=== PATIENT | female | born 1990 | race Caucasian/White ===

== ENCOUNTER 2023-01-01 08:58 | Outpatient (AMB) | payer OTHER, SELFPAY ==
--- NOTE | 2023-01-01 08:59 | MHC.PC.OV ---
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: No Accompanied by: Self / Same As Patient Allergies No Known Allergies Allergy (Verified 01/01/23 09:31) Medication List - Last Reconciled 01/01/23 by Leonel Shipman MD albuterol sulfate 90 mcg/actuation 2 puffs inhalation Q6H PRN cetirizine (Zyrtec) 10 mg PO DAILY PRN fluticasone furoate-vilanterol 100-25 mcg/dose (Breo Ellipta) 1 inh inhalation DAILY fluticasone propionate 50 mcg/actuation 1 spray intranasal DAILY Tobacco use date assessed: 01/01/23 Dental Screening Dental Screen Date: 01/01/23 Did you have a dental visit in the last 12 months?: Yes Did you have a dental problem in the last 6 months where you did not have access to dental care?: No Was dental information given to patient?: Patient has dentist HPI 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 HPI Details Patient comes in today to establish care - is a new patient to the practice Previous PCP was in [place] States that she currently has a few issues that she is concerned about Relates that she tested positive for COVID back in August 2019 and has been experiencing recurrent asthma-like symptoms since States that she has never had asthma growing up and has had no respiratory problems until then Has been advised by her previous PCP after work ups were done that her symptoms are most likely due to long-COVID She has had 2 PFTs done over the past couple of years, in 05/2021 and 05/2022 - both PFTs came back normal Recalls that she has been tried on another inhalers (Flovent BID) previously but she did not respond too well to it Was eventually switched over to Breo Ellipta and her symptoms have responded to this better and she is presently doing well on Breo Has noticed also that her activity tolerance has improved significantly on Breo Ellipta lately She's had a few work ups done over the last 2 to 3 years for her symptoms - had chest CT done in 12/2021 that came out negative with NO evidence of any interstitial lung disease Relates that she smoked just about 1/3 pack per day on average when she was about 17 to 22 y/o but has stopped smoking completely since She continues to follow up with a corporate communications specialist (Dr. Mar Deras) at [facility] for her respiratory issues Relates that she was experiencing on and off palpitations as well with her COVID diagnosis a couple of years ago Had cardiac workups done to evaluate these further - exams include a 48-hours Holter monitor done on 08/14/22 that revealed (+) sinus rhythm with few PACs and PVCs Echocardiogram done in 04/15 came out normal Adds that she noticed some nodules over her supraclavicular areas, especially on the left side, a few months ago and mentioned these to her previous PCP She recently had soft tissue US done a couple of times (10/2022 and 12/2022) over the past few months to have these evaluated Both sonogram came back with only (+) borderline lymphadenopathy and no other abnormalities Patient last had her fasting lipids checked a year ago in 11/2021 - lipids were within normal limits She currently denies any fever or sore throat Denies any headaches or dizziness Denies any chest pains, no SOB No nausea/vomiting, no abdominal pain No change in bowel habits noted Denies any acute urinary symptoms States that she has been on control (Nuvaring) since 14 y/o, mostly for her menstrual cramps, but she decided to stop it on her own recently on 12/23/22 - states that she just wanted to see what would happen if she comes off her Nuvaring States that her is getting a vasectomy next month and if she has no problems after coming off her Nuvaring, then she may decide to just stay off of it for good States that she has already requested and arranged for copies of her medical records to be sent to us from her previous PCP's office a few weeks ago [facility] Medical History (Updated 01/02/23 @ 10:14 by Leonel Shipman MD) Allergic rhinitis COVID-19 (~08/2019) Obesity (BMI 30-39.9) Reactive airway disease Surgical History (Updated 01/02/23 @ 10:01 by Leonel Shipman MD) No pertinent past surgical history Family History Other Diabetes Heart attack Mental health problem Stroke Substance abuse Social History (Updated 01/02/23 @ 10:03 by Leonel Shipman MD) Housing: Other Patient Tobacco Use Status: Former Tobacco user Years Smoked: 5 years - from age 17 to 22 (smoked about 1/3 pack per day at the time) e-Cigarette/Vaping Use: Never Used service: No Current occupational status: employed Cognitive needs: No Hearing needs: No Vision needs: No Female Reproductive History Menstrual control method: vaginal ring (on Nuvaring since 14 y/o but stopped using it on her own since 12/23/2022) Questionnaire PHQ-9 Over the last 2 weeks, how often have you been bothered by any of the following problems? 1. Little interest or pleasure in doing things: not at all 2. Feeling down, depressed, or hopeless: not at all 3. Trouble falling or staying asleep, or sleeping too much: not at all 4. Feeling tired or having little energy: not at all 5. Poor appetite or overeating: not at all 6. Feeling bad about yourself - or that you are a failure or have let yourself or your family down: not at all 7. Trouble concentrating on things, such as reading the newspaper or watching television: not at all 8. Moving or speaking so slowly that other people could have noticed. Or the opposite - being so fidgety or restless that you have been moving around a lot more than usual: not at all 9. Thoughts that you would be better off or of hurting yourself in some way: not at all Total score: 0 Depression Screening Interpretation: Negative 66170 - PHQ-9 Billing: Yes Source: Developed by Drs. Gaston Henson, Edilma Zhou, Carlos Chavez and colleagues, with an educational jacob from [employer]. Thrive Questionnaire Date Thrive assessed: 01/01/23 I am a: Patient What is your living situation today?: I have a steady place to live Within the past 12 months, did the food you bought not last and you didn't have the money to get more?: Never true Within the past 12 months, did you worry whether your food would run out before you got money to buy more?: Never true Do you have trouble paying for medicines?: No Do you have trouble getting transportation to medical appointments?: No Do you have trouble paying your heating and electricity bill?: No Do you have trouble taking care of your child, family member or friend?: No Do you have trouble with day-to-day activities such as bathing, preparing meals, shopping, managing finances, etc.?: No Are you currently unemployed and looking for a job?: No Are you interested in more education?: No Please select the resources that you would like help with: None Currently or been in a relationship where the following occur: no concerns reported AUDIT C Alcohol Use Questionnaire (AUDIT-C) 1. How often do you have a drink containing alcohol?: 2-4 times a month 2. How many drinks containing alcohol do you have on a typical day when you are drinking?: 1 or 2 3. How often do you have six or more drinks on one occasion?: Never Total Score: 2 Score Reviewed/Action Taken: Yes LOPEZ-7 AMB Questionnaire LOPEZ-7 Date LOPEZ - 7 assessed: 01/01/23 Feeling nervous, anxious, or on edge: 0 = Not at all Not being able to stop or control worryin = Not at all Worrying too much about different things: 0 = Not at all Trouble relaxin = Not at all Being so restless that it is hard to sit still: 0 = Not at all Becoming easily annoyed or irritable: 0 = Not at all Feeling afraid as if something awful might happen: 0 = Not at all Total LOPEZ-7 score (0-4 normal; 5-9 mild; 10-14 moderate; 15-21 severe): 0 Source: Developed by Drs. Gaston Henson, Edilma Zhou, Carlos Chavez and colleagues, with an educational jacob from [employer]. Review of Systems Const Denies chills, Denies fatigue, Denies fever(s), Denies headache(s) and Denies malaise Eyes Denies blurry vision, Denies change in vision, Denies irritation and Denies itchy eyes ENT Denies dysphagia, Denies dizziness, Denies otalgia, Denies headache(s), Denies nasal congestion, Denies neck pain, Denies odynophagia, Denies sinus pain and Denies sore throat Card Denies chest pain, Denies rapid heart rate, Denies irregular heart rhythm, Denies palpitations and Reports dyspnea on exertion (mild) Resp Denies chest congestion, Denies cough, Reports dyspnea on exertion (mild) and Denies wheezing GI Denies abdominal pain, Denies bloating, Denies constipation, Denies dysphagia, Denies heartburn, Denies diarrhea, Denies nausea, Denies odynophagia and Denies vomiting Denies hematuria, Denies urinary frequency, Denies dysuria, Denies urinary incontinence and Denies urinary urgency Musc Denies back pain, Denies arthralgias, Denies joint swelling, Denies muscle weakness and Denies neck pain Skin/Breast Denies breast pain, Denies breast mass, Denies change in pigmentation, Denies lesions, Denies rash and Denies unusual bruising Neuro Denies dizziness, Denies headache(s) and Denies paresthesias Psych Denies anxiety and Denies depression Endo Denies fatigue and Denies palpitations Jose/Lymph Denies easy bruising and Reports lymphadenopathy (over the supraclavicular area lately - see HPI) Aller/Immun Denies itchy eyes and Denies wheezing Physical exam (Primary Care) Vital Signs: Last Vital Signs Pulse 84 01/01/23 09:10 BP 110/78 01/01/23 09:10 Pulse Ox 98 01/01/23 09:10 Oxygen Delivery Method Room Air 01/01/23 09:10 BMI result Body Mass Index 33.5 Tobacco/Smoking Status: Tobacco use Status Tobacco use date assessed 01/01/23 01/01/23 09:01 e-Cigarette/Vaping Use Never Used 01/01/23 09:01 PHQ-9: PHQ-9 Score PHQ-9: Total score 0 01/01/23 09:41 Depression Screening Interpretation: Negative Thrive Assessment: Date of Thrive Assessment Date Thrive assessed 01/01/23 01/01/23 09:01 Currently or been in a relationship where the following occur: no concerns reported Const General: no acute distress, alert and awake Orientation/consciousness: patient oriented x3 HENMT Head: Yes normocephalic and Yes atraumatic Ears: external ears normal, TM's normal bilaterally and EAC's normal General nose exam: No nasal discharge present Face and sinus: Yes normal facial exam and Yes sinuses nontender Teeth and gingiva: dentition normal Throat: Yes posterior oropharynx normal and Yes tonsils normal (no TP congestion) Eyes Eyelids: Yes eyelids normal Conjunctivae: conjunctivae normal Pupils: Equal, round and reactive pupils present EOM: EOMs intact bilaterally Neck Neck: Yes no lymphadenopathy and Yes supple Thyroid: Thyroid normal Lymphatic: lymphadenopathy ((+) palpable but non-tender) left supraclavicular Resp Auscultation: clear to auscultation bilaterally, no rales and no wheezes Cardio Rate: regular rate Rhythm: regular rhythm Heart sounds: no murmurs GI Palpation (GI): Soft to palpation, nontender and No hepatosplenomegaly present Auscultation: normal bowel sounds General: Yes no CVA tenderness Back/Spine/Pelvis Back: no CVA tenderness Thoracic/Lumbar Spine: thoracic and lumbar spine normal to inspection Skin Lesions: no lesions Rashes: no rashes Neuro General: patient oriented x3, moves all extremities, no focal motor deficits and CN's II-XI intact bilaterally Cranial nerves: Yes Equal, round and reactive pupils present Cognition (Neuro): normal cognition Gait exam (Neuro): Normal gait present Extrem General: Yes no clubbing, cyanosis or edema Assessment and Plan Assessment & Plan (1) Annual physical exam: Code(s): Z00.00 - Encounter for general adult medical examination without abnormal findings Plan: Check labs (2) Reactive airway disease: Comment: symptoms started after she tested positive for COVID in August 2019 Code(s): J45.909 - Unspecified asthma, uncomplicated Qualifiers: Asthma severity: unspecified severity Asthma persistence: unspecified Asthma complication type: uncomplicated Qualified Code(s): J45.909 - Unspecified asthma, uncomplicated Plan: Is most likely due to long-COVID Patient has had extensive work ups done by her previous PCP and by pulmonary at [facility] over the past 2 to 3 years, including chest CT, x-rays and PFTs, and all of her tests so far have come back negative/normal Continue Breo Ellipta 100-25 mcg 1 inhalation QD and Albuterol HFA 2 inhalations Q 6 hours PRN Follow up with pulmonary medicine at [facility] as scheduled (3) Supraclavicular lymphadenopathy: Code(s): R59.0 - Localized enlarged lymph nodes Plan: Soft tissue US done in 10/2022 and more recently earlier this month (12/2022) both revealed (+) borderline enlarged lymph nodes with no other abnormalities noted Discussed that this is likely a reactive lymphadenopathy, possibly related to her long-COVID symptoms Will also send her for some additional labs for further evaluation and work up for this issue (4) Allergic rhinitis: Code(s): J30.9 - Allergic rhinitis, unspecified Plan: Continue Cetirizine 10 mg QD PRN and Fluticasone 50 mcg nasal spray QD PRN (5) Obesity (BMI 30-39.9): Code(s): E66.9 - Obesity, unspecified Plan: Reinforced diet/exercise as tolerated/lose weight Plan Follow up in 3 months Orders: Orders Comprehensive Met. Panel 01/01/23 J45.909 - Unspecified asthma, uncomplicated, R59.0 - Localized enlarged lymph nodes, Z00.00 - Encounter for general adult medical examination without abnormal findings C Reactive Protein 01/01/23 J45.909 - Unspecified asthma, uncomplicated, R59.0 - Localized enlarged lymph nodes TSH reflex Free T4 01/01/23 J45.909 - Unspecified asthma, uncomplicated, Z00.00 - Encounter for general adult medical examination without abnormal findings Vitamin D 25-OH Total 01/01/23 E55.9 - Vitamin D deficiency, unspecified Complete Blood Count Auto Diff 01/01/23 J45.909 - Unspecified asthma, uncomplicated, R59.0 - Localized enlarged lymph nodes, Z00.00 - Encounter for general adult medical examination without abnormal findings Erythrocyte Sedimentation Rate 01/01/23 R59.0 - Localized enlarged lymph nodes UA CC w/rflx Micro + Cult 01/01/23 R30.0 - Dysuria, Z00.00 - Encounter for general adult medical examination without abnormal findings Lactate Dehydrogenase 01/01/23 R59.0 - Localized enlarged lymph nodes Uric Acid 01/01/23 J45.909 - Unspecified asthma, uncomplicated, M10.9 - Gout, unspecified, R59.0 - Localized enlarged lymph nodes Cat Scratch Titer 01/01/23 R59.0 - Localized enlarged lymph nodes Hepatitis C Antibody Reflex 01/01/23 R59.0 - Localized enlarged lymph nodes Coding Level of Care Code Est Pt Prev Care [id number]) Diagnoses Annual physical exam Z00.00 Reactive airway disease J45.909 Asthma severity: unspecified severity Asthma persistence: unspecified Asthma complication type: uncomplicated Supraclavicular lymphadenopathy R59.0 Allergic rhinitis J30.9 Obesity (BMI 30-39.9) E66.9
[2023-01-01 09:10] VITALS: BP 110/78; PULSE 84; O2SAT 98; BMI 33.5
== END 2023-01-01 10:06 | disposition home or self-care (01) ==
PROVIDERS: PCP Internal Medicine; Visit Provider Internal Medicine
DX: Z00.00 Encounter for general adult medical examination without abnormal findings (principal); J45.909 Unspecified asthma, uncomplicated; R59.0 Localized enlarged lymph nodes; E66.9 Obesity, unspecified
CPT/HCPCS: 99395

== ENCOUNTER 2023-01-01 10:11 | Outpatient (REF) | payer OTHER, SELFPAY ==
[2023-01-01 10:38] LABS: MANUAL DIFF FLAG NO
[2023-01-01 11:13] LABS: Basophils Percent Auto 0.5 % (0-2); Eosinophils Absolute Auto 0.1 X10*3/uL (0.0-0.4); Eosinophils Percent Auto 1.1 % (0-4); Hematocrit 42.1 % (37.0-47.0); Hemoglobin 13.7 g/dl (12.0-16.0); Imm Gran Abs Auto 0.01 X10*3/uL (0.00-0.03); Imm Gran Pct Auto 0.2 % (0.0-0.4); Lymphocytes Absolute Auto 1.9 X10*3/uL (1.2-4.9); Lymphocytes Percent Auto 29.4 % (20-40); Mean Corpuscular HGB Conc 32.5 g/dl (31.0-35.0); Mean Corpuscular Hemoglobin 28.1 pg (27.0-33.0); Mean Corpuscular Volume 86.4 fL (80.0-98.0); Monocytes Absolute Auto 0.4 X10*3/uL (0.1-1.2); Monocytes Percent Auto 6.2 % (2-11); Neutrophils Absolute Auto 4.1 x10*3/uL (2.0-8.3); Neutrophils Percent Auto 62.6 % (45-73); Platelet Count 303 X10*3/uL (160-400); Red Blood Count 4.87 X10*6/uL (4.20-5.50); Red Cell Distribution Width 12.6 % (11.0-16.0); White Blood Count 6.6 X10*3/uL (4.8-10.8)
[2023-01-01 11:14] LABS: Appearance Urine Clear; Color Urine Yellow; Glucose Urine UA Negative (Negative); Leukocyte Esterase Urine Negative (Negative); Nitrite Urine Negative (Negative); PH 6.5 (5.0-9.0); Specific Gravity - Urine <= 1.005 (1.005-1.025); Urine Blood Negative (Negative); Urine Ketones Negative (Negative); Urine Protein Negative (Neg-Trace)
[2023-01-01 11:52] LABS: Erythrocyte Sedimentation Rate 10 MM/HR (0-20)
[2023-01-01 11:53] LABS: Alanine Aminotransferase 25 U/L (0-31); Albumin Level 4.4 g/dL (3.5-5.0); Alkaline Phosphatase 66 U/L (39-117); Anion Gap 12 (12-20); Aspartate Amino Transferase 20 U/L (5-31); Bilirubin Total 0.7 mg/dL (0.0-1.0); Blood Urea Nitrogen 9 mg/dL (9-16); C Reactive Protein 0.51 mg/dL (< or = 0.50); Calcium 9.6 mg/dL (8.4-10.2); Carbon Dioxide 26 mmol/L (22-29); Chloride 106 mmol/L (96-108); Estimated Glomerular Filt Rate > 60; Glucose Random 78 mg/dL (60-115); Lactate Dehydrogenase 214 U/L (122-220); Potassium 4.4 mmol/L (3.3-5.1); Sodium 140 mmol/L (135-145); Total Protein 7.6 g/dL (6.5-8.0)
[2023-01-01 12:09] LABS: TSH reflex Free T4 1.34 uIU/mL (0.32-4.0); Vitamin D 25-OH Total 39.6 ng/mL (>30)
[2023-01-02 03:28] LABS: ~HepC Num1 0.21 S/CO (0.00-0.79); ~Hepatitis C Antibody Nonreactive (Nonreactive)
== END 2023-01-01 10:12 | disposition home or self-care (01) ==
LOC: HO.LAB 10:11
PROVIDERS: PCP Internal Medicine; Visit Provider Internal Medicine
DX: Z00.00 Encounter for general adult medical examination without abnormal findings (principal); J45.909 Unspecified asthma, uncomplicated; R59.0 Localized enlarged lymph nodes; R30.0 Dysuria; E55.9 Vitamin D deficiency, unspecified; M10.9 Gout, unspecified; R53.83 Other fatigue; E66.9 Obesity, unspecified
CPT/HCPCS: 36415; 80053; 81003; 82306; 83615; 84443; 84550; 85025; 85652; 86140; 86611; 86803

== ENCOUNTER 2023-04-07 10:56 | Outpatient (AMB) | payer OTHER, SELFPAY ==
[2023-04-07 10:57] VITALS: BP 116/80; PULSE 93; O2SAT 98; BMI 33.5
--- NOTE | 2023-04-07 10:57 | MHC.PC.OV ---
Vital Signs 04/07/23 10:57 Height 5 ft 4.5 in Weight 198 lb 6 oz BMI 33.5 BP 116/80 Blood Pressure Location Lt brachial Position Sitting Pulse 93 Pulse Source Pulse Oximeter Pulse Oximetry (%) 98 Oxygen Delivery Method Room Air Intake Visit Reasons: 3 month f/u [employer]arel [employer]ro[employer] Digitizer Required: No Accompanied by: Self / Same As Patient Allergies No Known Allergies Allergy (Verified 04/07/23 11:36) Medication List - Last Reconciled 04/07/23 by Leonel Shipman MD albuterol sulfate 90 mcg/actuation 2 puffs inhalation Q6H PRN cetirizine (Zyrtec) 10 mg PO DAILY PRN fluticasone furoate-vilanterol 100-25 mcg/dose (Breo Ellipta) 1 inh inhalation DAILY fluticasone propionate 50 mcg/actuation 1 spray intranasal DAILY Tobacco use date assessed: 04/07/23 Dental Screening Dental Screen Date: 04/07/23 Did you have a dental visit in the last 12 months?: Yes Did you have a dental problem in the last 6 months where you did not have access to dental care?: No Was dental information given to patient?: Patient has dentist HPI 3 month f/u HPI Details Patient comes in today for her follow up visit States that she continues to experience symptoms of chronic fatigue as well as on and off palpitations and frequent sensations of brain fog Cardiac workups done in the past revealed only (+) few PACs and PVCs; her rhythm is sinus; echocardiogram done in 03/2022 came out normal Adds that she still has prominent nodes/nodules over her supraclavicular areas, especially on the left side, and these are mostly the same as before with no change in size; no tenderness is noted with these nodules She had soft tissue US done in 10/2022 and 12/2022 and both sonogram showed only (+) borderline lymphadenopathy with no other abnormalities She is scheduled for a follow up/repeat soft tissue US next month on 04/30/23 at [facility] Patient denies any headaches or dizziness Denies any chest pains, no SOB - states that her breathing seems to be well-controlled on her Breo Ellipta and she continues to follow up with pulmonary at [facility] [place] regularly No nausea/vomiting, no abdominal pain No change in bowel habits noted Would like to go over the results of her labs done a few months ago - she has been advised previously that her labs were all normal Would also like to get her flu shot today PFSH Medical History Obesity (BMI 30-39.9) Allergic rhinitis COVID-19 (~08/2019) Reactive airway disease Surgical History No pertinent past surgical history Family History Other Diabetes Heart attack Mental health problem Stroke Substance abuse Social History Housing: Other Patient Tobacco Use Status: Former Tobacco user Years Smoked: 5 years - from age 17 to 22 (smoked about 1/3 pack per day at the time) e-Cigarette/Vaping Use: Never Used service: No Current occupational status: employed Cognitive needs: No Hearing needs: No Vision needs: No Questionnaire PHQ-9 Over the last 2 weeks, how often have you been bothered by any of the following problems? 1. Little interest or pleasure in doing things: not at all 2. Feeling down, depressed, or hopeless: not at all 3. Trouble falling or staying asleep, or sleeping too much: not at all 4. Feeling tired or having little energy: not at all 5. Poor appetite or overeating: not at all 6. Feeling bad about yourself - or that you are a failure or have let yourself or your family down: not at all 7. Trouble concentrating on things, such as reading the newspaper or watching television: not at all 8. Moving or speaking so slowly that other people could have noticed. Or the opposite - being so fidgety or restless that you have been moving around a lot more than usual: not at all 9. Thoughts that you would be better off or of hurting yourself in some way: not at all Total score: 0 Depression Screening Interpretation: Negative Depression Screening Done: Yes [id number] - PHQ-9 Billing: Yes Source: Developed by Drs. Gaston Henosn, Edilma Zhou, Carlos Chavez and colleagues, with an educational jacob from [employer]. Thrive Questionnaire Date Thrive assessed: 04/07/23 I am a: Patient What is your living situation today?: I have a steady place to live Within the past 12 months, did the food you bought not last and you didn't have the money to get more?: Never true Within the past 12 months, did you worry whether your food would run out before you got money to buy more?: Never true Do you have trouble paying for medicines?: No Do you have trouble getting transportation to medical appointments?: No Do you have trouble paying your heating and electricity bill?: No Do you have trouble taking care of your child, family member or friend?: No Do you have trouble with day-to-day activities such as bathing, preparing meals, shopping, managing finances, etc.?: No Are you currently unemployed and looking for a job?: No Are you interested in more education?: No Please select the resources that you would like help with: None Currently or been in a relationship where the following occur: no concerns reported AUDIT C Alcohol Use Questionnaire (AUDIT-C) 1. How often do you have a drink containing alcohol?: 2-4 times a month 2. How many drinks containing alcohol do you have on a typical day when you are drinking?: 1 or 2 3. How often do you have six or more drinks on one occasion?: Never Total Score: 2 Score Reviewed/Action Taken: Yes LOPEZ-7 AMB Questionnaire LOPEZ-7 Date LOPEZ - 7 assessed: 04/07/23 Feeling nervous, anxious, or on edge: 0 = Not at all Not being able to stop or control worryin = Not at all Worrying too much about different things: 0 = Not at all Trouble relaxin = Not at all Being so restless that it is hard to sit still: 0 = Not at all Becoming easily annoyed or irritable: 0 = Not at all Feeling afraid as if something awful might happen: 0 = Not at all Total LOPEZ-7 score (0-4 normal; 5-9 mild; 10-14 moderate; 15-21 severe): 0 Source: Developed by Drs. Gaston Henson, Edilma Zhou, Carlos Chavez and colleagues, with an educational jacob from [employer]. Review of Systems Const Denies chills, Reports fatigue, Denies fever(s) and Denies headache(s) ENT Denies dysphagia, Denies dizziness, Denies otalgia, Denies headache(s), Denies nasal congestion, Denies neck pain, Denies odynophagia and Denies sore throat Card Denies chest pain, Denies rapid heart rate, Denies irregular heart rhythm ((+) on and off sensations of palpitations), Denies palpitations and Reports dyspnea on exertion (mild) Resp Denies chest congestion, Denies cough, Denies pain on inspiration, Reports dyspnea on exertion (mild) and Denies wheezing GI Denies abdominal pain, Denies bloating, Denies constipation, Denies dysphagia, Denies heartburn, Denies diarrhea, Denies nausea, Denies odynophagia and Denies vomiting Denies hematuria, Denies urinary frequency, Denies dysuria, Denies urinary incontinence and Denies urinary urgency Musc Denies back pain, Denies arthralgias, Denies joint swelling, Denies muscle weakness and Denies neck pain Skin/Breast Denies rash and Denies unusual bruising Neuro Denies dizziness, Denies headache(s) and Denies paresthesias Psych Denies anxiety and Denies depression Endo Reports fatigue and Denies palpitations Jose/Lymph Denies easy bruising and Reports lymphadenopathy (over the supraclavicular area, especially on the left side) Aller/Immun Denies wheezing Physical exam (Primary Care) Vital Signs: Last Vital Signs Pulse 93 04/07/23 10:57 BP 116/80 04/07/23 10:57 Pulse Ox 98 04/07/23 10:57 Oxygen Delivery Method Room Air 04/07/23 10:57 BMI result Body Mass Index 33.5 Tobacco/Smoking Status: Tobacco use Status Tobacco use date assessed 04/07/23 04/07/23 11:04 Patient Tobacco Use Status Former Tobacco user 04/07/23 11:04 e-Cigarette/Vaping Use Never Used 04/07/23 11:04 PHQ-9: PHQ-9 Score PHQ-9: Total score 0 04/07/23 11:38 Depression Screening Interpretation: Negative Thrive Assessment: Date of Thrive Assessment Date Thrive assessed 04/07/23 04/07/23 11:04 Currently or been in a relationship where the following occur: no concerns reported Const General: no acute distress and alert HENMT Ears: TM's normal bilaterally and EAC's normal Face and sinus: Yes sinuses nontender Throat: Yes posterior oropharynx normal and Yes tonsils normal (no TP congestion) Neck Other: (+) prominent supraclavicular lymph nodes, especially on the left side Neck: Yes supple Thyroid: Thyroid normal Lymphatic: lymphadenopathy ((+) palpable but non-tender) Resp Auscultation: clear to auscultation bilaterally, no rales and no wheezes Cardio Rate: regular rate Rhythm: regular rhythm Heart sounds: no murmurs GI Palpation (GI): Soft to palpation and nontender Auscultation: normal bowel sounds General: Yes no CVA tenderness Back/Spine/Pelvis Back: no CVA tenderness Thoracic/Lumbar Spine: thoracic and lumbar spine normal to inspection Skin Rashes: no rashes Extrem General: Yes no clubbing, cyanosis or edema Office Procedures Flu Questionnaire Does the patient have a severe egg allergy?: No Does the patient have severe life threatening allergies?: No Does the patient have a fever or illness today?: No Has the patient ever had Guillain-Julian Syndrome?: No Has the patient ever had any past reaction to a flu shot?: No Immunizations flu vacc [id number] 6mos up(PF) 60 mcg(15 mcgx4)/0.5 mL IM syringe Performing Provider: Leonel Shipman MD [facility] Administered by: Agus Yung on 04/07/23 11:53 Dose Route Admin Location Dispensed Lot Number Expiration Date NDC [employer] 0.5 mL IM Left Deltoid 0.5 mL [id number] 11/22/23 56430-908-27 [employer] VIS Given Date VIS Provided VIS Publication Date 04/07/23 Single Vaccine 20 Eligibility Eligibility Date Funding Source Not [facility] Eligible 04/07/23 Private Results Reviewed Results Reviewed: Laboratory Tests 01/01/23 01/01/23 01/01/23 10:37 10:37 10:37 WBC 6.6 Hgb 13.7 Hct 42.1 Plt Count 303 ESR 10 Sodium 140 Potassium 4.4 Creatinine 0.74 Estimated GFR > 60 Random Glucose 78 Uric Acid 5.0 Calcium 9.6 AST 20 ALT 25 Lactate Dehydrogenase 214 C-Reactive Protein 0.51 H 25-OH Vitamin D Total 39.6 TSH 1.34 Urine pH Ur Specific [place] Urine Protein Urine Glucose (UA) Urine Blood Bartonella henselae IgG Negative Bartonella henselae IgM Negative Hepatitis C Ab (EIA) Nonreactive 01/01/23 01/01/23 Unknown Unknown WBC Hgb Hct Plt Count ESR Sodium Potassium Creatinine Estimated GFR Random Glucose Uric Acid Calcium AST ALT Lactate Dehydrogenase C-Reactive Protein 25-OH Vitamin D Total TSH Urine pH 6.5 Ur Specific [place] <= 1.005 Urine Protein Negative Urine Glucose (UA) Negative Urine Blood Negative Bartonella henselae IgG Bartonella henselae IgM Hepatitis C Ab (EIA) Assessment and Plan Assessment & Plan (1) Long COVID: Code(s): U09.9 - Post COVID-19 condition, unspecified Plan: Patient is advised again that most of her ongoing symptoms are likely due to long-COVID (tested positive for COVID back in August 2019) Results of her labs done a few months ago reviewed and discussed with patient - reassured that ALL of her labs came back normal (2) Supraclavicular lymphadenopathy: Comment: Left side Code(s): R59.0 - Localized enlarged lymph nodes Plan: Soft tissue US done in 10/2022 and in 12/2022 both revealed (+) borderline enlarged lymph nodes with NO other abnormalities noted Advised that all of the additional labs we sent her for in relation to this, including tests for inflammatory markers, serum LDH and tests for Bartonella (Cat's scratch disease), all came back normal or negative Discussed again that this is likely reactive lymphadenopathy, possibly related to her long-COVID symptoms, and no specific intervention is indicated at this time She is scheduled for a follow up US next month on 04/30/2023 (3) Reactive airway disease: Comment: symptoms started after she tested positive for COVID in August 2019 Code(s): J45.909 - Unspecified asthma, uncomplicated Qualifiers: Asthma severity: unspecified severity Asthma persistence: unspecified Asthma complication type: uncomplicated Qualified Code(s): J45.909 - Unspecified asthma, uncomplicated Plan: Is also most likely due to long-COVID Patient has had extensive work ups done by her previous PCP and by pulmonary at [facility] over the past 2 to 3 years, including chest CT, x-rays and PFTs, and all of her tests so far have come back negative/normal Continue Breo Ellipta 100-25 mcg 1 inhalation QD and Albuterol HFA 2 inhalations Q 6 hours PRN Follow up with pulmonary medicine at [facility] [place] as scheduled (4) Allergic rhinitis: Code(s): J30.9 - Allergic rhinitis, unspecified Qualifiers: Allergic rhinitis trigger: unspecified Allergic rhinitis seasonality: unspecified Qualified Code(s): J30.9 - Allergic rhinitis, unspecified Plan: Continue Cetirizine 10 mg QD PRN and Fluticasone 50 mcg nasal spray QD PRN (5) Obesity (BMI 30-39.9): Code(s): E66.9 - Obesity, unspecified Plan: Reinforced diet/exercise as tolerated/lose weight Plan Flu vaccine given today To return in December 2023 for her next annual physical examination Orders: Orders Influenza [id number] Immunization Today Z23 - Encounter for immunization Coding Level of Care Code Est Pt Level 4 (87204) Diagnoses Long COVID U09.9 Supraclavicular lymphadenopathy R59.0 Reactive airway disease without complication, unspecified asthma severity, unspecified whether persistent J45.909 Asthma severity: unspecified severity Asthma persistence: unspecified Asthma complication type: uncomplicated Allergic rhinitis, unspecified seasonality, unspecified trigger J30.9 Allergic rhinitis trigger: unspecified Allergic rhinitis seasonality: unspecified Obesity (BMI 30-39.9) E66.9
== END 2023-04-07 11:59 | disposition home or self-care (01) ==
PROVIDERS: PCP Internal Medicine; Visit Provider Internal Medicine
DX: U09.9 Post COVID-19 condition, unspecified (principal); R59.0 Localized enlarged lymph nodes; E66.9 Obesity, unspecified; Z68.33 Body mass index [BMI] 33.0-33.9, adult; J45.909 Unspecified asthma, uncomplicated; J30.9 Allergic rhinitis, unspecified; Z23 Encounter for immunization
CPT/HCPCS: 90471; 90686; 99214

== ENCOUNTER 2023-04-30 14:31 | Outpatient (REF) | payer OTHER, SELFPAY ==
--- NOTE | ~2023-04-30 | US_ITS ---
EXAMINATION: US SOFT TISSUE HEAD/NECK CLINICAL INFORMATION: Localized enlarged lymph nodes. COMPARISON: None available. TECHNIQUE: Linear transducer forte-scale and color Doppler examination of the left neck. FINDINGS: The cutaneous, subcutaneous, muscular and fascial planes are unremarkable. Within the left cervical region, 0.9 x 0.5 x 0.6 cm, 0.8 x 0.3 x 0.5 cm and 1.4 x 0.9 x 1.2 cm reniform lymph nodes are seen. These show good corticomedullary differentiation and a vascular hilum. No focal cortical thickening is suspected. No mass, cyst or foreign body is seen. US/US soft tiss head and/or neck IMPRESSION: Left cervical lymph nodes are seen, one borderline enlarged. These show benign imaging features. Recommend management on a clinical basis. If of continued clinical concern, consider short-term follow-up ultrasound imaging in 3-6 months to ensure stability/regression.
== END 2023-04-30 14:32 | disposition home or self-care (01) ==
LOC: HO.US 14:31
PROVIDERS: PCP Internal Medicine; Visit Provider Internal Medicine
DX: R22.1 Localized swelling, mass and lump, neck (principal)
CPT/HCPCS: 76536

== ENCOUNTER 2023-09-04 11:55 | Outpatient (AMB) | payer OTHER, SELFPAY ==
[2023-09-04 12:22] VITALS: BP 118/78; PULSE 100; TEMP 36.8; O2SAT 98; BMI 33.4
--- NOTE | 2023-09-04 12:22 | AM.OFFWIN_ITS ---
Intake Vital Signs 09/04/23 12:22 Height 5 ft 4.5 in Weight 197 lb 8 oz BMI 33.4 BP 118/78 Blood Pressure Location Lt brachial Position Sitting Pulse 100 Pulse Source Pulse Oximeter Temp 98.3 F Temp Source Temporal Artery Scan Pulse Oximetry (%) 98 Oxygen Delivery Method Room Air Intake Visit Reasons: Ear & Throat Pain, Sinus Pressure (Lobby) Intake Note: pt is here for c/o ear and throat pain from coughing or post nasal drip, and sinus and head pressure Patient Tobacco Use Status: Former Tobacco user Allergies No Known Allergies Allergy (Verified 09/04/23 12:22) Do you need a note to return to daycare/school/sports/work: Yes HPI HPI Comments History of Present Illness Details 32-year-old female who comes in today co mplaining of left ear pain and sinus pressure for the last 4 days. [facility] Medical History Obesity (BMI 30-39.9) Allergic rhinitis COVID-19 (~08/2019) Reactive airway disease Surgical History No pertinent past surgical history Family History Other Diabetes Heart attack Mental health problem Stroke Substance abuse Social History Housing: Other Patient Tobacco Use Status: Former Tobacco user Years Smoked: 5 years - from age 17 to 22 (smoked about 1/3 pack per day at the time) e-Cigarette/Vaping Use: Never Used service: No Current occupational status: employed Cognitive needs: No Hearing needs: No Vision needs: No Review of Systems Const All systems reviewed & are unremarkable except as noted in HPI and below Eyes Reports no additional complaints ENT Reports otalgia and Reports sinus pressure Card Reports no additional complaints Resp Reports no additional complaints GI Reports no additional complaints Physical Exam Const General: healthy appearing and no acute distress HEENT Head: Yes normal to inspection, Yes normocephalic and Yes atraumatic Ears: hearing grossly normal bilaterally, external ears normal, TM normal on the right and TM abnormal (left) bulging and wth effusion General nose exam: Normal external nose present Face and sinus: Yes sinus tenderness Resp Effort & Inspection: normal respiratory effort Auscultation: clear to auscultation bilaterally Cardio Rate: regular rate Rhythm: regular rhythm Heart sounds: S1 normal heart sound present and S2 normal heart sound present Assessment & Plan Assessment & Plan (1) Otitis media: Code(s): H66.90 - Otitis media, unspecified, unspecified ear Plan: The patient will take antibiotics for 7 days. Follow up with her PCP as needed Plan See plan Medications: New amoxicillin 875 mg PO BID 7 days 14 tabs 0RF Coding Level of Care Code Est Pt Level 3 (93214) Diagnoses Otitis media H66.90
== END 2023-09-04 16:13 | disposition home or self-care (01) ==
PROVIDERS: PCP Internal Medicine; Visit Provider Physician Assistant Medical
DX: H66.90 Otitis media, unspecified, unspecified ear (principal)
CPT/HCPCS: 99213

== ENCOUNTER 2023-09-17 11:43 | Outpatient (AMB) | payer OTHER, SELFPAY ==
[2023-09-17 11:50] VITALS: BP 118/72; PULSE 70; O2SAT 98; BMI 32.4
--- NOTE | 2023-09-17 11:50 | A.OFFPC_ITS ---
Vital Signs 09/17/23 11:50 Height 5 ft 4.5 in Weight 192 lb 0.4 oz BMI 32.4 BP 118/72 Blood Pressure Location Lt brachial Position Sitting Pulse 70 Pulse Source Pulse Oximeter Pulse Oximetry (%) 98 Oxygen Delivery Method Room Air Intake Visit Reasons: Left Ear Discomfort, allergies Dental Assistant Instructor Required: No Allergies No Known Allergies Allergy (Verified 09/17/23 12:09) Medication List - Last Reconciled 09/17/23 by Leonel Shipman MD albuterol sulfate 90 mcg/actuation 2 puffs inhalation Q6H PRN cetirizine (Zyrtec) 10 mg PO DAILY PRN fluticasone furoate-vilanterol 100-25 mcg/dose (Breo Ellipta) 1 inh inhalation DAILY fluticasone propionate 50 mcg/actuation 1 spray intranasal DAILY Tobacco use date assessed: 09/17/23 Dental Screening Dental Screen Date: 09/17/23 HPI Left Ear Discomfort, allergies HPI Details Patient comes in today for follow up on her left ear symptoms She went to the walk-in clinic a couple of weeks ago for increasing left ear pain and sinus pressure and was started on Amoxicillin 875 mg BID x 7 days, which she finished less than a week ago States that her symptoms have improved a lot with her Rx but notes that her ear symptoms never did completely clear up She continues to have some ear pressure and discomfort and feels that her symptoms are starting to get worse again over the past couple of days She denies any fever or sore throat; denies any headaches or dizziness Denies any chest pains, no SOB No nausea/vomiting, no abdominal pain No change in bowel habits noted PFSH Medical History Obesity (BMI 30-39.9) Allergic rhinitis COVID-19 (~08/2019) Reactive airway disease Surgical History No pertinent past surgical history Family History Other Diabetes Heart attack Mental health problem Stroke Substance abuse Social History Housing: Other Patient Tobacco Use Status: Former Tobacco user Years Smoked: 5 years - from age 17 to 22 (smoked about 1/3 pack per day at the time) e-Cigarette/Vaping Use: Never Used service: No Current occupational status: employed Cognitive needs: No Hearing needs: No Vision needs: No Questionnaire PHQ-9 Over the last 2 weeks, how often have you been bothered by any of the following problems? 1. Little interest or pleasure in doing things: not at all 2. Feeling down, depressed, or hopeless: not at all 3. Trouble falling or staying asleep, or sleeping too much: not at all 4. Feeling tired or having little energy: not at all 5. Poor appetite or overeating: not at all 6. Feeling bad about yourself - or that you are a failure or have let yourself or your family down: not at all 7. Trouble concentrating on things, such as reading the newspaper or watching television: not at all 8. Moving or speaking so slowly that other people could have noticed. Or the opposite - being so fidgety or restless that you have been moving around a lot more than usual: not at all 9. Thoughts that you would be better off or of hurting yourself in some way: not at all Total score: 0 Depression Screening Interpretation: Negative Depression Screening Done: Yes 32707 - PHQ-9 Billing: Yes Source: Developed by Drs. Gaston Henson, Edilma Zhou, Carlos Chavez and colleagues, with an educational jacob from [employer]. Thrive Questionnaire Date Thrive assessed: 09/17/23 I am a: Patient What is your living situation today?: I have a steady place to live Within the past 12 months, did the food you bought not last and you didn't have the money to get more?: Never true Within the past 12 months, did you worry whether your food would run out before you got money to buy more?: Never true Do you have trouble paying for medicines?: No Do you have trouble getting transportation to medical appointments?: No Do you have trouble paying your heating and electricity bill?: No Do you have trouble taking care of your child, family member or friend?: No Do you have trouble with day-to-day activities such as bathing, preparing meals, shopping, managing finances, etc.?: No Are you currently unemployed and looking for a job?: No Are you interested in more education?: No Please select the resources that you would like help with: None Currently or been in a relationship where the following occur: no concerns reported THRIVE Score: 0 AUDIT C Alcohol Use Questionnaire (AUDIT-C) 1. How often do you have a drink containing alcohol?: 2-4 times a month 2. How many drinks containing alcohol do you have on a typical day when you are drinking?: 1 or 2 3. How often do you have six or more drinks on one occasion?: Never Total Score: 2 Score Reviewed/Action Taken: Yes LOPEZ-7 AMB Questionnaire LOPEZ-7 Date LOPEZ - 7 assessed: 09/17/23 Feeling nervous, anxious, or on edge: 0 = Not at all Not being able to stop or control worryin = Not at all Worrying too much about different things: 0 = Not at all Trouble relaxin = Not at all Being so restless that it is hard to sit still: 0 = Not at all Becoming easily annoyed or irritable: 0 = Not at all Feeling afraid as if something awful might happen: 0 = Not at all Total LOPEZ-7 score (0-4 normal; 5-9 mild; 10-14 moderate; 15-21 severe): 0 Source: Developed by Drs. Gaston Henson, Edilma Zhou, Carlos Chavez and colleagues, with an educational jacob from [employer]. LOPEZ-7 Assessment Billing LOPEZ-7 Assessment Tool: LOPEZ-7 Assessment 19921 Review of Systems Const Denies chills, Denies fatigue, Denies fever(s) and Denies headache(s) ENT Reports as per HPI, Denies dysphagia, Denies dizziness, Denies ear discharge, D enies otalgia (but reports (+) left ear discomfort/pressure - increasing lately), Denies facial pain, Denies headache(s), Denies neck pain, Denies odynophagia, Reports sinus pressure (especially on the left side) and Denies sore throat Card Denies chest pain, Denies palpitations and Denies dyspnea Resp Denies cough and Denies dyspnea GI Denies abdominal pain, Denies constipation, Denies dysphagia, Denies heartburn, Denies diarrhea, Denies nausea, Denies odynophagia and Denies vomiting Denies difficulty voiding, Denies nocturia, Denies dysuria and Denies urinary urgency Musc Denies neck pain Skin/Breast Denies rash Neuro Denies dizziness and Denies headache(s) Endo Denies fatigue and Denies palpitations Physical exam (Primary Care) Vital Signs: Last Vital Signs Pulse 70 09/17/23 11:50 BP 118/72 09/17/23 11:50 Pulse Ox 98 09/17/23 11:50 Oxygen Delivery Method Room Air 09/17/23 11:50 BMI result Body Mass Index 32.4 Tobacco/Smoking Status: Tobacco use Status Tobacco use date assessed 09/17/23 09/17/23 11:54 Patient Tobacco Use Status Former Tobacco user 09/17/23 11:54 e-Cigarette/Vaping Use Never Used 09/17/23 11:54 PHQ-9: PHQ-9 Score PHQ-9: Total score 0 09/17/23 12:09 Depression Screening Interpretation: Negative Thrive Assessment: Date of Thrive Assessment Date Thrive assessed 09/17/23 09/17/23 11:54 Currently or been in a relationship where the following occur: no concerns reported Const General: no acute distress and alert HENMT Ears: TM normal on the right, EAC's normal (bilaterally) and TM abnormal with fluid behind the TM on the left Throat: Yes posterior oropharynx normal and Yes tonsils normal (no TP congestion) Neck Neck: Yes no lymphadenopathy and Yes supple Resp Auscultation: clear to auscultation bilaterally, no rales and no wheezes Cardio Rate: regular rate Rhythm: regular rhythm Heart sounds: no murmurs GI Palpation (GI): Soft to palpation, nontender and No hepatosplenomegaly present Skin General skin exam: no rashes or lesions noted Extrem General: Yes no clubbing, cyanosis or edema Assessment and Plan Assessment & Plan (1) Otitis media of left ear: Code(s): H66.92 - Otitis media, unspecified, left ear Qualifiers: Otitis media type: unspecified Qualified Code(s): H66.92 - Otitis media, unspecified, left ear Plan: Will start patient this time on Augmentin 875 mg BID x 10 days Have advised patient that her ear symptoms may take a while to completely clear up but they should improve gradually with Rx but if they do not, then we may need to consider referral to ENT for further evaluation and management Plan To return as scheduled in 4 months for her annual physical examination Medications: New amoxicillin-pot clavulanate 875-125 mg 1 tab PO BID 10 days 20 tabs 0RF Coding Level of Care Code Est Pt Level 3 (34362) Diagnoses Left otitis media, unspecified otitis media type H66.92 Otitis media type: unspecified Additional Codes LOPEZ-7 Assessment Billing - LOPEZ-7 Assessment Tool: LOPEZ-7 Assessment 26617 ([id number])
== END 2023-09-17 12:23 | disposition home or self-care (01) ==
PROVIDERS: PCP Internal Medicine; Visit Provider Internal Medicine
DX: H66.92 Otitis media, unspecified, left ear (principal)
CPT/HCPCS: 99213

== ENCOUNTER 2024-01-28 11:05 | Outpatient (AMB) | payer OTHER, SELFPAY ==
[2024-01-28 11:10] VITALS: BP 116/80; PULSE 66; O2SAT 98; BMI 32.2
--- NOTE | 2024-01-28 11:10 | A.OFFPC_ITS ---
Vital Signs 01/28/24 11:10 Height 5 ft 4.5 in Weight 190 lb 8 oz BMI 32.2 BP 116/80 Blood Pressure Location Lt brachial Position Sitting Pulse 66 Pulse Source Pulse Oximeter Pulse Oximetry (%) 98 Oxygen Delivery Method Room Air Intake Visit Reasons: PE Call Worker Required: No Accompanied by: Self / Same As Patient Allergies No Known Allergies Allergy (Verified 01/28/24 11:29) Medication List - Last Reconciled 01/28/24 by Leonel Shipman MD albuterol sulfate 90 mcg/actuation 2 puffs inhalation Q6H PRN cetirizine (Zyrtec) 10 mg PO DAILY PRN fluticasone furoate-vilanterol 100-25 mcg/dose (Breo Ellipta) 1 inh inhalation DAILY fluticasone propionate 50 mcg/actuation 1 spray intranasal DAILY Tobacco use date assessed: 01/28/24 Dental Screening Dental Screen Date: 01/28/24 Did you have a dental visit in the last 12 months?: Yes Did you have a dental problem in the last 6 months where you did not have access to dental care?: No Was dental information given to patient?: Patient has dentist HPI PE HPI Details Patient comes in today for her annual physical examination States that she feels okay but she continues to experience recurrent flare ups of her long-COVID symptoms, especially on the days when she has to present to work in-person, which she states make her feel fatigued and worn down quickly She continues to receive allergy injections/immunotherapy from 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 but states that she is now on a maintenance Tx and just gets her injections once a month - feels that her injections are still helping with her allergies She denies any headaches or dizziness Denies any chest pains, no increased SOB - notes that her respiratory symptoms have been well-controlled on her current Rx (is on Breo Ellipta) but 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 her 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 soon No nausea/vomiting, no abdominal pain No change in bowel habits noted She denies any acute urinary symptoms States that she is up-to-date with her yearly pap smear and gynecology exam - had her exam done already this year [facility] Medical History Obesity (BMI 30-39.9) Allergic rhinitis COVID-19 (~08/2019) Reactive airway disease Surgical History No pertinent past surgical history Family History Other Diabetes Heart attack Mental health problem Stroke Substance abuse Social History Housing: Other Patient Tobacco Use Status: Former Tobacco user Years Smoked: 5 years - from age 17 to 22 (smoked about 1/3 pack per day at the time) e-Cigarette/Vaping Use: Never Used service: No Current occupational status: employed Cognitive needs: No Hearing needs: No Vision needs: No Questionnaire PHQ-9 Over the last 2 weeks, how often have you been bothered by any of the following problems? 1. Little interest or pleasure in doing things: not at all 2. Feeling down, depressed, or hopeless: not at all 3. Trouble falling or staying asleep, or sleeping too much: not at all 4. Feeling tired or having little energy: several days 5. Poor appetite or overeating: not at all 6. Feeling bad about yourself - or that you are a failure or have let yourself or your family down: not at all 7. Trouble concentrating on things, such as reading the newspaper or watching television: several days 8. Moving or speaking so slowly that other people could have noticed. Or the opposite - being so fidgety or restless that you have been moving around a lot more than usual: not at all 9. Thoughts that you would be better off or of hurting yourself in some way: not at all Total score: 2 Depression Screening Interpretation: Negative Depression Screening Done: Yes 11811 - PHQ-9 Billing: Yes Source: Developed by Drs. Gaston Henson, Edilma Zhou, Carlos Chavez and colleagues, with an educational jacob from [employer]. Thrive Questionnaire Date Thrive assessed: 01/28/24 I am a: Patient What is your living situation today?: I have a steady place to live Within the past 12 months, did the food you bought not last and you didn't have the money to get more?: Never true Within the past 12 months, did you worry whether your food would run out before you got money to buy more?: Never true Do you have trouble paying for medicines?: No Do you have trouble getting transportation to medical appointments?: No Do you have trouble paying your heating and electricity bill?: No Do you have trouble taking care of your child, family member or friend?: No Do you have trouble with day-to-day activities such as bathing, preparing meals, shopping, managing finances, etc.?: I choose not to answer this question Are you currently unemployed and looking for a job?: No Are you interested in more education?: No Please select the resources that you would like help with: None Currently or been in a relationship where the following occur: No concerns reported THRIVE Score: 0 AUDIT C Alcohol Use Questionnaire (AUDIT-C) 1. How often do you have a drink containing alcohol?: 2-4 times a month 2. How many drinks containing alcohol do you have on a typical day when you are drinking?: 1 or 2 3. How often do you have six or more drinks on one occasion?: Never Total Score: 2 Score Reviewed/Action Taken: Yes LOPEZ-7 AMB Questionnaire LOPEZ-7 Date LOPEZ - 7 assessed: 01/28/24 Feeling nervous, anxious, or on edge: 0 = Not at all Not being able to stop or control worryin = Not at all Worrying too much about different things: 0 = Not at all Trouble relaxin = Not at all Being so restless that it is hard to sit still: 0 = Not at all Becoming easily annoyed or irritable: 0 = Not at all Feeling afraid as if something awful might happen: 0 = Not at all Total LOPEZ-7 score (0-4 normal; 5-9 mild; 10-14 moderate; 15-21 severe): 0 Source: Developed by Drs. Gaston Henson, Edilma Zhou, Carlos Chavez and colleagues, with an educational jacob from [employer]. Review of Systems Const Reports as per HPI, Denies chills, Denies difficulty sleeping, Reports fatigue, Denies fever(s), Denies headache(s) and Denies malaise Eyes Denies blurry vision, Denies change in vision, Denies irritation and Denies itchy eyes ENT Denies dysphagia, Denies dizziness, Denies otalgia, Denies headache(s), Denies nasal congestion, Denies neck pain, Denies odynophagia, Denies sinus pain and Denies sore throat Card Denies chest pain, Denies rapid heart rate, Denies irregular heart rhythm, Denies palpitations and Denies dyspnea Resp Denies chest congestion, Denies cough, Denies dyspnea and Denies wheezing GI Denies abdominal pain, Denies bloating, Denies constipation, Denies dysphagia, Denies heartburn, Denies diarrhea, Denies nausea, Denies odynophagia and Denies vomiting Denies hematuria, Denies urinary frequency, Denies dysuria, Denies urinary incontinence and Denies urinary urgency Musc Denies back pain, Denies arthralgias, Denies joint swelling, Denies muscle weakness and Denies neck pain Skin/Breast Denies breast pain, Denies breast mass, Denies change in pigmentation, Denies lesions, Denies rash and Denies unusual bruising Neuro Denies dizziness, Denies headache(s) and Denies paresthesias Psych Denies anxiety and Denies depression Endo Reports fatigue and Denies palpitations Jose/Lymph Denies easy bruising Aller/Immun Denies itchy eyes and Denies wheezing Physical exam (Primary Care) Vital Signs: Last Vital Signs Pulse 66 01/28/24 11:10 BP 116/80 01/28/24 11:10 Pulse Ox 98 01/28/24 11:10 Oxygen Delivery Method Room Air 01/28/24 11:10 BMI result Body Mass Index 32.2 Tobacco/Smoking Status: Tobacco use Status Tobacco use date assessed 01/28/24 01/28/24 11:17 Patient Tobacco Use Status Former Tobacco user 01/28/24 11:17 e-Cigarette/Vaping Use Never Used 01/28/24 11:17 PHQ-9: PHQ-9 Score PHQ-9: Total score 2 01/28/24 11:17 Depression Screening Interpretation: Negative Thrive Assessment: Date of Thrive Assessment Date Thrive assessed 01/28/24 01/28/24 11:17 Currently or been in a relationship where the following occur: No concerns reported Const General: no acute distress, alert and awake Orientation/consciousness: patient oriented x3 HENMT Head: Yes normocephalic and Yes atraumatic Ears: external ears normal, TM's normal bilaterally and EAC's normal General nose exam: No nasal discharge present Face and sinus: Yes normal facial exam and Yes sinuses nontender Teeth and gingiva: dentition normal Throat: Yes posterior oropharynx normal and Yes tonsils normal (no TP congestion) Eyes Eyelids: Yes eyelids normal Conjunctivae: conjunctivae normal Pupils: Equal, round and reactive pupils present EOM: EOMs intact bilaterally Neck Neck: Yes no lymphadenopathy and Yes supple Thyroid: Thyroid normal Resp Auscultation: clear to auscultation bilaterally, no rales and no wheezes Cardio Rate: regular rate Rhythm: regular rhythm Heart sounds: no murmurs GI Palpation (GI): Soft to palpation, nontender and No hepatosplenomegaly present Auscultation: normal bowel sounds General: Yes no CVA tenderness Back/Spine/Pelvis Back: no CVA tenderness Thoracic/Lumbar Spine: thoracic and lumbar spine normal to inspection Skin Lesions: no lesions Rashes: no rashes Neuro General: patient oriented x3, moves all extremities, no focal motor deficits and CN's II-XI intact bilaterally Cranial nerves: Yes Equal, round and reactive pupils present Cognition (Neuro): normal cognition Gait exam (Neuro): Normal gait present Extrem General: Yes no clubbing, cyanosis or edema Assessment and Plan Assessment & Plan (1) Annual physical exam: Code(s): Z00.00 - Encounter for general adult medical examination without abnormal findings Plan: Check labs - advised patient that we will check back with her if any of her labs come back with abnormal or unusual results She is up-to-date with her yearly pap smear and gynecology exam - goes to [facility] at [facility] (2) Long COVID: Code(s): U09.9 - Post COVID-19 condition, unspecified Plan: She initially tested positive for COVID back in August 2019 and has been experiencing frequent/recurrent symptoms of long-COVID since States that her symptoms have been mostly stable but flare up quickly when she has to present to work in-person She is currently still working on a hybrid schedule and works at least half of the time remotely from home, which helps her a lot with her struggle with her long-COVID symptoms (3) Supraclavicular lymphadenopathy: Comment: Left side Code(s): R59.0 - Localized enlarged lymph nodes Plan: Soft tissue US done on 04/30/2023, in 10/2022 and in 12/2022 have all revealed (+) borderline enlarged lymph nodes with NO other abnormalities noted All of her additional labs, including tests for inflammatory markers, serum LDH and tests for Bartonella (Cat's scratch disease), have come back normal or negative Have discussed with patient that this is likely reactive lymphadenopathy, possibly related to her long-COVID symptoms, and no specific intervention is i ndicated at this time unless anything changes abruptly (4) Reactive airway disease: Comment: symptoms started after she tested positive for COVID in August 2019 Code(s): J45.909 - Unspecified asthma, uncomplicated Qualifiers: Asthma severity: unspecified severity Asthma persistence: unspecified Asthma complication type: uncomplicated Qualified Code(s): J45.909 - Unspecified asthma, uncomplicated Plan: This is most likely also related to her long-COVID symptoms Patient has had extensive work ups done by her previous PCP and by pulmonary at [facility] over the past 2 to 3 years, including chest CT, x-rays and PFTs, and all of her tests so far have come back negative/normal Continue Breo Ellipta 100-25 mcg 1 inhalation QD and Albuterol HFA 2 inhalations Q 6 hours PRN although she states that pulmonary is considering stepping her down from Breo Ellipta to Pulmicort soon Follow up with pulmonary medicine at [facility] as scheduled (5) Allergic rhinitis: Code(s): J30.9 - Allergic rhinitis, unspecified Qualifiers: Allergic rhinitis trigger: unspecified Allergic rhinitis seasonality: unspecified Qualified Code(s): J30.9 - Allergic rhinitis, unspecified Plan: Continue Cetirizine 10 mg QD PRN and Fluticasone 50 mcg nasal spray QD PRN She continues to receive maintenance immunotherapy/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 Panel Fast Today E78.00 - Pure hypercholesterolemia, unspecified, Z00.00 - Encounter for general adult medical examination without abnormal findings Lipid Panel Today E78.00 - Pure hypercholesterolemia, unspecified, Z00.00 - Encounter for general adult medical examination without abnormal findings UA CC w/rflx Micro + Cult Today R30.0 - Dysuria, Z00.00 - Encounter for general adult medical examination without abnormal findings Vitamin D 25-OH Total Today E55.9 - Vitamin D deficiency, unspecified, Z00.00 - Encounter for general adult medical examination without abnormal findings Complete Blood Count Auto Diff Today D64.9 - Anemia, unspecified, Z00.00 - Encounter for general adult medical examination without abnormal findings TSH reflex Free T4 Today E78.00 - Pure hypercholesterolemia, unspecified, Z00.00 - Encounter for general adult medical examination without abnormal findings Coding Level of Care Code Est Pt Prev Care 18-39y(52661) Diagnoses Annual physical exam Z00.00 Long COVID U09.9 Supraclavicular lymphadenopathy R59.0 Reactive airway disease without complication, unspecified asthma severity, unspecified whether persistent J45.909 Asthma severity: unspecified severity Asthma persistence: unspecified Asthma complication type: uncomplicated Allergic rhinitis, unspecified seasonality, unspecified trigger J30.9 Allergic rhinitis trigger: unspecified Allergic rhinitis seasonality: unspecified Obesity (BMI 30-39.9) E66.9
== END 2024-01-28 11:42 | disposition home or self-care (01) ==
PROVIDERS: PCP Internal Medicine; Visit Provider Internal Medicine
DX: Z00.00 Encounter for general adult medical examination without abnormal findings (principal); U09.9 Post COVID-19 condition, unspecified; R59.0 Localized enlarged lymph nodes; J45.909 Unspecified asthma, uncomplicated
CPT/HCPCS: 99395

== ENCOUNTER 2024-02-10 13:40 | Outpatient (REF) | payer OTHER, SELFPAY ==
[2024-02-10 17:41] LABS: Influenza A PCR NEGATIVE (Negative); Influenza B PCR NEGATIVE (Negative); Resp Syncy Virus RNA Qual PCR NEGATIVE (Negative); SARS COV2 PCR INHOUSE NEGATIVE (Negative)
== END 2024-02-10 13:41 | disposition home or self-care (01) ==
LOC: HO.LAB 13:40
PROVIDERS: PCP Internal Medicine; Visit Provider Physician Assistant
DX: J06.9 Acute upper respiratory infection, unspecified (principal)
CPT/HCPCS: 0241U

== ENCOUNTER 2024-02-10 13:40 | Outpatient (AMB) | payer OTHER, SELFPAY ==
--- NOTE | 2024-02-10 13:42 | AM.OFFWIN_ITS ---
Intake Vital Signs 02/10/24 13:44 Height 5 ft 4.5 in Weight 189 lb BMI 31.9 BP 108/66 Blood Pressure Location Lt brachial Position Sitting Pulse 77 Pulse Source Pulse Oximeter Temp 99.0 F Temp Source Oral Pulse Oximetry (%) 98 Oxygen Delivery Method Room Air Intake Visit Reasons: EP ?Ear infection/COVID + 01/31 Intake Note: pt c/o RT ear pain. Covid + 01/31 Patient Tobacco Use Status: Former Tobacco user Allergies No Known Allergies Allergy (Verified 02/10/24 13:43) Do you need a note to return to daycare/school/sports/work: No HPI HPI Comments History of Present Illness Details Patient is a 33-year-old female with a past medical history of long COVID (brain fog, asthma, fatigue, heart palpitations) complaining of right ear pain and rebound like symptoms after taking Paxlovid. Patient states she tested positive for COVID on January 31, started taking Paxlovid and February 02 and then finished it February 06 which was 2 days ago. She feels like her symptoms got worse yesterday and is unsure if she should be going back to work. She states she has a therapist at [facility] and they are very flexible and do not want her to come back to work while she is sick. She just isn't sure how to differentiate all of it. She states that she does have some residual right ear pain, she slept 16 hours yesterday which is not her normal. She denies any high fevers, cough, congestion, nausea vomiting diarrhea. Patient also has a 2nd complaint, she thinks she might have a yeast infection. She said that she has some milky white discharge and some of it is chunky. She denies any recent antibiotic use but did have a antibiotic prescribed for an ear infection earlier this summer. She states she feels like it is the beginning of a yeast infection. [facility] Medical History Obesity (BMI 30-39.9) Allergic rhinitis COVID-19 (~08/2019) Reactive airway disease Surgical History No pertinent past surgical history Family History Other Diabetes Heart attack Mental health problem Stroke Substance abuse Social History Housing: Other Patient Tobacco Use Status: Former Tobacco user Years Smoked: 5 years - from age 17 to 22 (smoked about 1/3 pack per day at the time) e-Cigarette/Vaping Use: Never Used service: No Current occupational status: employed Cognitive needs: No Hearing needs: No Vision needs: No Review of Systems Const All systems reviewed & are unremarkable except as noted in HPI and below Physical Exam Vital Signs: Last Vital Signs Temp 99.0 F 02/10/24 13:44 Pulse 77 02/10/24 13:44 BP 108/66 02/10/24 13:44 Pulse Ox 98 02/10/24 13:44 Oxygen Delivery Method Room Air 02/10/24 13:44 BMI result Body Mass Index 31.9 Const General: cooperative, comfortable, no acute distress and tired appearing Orientation/consciousness: patient oriented x3 Limitations: no limitations HEENT Head: Yes normal to inspection Ears: hearing grossly normal bilaterally, external ears normal and TM's normal bilaterally General nose exam: Normal external nose present, Normal nares present and No nasal discharge present Face and sinus: Yes normal facial exam Mouth: Normal oral and palatal mucosa present and moist mucous membranes Eyes General: appearance normal, both eyes and all related structures Neck Neck: Yes normal visual inspection Resp Effort & Inspection: normal respiratory effort, able to speak in complete sentences, no respiratory distress, not tachypneic, no tripod positioning and no use of accessory muscles Skin General skin exam: no rashes or lesions noted Neuro General: patient oriented x3 Extrem General: Yes normal to inspection and Yes no clubbing, cyanosis or edema Assessment & Plan Assessment & Plan (1) URI (upper respiratory infection): Code(s): J06.9 - Acute upper respiratory infection, unspecified Qualifiers: URI type: unspecified URI Qualified Code(s): J06.9 - Acute upper respiratory infection, unspecified Plan: Vital signs are stable and patient is fatigued looking but well-appearing, physical exam was unremarkable. Recommended she add a daily allergy pill to help with any residual fluid that might be in her ear, both ears looked uninfected. Recommended she follow the CDC guidelines and stay out of work until she is fever free and symptom free from her COVID infection for 24 hours then she should wear a mask for the 1st 5 days she goes out to the general public. We did retested for COVID but educated the patient that it is really more important she follow the CDC guidelines and go back to work based on how she is feeling. (2) Yeast infection: Code(s): B37.9 - Candidiasis, unspecified Plan: We will treat based on symptoms, sent 1 pill to patient's pharmacy. Plan see above Orders: Orders SARS-CoV2/FLU/RSV Today J06.9 - Acute upper respiratory infection, unspecified Medications: New fluconazole 150 mg PO ONCE 1 day 1 tab 0RF Coding Level of Care Code Est Pt Level 4 (29214) Diagnoses Upper respiratory tract infection, unspecified type J06.9 URI type: unspecified URI Yeast infection B37.9
[2024-02-10 13:44] VITALS: BP 108/66; PULSE 77; TEMP 37.2; O2SAT 98; BMI 31.9
== END 2024-02-10 14:16 | disposition home or self-care (01) ==
PROVIDERS: PCP Internal Medicine; Visit Provider Physician Assistant
DX: J06.9 Acute upper respiratory infection, unspecified (principal); B37.9 Candidiasis, unspecified

== ENCOUNTER 2024-05-02 09:41 | Outpatient (REF) | payer OTHER, SELFPAY ==
[2024-05-02 10:00] LABS: MANUAL DIFF FLAG NO
[2024-05-02 10:09] LABS: Basophils Percent Auto 0.3 % (0-2); Eosinophils Absolute Auto 0.1 X10*3/uL (0.0-0.4); Eosinophils Percent Auto 0.8 % (0-4); Hematocrit 40.2 % (37.0-47.0); Hemoglobin 13.2 g/dl (12.0-16.0); Imm Gran Abs Auto 0.01 X10*3/uL (0.00-0.03); Imm Gran Pct Auto 0.2 % (0.0-0.4); Lymphocytes Absolute Auto 1.8 X10*3/uL (1.2-4.9); Lymphocytes Percent Auto 28.5 % (20-40); Mean Corpuscular HGB Conc 32.8 g/dl (31.0-35.0); Mean Corpuscular Hemoglobin 28.4 pg (27.0-33.0); Mean Corpuscular Volume 86.5 fL (80.0-98.0); Mean Platelet Volume 10.9 fL (9.4-12.3); Monocytes Absolute Auto 0.5 X10*3/uL (0.1-1.2); Monocytes Percent Auto 7.8 % (2-11); Neutrophils Absolute Auto 3.9 x10*3/uL (2.0-8.3); Neutrophils Percent Auto 62.4 % (45-73); Platelet Count 250 X10*3/uL (160-400); Red Blood Count 4.65 X10*6/uL (4.20-5.50); Red Cell Distribution Width 13.7 % (11.0-16.0); White Blood Count 6.3 X10*3/uL (4.8-10.8)
[2024-05-02 10:18] LABS: Appearance Urine Clear; Color Urine Dark Yellow; Glucose Urine UA Negative (Negative); Leukocyte Esterase Urine Negative (Negative); Nitrite Urine Negative (Negative); Specific Gravity - Urine >= 1.030 (1.005-1.025); Urine Blood Negative (Negative); Urine Ketones Trace mg/dL (Negative); Urine Protein Trace mg/dL (Neg-Trace)
[2024-05-02 11:10] LABS: Alanine Aminotransferase 15 U/L (0-31); Albumin Level 4.3 g/dL (3.5-5.0); Alkaline Phosphatase 60 U/L (39-117); Anion Gap 10 (12-20); Aspartate Amino Transferase 18 U/L (5-31); Blood Urea Nitrogen 9 mg/dL (9-16); Carbon Dioxide 23 mmol/L (22-29); Chloride 108 mmol/L (96-108); Cholesterol 188 mg/dL (<200); Estimated Glomerular Filt Rate > 60; Glucose Fasting 86 mg/dL (60-99); HDL Cholesterol 65 mg/dL (>40); LDL Cholesterol Calculated 113 mg/dL (<100); Potassium 4.2 mmol/L (3.3-5.1); Sodium 137 mmol/L (135-145); TSH reflex Free T4 1.12 uIU/mL (0.32-4.0); Total Protein 7.3 g/dL (6.5-8.0); Triglycerides 54 mg/dL (<150); Vitamin D 25-OH Total 17.3 ng/mL (>30)
== END 2024-05-02 09:42 | disposition home or self-care (01) ==
LOC: HO.LAB 09:41
PROVIDERS: PCP Internal Medicine; Visit Provider Internal Medicine
DX: Z00.00 Encounter for general adult medical examination without abnormal findings (principal); E78.00 Pure hypercholesterolemia, unspecified; R30.0 Dysuria; E55.9 Vitamin D deficiency, unspecified; D64.9 Anemia, unspecified
CPT/HCPCS: 36415; 80053; 80061; 81003; 82306; 84443; 85025

== ENCOUNTER 2024-08-23 14:40 | Outpatient (REF) | payer OTHER, SELFPAY ==
[2024-08-24 11:41] LABS: Influenza A PCR NEGATIVE (Negative); Influenza B PCR NEGATIVE (Negative); Resp Syncy Virus RNA Qual PCR NEGATIVE (Negative); SARS COV2 PCR INHOUSE NEGATIVE (Negative)
== END 2024-08-23 14:41 | disposition home or self-care (01) ==
LOC: HO.LNP 14:40
PROVIDERS: PCP Internal Medicine; Visit Provider Physician Assistant
DX: J06.9 Acute upper respiratory infection, unspecified (principal)
CPT/HCPCS: 0241U; 87880

== ENCOUNTER 2024-08-23 14:40 | Outpatient (AMB) | payer OTHER, SELFPAY ==
--- NOTE | 2024-08-23 15:47 | MHC.OFFWIV ---
Intake Vital Signs 08/23/24 15:49 Weight 193 lb BP 120/86 Blood Pressure Location Lt brachial Position Sitting Pulse 89 Pulse Source Pulse Oximeter Temp 98.1 F Temp Source Oral Pulse Oximetry (%) 98 Intake Visit Reasons: EP Sore throat, cough, mucus Intake Note: Patient here for sore throat,cough and headache that has been present since last week. Patient Tobacco Use Status: Former Tobacco user Allergies No Known Allergies Allergy (Verified 08/23/24 15:51) Do you need a note to return to daycare/school/sports/work: No HPI HPI Comments History of Present Illness Details This is a 33-year-old female with a past medical history of asthma and Long Covid presenting for evaluation of sore throat, cough with mucus and had he has had patient denies having any fevers, chills, ear pain, a swallowing, chest pain or overt shortness of breath. Patient denies having any recent sick contacts. [facility] Medical History Obesity (BMI 30-39.9) Allergic rhinitis COVID-19 (~08/2019) Reactive airway disease Surgical History No pertinent past surgical history Family History Other Diabetes Heart attack Mental health problem Stroke Substance abuse Social History Housing: Other Patient Tobacco Use Status: Former Tobacco user Years Smoked: 5 years - from age 17 to 22 (smoked about 1/3 pack per day at the time) e-Cigarette/Vaping Use: Never Used service: No Current occupational status: employed Cognitive needs: No Hearing needs: No Vision needs: No Review of Systems Const All systems reviewed & are unremarkable except as noted in HPI and below Reports no additional complaints, Denies chills, Denies fatigue, Denies fever(s) and Reports headache(s) Eyes Reports no additional complaints ENT Reports no additional complaints, Denies otalgia, Denies facial pain, Reports headache(s), Denies sinus pain and Reports sore throat Card Denies chest pain and Denies dyspnea Resp Reports cough, Denies dyspnea and Reports wheezing GI Reports no additional complaints Reports no additional complaints Musc Reports no additional complaints Skin/Breast Reports system reviewed and no additional complaints, except as documented Neuro Reports no additional complaints and Reports headache(s) Psych Reports no additional complaints Endo Reports no additional complaints and Denies fatigue Jose/Lymph Reports no additional complaints Aller/Immun Reports no additional complaints and Reports wheezing Physical Exam Vital Signs: Last Vital Signs Temp 98.1 F 08/23/24 15:49 Pulse 89 08/23/24 15:49 BP 120/86 08/23/24 15:49 Pulse Ox 98 08/23/24 15:49 Patient is afebrile. She is not hypoxic. Const General: cooperative, healthy appearing, comfortable, no acute distress, well developed, alert, awake and Physically active; No acute distress Nutritional Appearance: well nourished Orientation/consciousness: patient oriented x3 Limitations: no limitations HEENT Head: Yes normal to inspection and Yes normocephalic Ears: hearing grossly normal bilaterally, external ears normal, TM's normal bilaterally and EAC's normal General nose exam: Normal external nose present Face and sinus: Yes normal facial exam Mouth: Normal oral and palatal mucosa present and moist mucous membranes Teeth and gingiva: dentition normal Throat: Yes posterior oropharynx normal (There is no edema, erythema or exudates of the posterior oropharynx) Eyes General: appearance normal, both eyes and all related structures Neck Lymphatic: no lymphadenopathy noted Resp Effort & Inspection: normal respiratory effort, able to speak in complete sentences, abnormal respiratory pattern, no audible wheezes, no cough and no nasal flaring Auscultation: clear to auscultation bilaterally and bronchial breath sounds diffuse Cardio Rate: regular rate Rhythm: regular rhythm Skin General skin exam: no rashes or lesions noted Neuro General: patient oriented x3 Psych Appearance: grossly normal Mental Status: mental status grossly normal Insight: Good insight present (Psych) Judgement: Good judgement present (Psych) Results AMB Rapid Strep AMB Rapid Strep Negative Last Edit by LUIS A Jones on 08/23/24 16:17 Results Reviewed Results Reviewed: Laboratory Last Values Strep Scn [facility] Negative 08/23/24 16:16 Assessment & Plan Assessment & Plan (1) Acute upper respiratory infection: Comment: SARS testing will be initiated and results are pending at this time. Patient is afebrile and in no acute distress. Patient will follow up with pulmonology as an outpatient. Code(s): J06.9 - Acute upper respiratory infection, unspecified Plan: Mucinex OTC with increase clear fluids daily, follow up for any chest pain, overt shortness for breath or new fevers. Orders: Orders AMB Rapid Strep Screen Today Z13.9 - Encounter for screening, unspecified SARS-CoV2/FLU/RSV Today J06.9 - Acute upper respiratory infection, unspecified Coding Level of Care Code Est Pt Level 3 (36699) Diagnoses Acute upper respiratory infection J06.9 Time Spent (min) 20
[2024-08-23 15:49] VITALS: BP 120/86; PULSE 89; TEMP 36.7; O2SAT 98
== END 2024-08-23 16:55 | disposition home or self-care (01) ==
PROVIDERS: PCP Internal Medicine; Visit Provider Physician Assistant
DX: Z13.9 Encounter for screening, unspecified (principal); J06.9 Acute upper respiratory infection, unspecified

== ENCOUNTER 2024-10-07 08:37 | Outpatient (REF) | payer OTHER, SELFPAY ==
--- NOTE | 2024-10-07 08:54 | PFT_ITS ---
Spirometry [] Lung Volumes [] Diffusion Capacity [] Methacholine Challenge [] Flow Volume Loops [] MVV [] MIP/MEP(Max inspiratory pressure/Max expiratory pressure) [] 6 Minute Walk Test [] ABG [] Interpretation [] MTDD
[2024-10-07 09:44] VITALS: PULSE 83; O2SAT 96
== END 2024-10-07 08:38 | disposition home or self-care (01) ==
LOC: HO.RESP 08:37
PROVIDERS: PCP Internal Medicine; Visit Provider Internal Medicine Pulmonary Disease
DX: J45.40 Moderate persistent asthma, uncomplicated (principal)
CPT/HCPCS: 94010; 94640; 94727; 94729

== ENCOUNTER → 2024-10-07 08:54 | Outpatient (BNV) | payer OTHER, SELFPAY | PROVIDERS: PCP Internal Medicine; Visit Provider Internal Medicine Pulmonary Disease | DX: J45.909 Unspecified asthma, uncomplicated (principal) | CPT/HCPCS: 94060; 94727; 94729 ==

== ENCOUNTER 2025-01-30 09:26 | Outpatient (REF) | payer OTHER, SELFPAY ==
[2025-01-30 10:51] LABS: MANUAL DIFF FLAG NO
[2025-01-30 11:09] LABS: Hematocrit 39.5 % (37.0-47.0); Hemoglobin 12.9 g/dl (12.0-16.0); Imm Gran Abs Auto 0.01 X10*3/uL (0.00-0.03); Imm Gran Pct Auto 0.2 % (0.0-0.4); Lymphocytes Absolute Auto 1.5 X10*3/uL (1.2-4.9); Mean Corpuscular HGB Conc 32.7 g/dl (31.0-35.0); Mean Corpuscular Hemoglobin 28.5 pg (27.0-33.0); Mean Corpuscular Volume 87.4 fL (80.0-98.0); NRBC Abs Auto 0.000 X10*3/uL (0.0-0.012); NRBC Pct Auto 0.0 /100WBC (0.0-0.2); Platelet Count 261 X10*3/uL (160-400); Red Blood Count 4.52 X10*6/uL (4.20-5.50); White Blood Count 5.0 X10*3/uL (4.8-10.8)
[2025-01-30 11:26] LABS: Appearance Urine Clear; Glucose Urine UA Negative (Negative); PH 6.5 (5.0-9.0); Specific Gravity - Urine 1.020 (1.005-1.025); UMIC TRIGGER UACC YES
[2025-01-30 12:03] LABS: Alanine Aminotransferase 14 U/L (0-31); Albumin Level 4.4 g/dL (3.5-5.0); Alkaline Phosphatase 69 U/L (39-117); Anion Gap 13 (12-20); Aspartate Amino Transferase 27 U/L (5-31); Blood Urea Nitrogen 9 mg/dL (9-16); Calcium 8.9 mg/dL (8.4-10.2); Carbon Dioxide 24 mmol/L (22-29); Chloride 110 mmol/L (96-108); Cholesterol 165 mg/dL (<200); Estimated Glomerular Filt Rate > 60; HDL Cholesterol 61 mg/dL (>40); Potassium 4.9 mmol/L (3.3-5.1); Sodium 142 mmol/L (135-145); Total Protein 7.1 g/dL (6.5-8.0); Triglycerides 50 mg/dL (<150)
[2025-01-30 12:14] LABS: Folate 7.0 ng/mL (> or = 4.0); Vitamin B12 302 pg/mL (200-900)
[2025-02-02 02:54] LABS: TS Negative Control Passed; TS Panel A 0; TS Panel B 0; TS Positive Control Passed; TSpotTB Negative (Negative)
== END 2025-01-30 09:27 | disposition home or self-care (01) ==
LOC: HO.LAB 09:26
PROVIDERS: PCP Internal Medicine; Visit Provider Internal Medicine
DX: Z00.00 Encounter for general adult medical examination without abnormal findings (principal); E78.00 Pure hypercholesterolemia, unspecified; R30.0 Dysuria; R22.1 Localized swelling, mass and lump, neck; D64.9 Anemia, unspecified; E55.9 Vitamin D deficiency, unspecified; E53.8 Deficiency of other specified B group vitamins; U09.9 Post COVID-19 condition, unspecified; R59.0 Localized enlarged lymph nodes; R10.30 Lower abdominal pain, unspecified; J45.909 Unspecified asthma, uncomplicated; E66.9 Obesity, unspecified; Z68.30 Body mass index [BMI] 30.0-30.9, adult
CPT/HCPCS: 36415; 80053; 80061; 81001; 82306; 82607; 82746; 83615; 84443; 85025; 86481; 86611; 96127

== ENCOUNTER 2025-01-30 09:26 | Outpatient (AMB) | payer OTHER, SELFPAY ==
[2025-01-30 09:35] VITALS: BP 122/80; PULSE 67; O2SAT 99
--- NOTE | 2025-01-30 09:35 | MHC.PC.OV ---
Vital Signs 01/30/25 09:35 Height 5 ft 4.5 in Weight 177 lb 8 oz BMI 30.0 BP 122/80 Blood Pressure Location Lt brachial Position Sitting Pulse 67 Pulse Source Pulse Oximeter Pulse Oximetry (%) 99 Oxygen Delivery Method Room Air Intake Visit Reasons: Annual Exam Relief Captain Required: No Accompanied by: Self / Same As Patient Allergies No Known Allergies Allergy (Verified 01/30/25 09:59) Medication List - Last Reconciled 01/30/25 by Leonel Shipman MD albuterol sulfate 90 mcg/actuation 2 puffs inhalation Q6H PRN budesonide 90 mcg/actuation (Pulmicort Flexhaler) 1 inh inhalation BID cetirizine (Zyrtec) 10 mg PO DAILY PRN fluticasone furoate-vilanterol 100-25 mcg/dose (Breo Ellipta) 1 inh inhalation DAILY fluticasone propionate 50 mcg/actuation 1 spray intranasal DAILY Tobacco use date assessed: 01/30/25 Dental Screening Dental Screen Date: 01/30/25 Did you have a dental visit in the last 12 months?: Yes Did you have a dental problem in the last 6 months where you did not have access to dental care?: No Was dental information given to patient?: Patient has dentist HPI Annual Exam HPI Details Patient comes in today for her annual physical examination States that she feels okay She denies any headaches or dizziness Denies any chest pains, no SOB No nausea/vomiting; reports (+) on and off cramping pains, mostly over the lower abdomen No change in bowel habits noted SHe denies any acute urinary symptoms She had normal chest x-rays done at [facility] in May 2024 and normal PFTs done at [facility] in September 2024 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 to schedule her yearly gynecology exam and pap smear [facility] Medical History Obesity (BMI 30-39.9) Allergic rhinitis COVID-19 (~08/2019) Reactive airway disease Surgical History No pertinent past surgical history Family History Other Diabetes Heart attack Mental health problem Stroke Substance abuse Social History Housing: Other Patient Tobacco Use Status: Former Tobacco user Years Smoked: 5 years - from age 17 to 22 (smoked about 1/3 pack per day at the time) e-Cigarette/Vaping Use: Never Used service: No Current occupational status: employed Cognitive needs: No Hearing needs: No Vision needs: No Questionnaire PHQ-9 Over the last 2 weeks, how often have you been bothered by any of the following problems? 1. Little interest or pleasure in doing things: not at all 2. Feeling down, depressed, or hopeless: not at all 3. Trouble falling or staying asleep, or sleeping too much: not at all 4. Feeling tired or having little energy: more than half the days 5. Poor appetite or overeating: not at all 6. Feeling bad about yourself - or that you are a failure or have let yourself or your family down: not at all 7. Trouble concentrating on things, such as reading the newspaper or watching television: several days 8. Moving or speaking so slowly that other people could have noticed. Or the opposite - being so fidgety or restless that you have been moving around a lot more than usual: not at all 9. Thoughts that you would be better off or of hurting yourself in some way: not at all Total score: 3 Depression Screening Interpretation: Positive Depression Screening Follow-up: Follow-up Visit Requested Depression Screening Done: Yes 86267 - PHQ-9 Billing: Yes Source: Developed by Drs. Gaston Henson, Edilma Zhou, Carlos Chavez and colleagues, with an educational jacob from [employer]. Thrive Questionnaire Date Thrive assessed: 01/30/25 I am a: Patient What is your living situation today?: I have a steady place to live Within the past 12 months, did the food you bought not last and you didn't have the money to get more?: Sometimes True Within the past 12 months, did you worry whether your food would run out before you got money to buy more?: Never true Do you have trouble paying for medicines?: No Do you have trouble getting transportation to medical appointments?: No Do you have trouble paying your heating and electricity bill?: No Do you have trouble taking care of your child, family member or friend?: No Do you have trouble with day-to-day activities such as bathing, preparing meals, shopping, managing finances, etc.?: No Are you currently unemployed and looking for a job?: No Are you interested in more education?: No Please select the resources that you would like help with: None Currently or been in a relationship where the following occur: No concerns reported THRIVE Score: 1 AUDIT C Alcohol Use Questionnaire (AUDIT-C) 1. How often do you have a drink containing alcohol?: 2-4 times a month 2. How many drinks containing alcohol do you have on a typical day when you are drinking?: 1 or 2 3. How often do you have six or more drinks on one occasion?: Never Total Score: 2 Score Reviewed/Action Taken: Yes LOPEZ-7 AMB Questionnaire LOPEZ-7 Date LOPEZ - 7 assessed: 01/30/25 Feeling nervous, anxious, or on edge: 1 = Several days Not being able to stop or control worryin = Not at all Worrying too much about different things: 0 = Not at all Trouble relaxin = Not at all Being so restless that it is hard to sit still: 0 = Not at all Becoming easily annoyed or irritable: 0 = Not at all Feeling afraid as if something awful might happen: 0 = Not at all Total LOPEZ-7 score (0-4 normal; 5-9 mild; 10-14 moderate; 15-21 severe): 1 Source: Developed by Drs. Gaston Henson, Edilma Zhou, Carlos Chavez and colleagues, with an educational jacob from [employer]. Review of Systems Const Denies chills, Denies fatigue, Denies fever(s), Denies headache(s) and Denies malaise Eyes Denies blurry vision, Denies change in vision, Denies irritation and Denies itchy eyes ENT Denies dysphagia, Denies dizziness, Denies otalgia, Denies headache(s), Denies nasal congestion, Denies neck pain, Denies odynophagia, Denies sinus pain and Denies sore throat Card Denies chest pain, Denies rapid heart rate, Denies irregular heart rhythm, Denies palpitations and Denies dyspnea Resp Denies chest congestion, Denies cough, Denies dyspnea and Denies wheezing GI Reports abdominal pain (cramping pain over the lower abdomen, on and off), Denies bloating, Denies constipation, Denies dysphagia, Denies heartburn, Denies diarrhea, Denies nausea, Denies odynophagia and Denies vomiting Denies hematuria, Denies urinary frequency, Denies dysuria, Denies urinary incontinence and Denies urinary urgency Musc Denies back pain, Denies arthralgias, Denies joint swelling, Denies muscle weakness and Denies neck pain Skin/Breast Denies breast pain, Denies breast mass, Denies change in pigmentation, Denies lesions, Denies rash and Denies unusual bruising Neuro Denies dizziness, Denies headache(s) and Denies paresthesias Psych Denies anxiety and Denies depression Endo Denies fatigue and Denies palpitations Jose/Lymph Denies easy bruising Aller/Immun Denies itchy eyes and Denies wheezing Physical exam (Primary Care) Vital Signs: Last Vital Signs Pulse 67 01/30/25 09:35 BP 122/80 01/30/25 09:35 Pulse Ox 99 01/30/25 09:35 Oxygen Delivery Method Room Air 01/30/25 09:35 BMI result Body Mass Index 30.0 Tobacco/Smoking Status: Tobacco use Status Tobacco use date assessed 01/30/25 01/30/25 09:39 Patient Tobacco Use Status Former Tobacco user 01/30/25 09:39 e-Cigarette/Vaping Use Never Used 01/30/25 09:39 PHQ-9: PHQ-9 Score PHQ-9: Total score 3 01/30/25 10:12 Depression Screening Interpretation: Positive Depression Screening Follow-up: Follow-up Visit Requested Thrive Assessment: Date of Thrive Assessment Date Thrive assessed 01/30/25 01/30/25 09:39 Currently or been in a relationship where the following occur: No concerns reported Const General: no acute distress, alert and awake Orientation/consciousness: patient oriented x3 HENMT Head: Yes normocephalic and Yes atraumatic Ears: external ears normal, TM's normal bilaterally and EAC's normal General nose exam: No nasal discharge present Face and sinus: Yes normal facial exam and Yes sinuses nontender Teeth and gingiva: dentition normal Throat: Yes posterior oropharynx normal and Yes tonsils normal (no TP congestion) Eyes Eyelids: Yes eyelids normal Conjunctivae: conjunctivae normal Pupils: Equal, round and reactive pupils present EOM: EOMs intact bilaterally Neck Other: (+) small, non-tender palpable nodule over the right supraclavicular area Neck: Yes supple Thyroid: Thyroid normal Resp Auscultation: clear to auscultation bilaterally, no rales and no wheezes Cardio Rate: regular rate Rhythm: regular rhythm Heart sounds: no murmurs GI Palpation (GI): Soft to palpation, Tenderness to palpation present (GI) (mild, over the lower abdomen), no guarding, not rigid, No hepatosplenomegaly present and No Rebound tenderness present Auscultation: normal bowel sounds General: Yes no CVA tenderness Back/Spine/Pelvis Back: no CVA tenderness Thoracic/Lumbar Spine: thoracic and lumbar spine normal to inspection Skin Lesions: no lesions Rashes: no rashes Neuro General: patient oriented x3, moves all extremities, no focal motor deficits and CN's II-XI intact bilaterally Cranial nerves: Yes Equal, round and reactive pupils present Cognition (Neuro): normal cognition Gait exam (Neuro): Normal gait present Extrem General: Yes no clubbing, cyanosis or edema Coding Level of Care Code Est Pt Prev Care 18-39y(58455) Diagnoses Annual physical exam Z00.00 Long COVID U09.9 Supraclavicular lymphadenopathy R59.0 Lower abdominal pain R10.30 Reactive airway disease without complication, unspecified asthma severity, unspecified whether persistent J45.909 Asthma severity: unspecified severity Asthma persistence: unspecified Asthma complication type: uncomplicated Allergic rhinitis, unspecified seasonality, unspecified trigger J30.9 Allergic rhinitis trigger: unspecified Allergic rhinitis seasonality: unspecified Obesity (BMI 30-39.9) E66.9 Additional Codes PHQ-9 - 67565 - PHQ-9 Billing: Yes ([id number]) Assessment & Plan Assessment & Plan (1) Annual physical exam: Code(s): Z00.00 - Encounter for general adult medical examination without abnormal findings Category: Medical Plan: Check labs KIRILL to complete her annual exam today 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 to schedule her yearly gynecology exam and pap smear KIRILL She has no other annual screening exams due at this time (2) Long COVID: Code(s): U09.9 - Post COVID-19 condition, unspecified Category: Medical Plan: She initially tested positive for COVID back in August 2019 and has been experiencing frequent/recurrent symptoms of long-COVID since States that her symptoms have been mostly stable but flare up quickly when she has to present to work in-person She is currently still working on a hybrid schedule and works at least half of the time remotely from home, which she feels helps her a lot with her struggles with her long-COVID symptoms (3) Supraclavicular lymphadenopathy: Comment: Left side Code(s): R59.0 - Localized enlarged lymph nodes Category: Medical Plan: Soft tissue US done on 04/30/2023, in 10/2022 and in 12/2022 have all revealed (+) borderline enlarged lymph nodes with NO other abnormalities noted All of her additional labs, including tests for inflammatory markers, serum LDH and tests for Bartonella (Cat's scratch disease), have come back normal or negative Have discussed with patient that this is likely reactive lymphadenopathy, possibly related to her long-COVID symptoms, and no specific intervention is indicated at this time unless anything changes abruptly Will send her for some repeat labs, including LDH and T-spot, for further evaluation (4) Lower abdominal pain: Code(s): R10.30 - Lower abdominal pain, unspecified Category: Medical Plan: Will send patient for abdominal and pelvic US for further evaluation (5) Reactive airway disease: Comment: symptoms started after she tested positive for COVID in August 2019 Code(s): J45.909 - Unspecified asthma, uncomplicated Category: Medical Qualifiers: Asthma severity: unspecified severity Asthma persistence: unspecified Asthma complication type: uncomplicated Qualified Code(s): J45.909 - Unspecified asthma, uncomplicated Plan: This is most likely also related to her long-COVID symptoms Patient has had extensive work ups done by her previous PCP and by pulmonary at [facility] over the past 2 to 3 years, including chest CT, x-rays and PFTs, and all of her tests so far have come back negative/normal Continue Breo Ellipta 100-25 mcg 1 inhalation QD and Albuterol HFA 2 inhalations Q 6 hours PRN although she states that pulmonary is considering stepping her down from Breo Ellipta to Pulmicort soon Follow up with pulmonary medicine at [facility] as scheduled (6) Allergic rhinitis: Code(s): J30.9 - Allergic rhinitis, unspecified Category: Medical Qualifiers: Allergic rhinitis trigger: unspecified Allergic rhinitis seasonality: unspecified Qualified Code(s): J30.9 - Allergic rhinitis, unspecified Plan: Continue Cetirizine 10 mg QD PRN and Fluticasone 50 mcg nasal spray QD PRN She continues to receive maintenance immunotherapy/allergy injections from her senior marketing specialist monthly (7) Obesity (BMI 30-39.9): Code(s): E66.9 - Obesity, unspecified Category: Medical Plan: Reinforced diet/exercise as tolerated/lose weight Plan To return in 1 year for her next annual physical examination Orders: Orders Lipid Panel 01/30/25 E78.00 - Pure hypercholesterolemia, unspecified, Z00.00 - Encounter for general adult medical examination without abnormal findings UA CC w/rflx Micro + Cult 01/30/25 R30.0 - Dysuria, Z00.00 - Encounter for general adult medical examination without abnormal findings Cat Scratch Titer 01/30/25 R22.1 - Localized swelling, mass and lump, neck Complete Blood Count Auto Diff 01/30/25 D64.9 - Anemia, unspecified, Z00.00 - Encounter for general adult medical examination without abnormal findings Comprehensive Barnard. Panel Fast 01/30/25 E78.00 - Pure hypercholesterolemia, unspecified, Z00.00 - Encounter for general adult medical examination without abnormal findings TSH reflex Free T4 01/30/25 E78.00 - Pure hypercholesterolemia, unspecified, Z00.00 - Encounter for general adult medical examination without abnormal findings Vitamin D 25-OH Total 01/30/25 E55.9 - Vitamin D deficiency, unspecified, Z00.00 - Encounter for general adult medical examination without abnormal findings T Spot TB 01/30/25 R22.1 - Localized swelling, mass and lump, neck Lactate Dehydrogenase 01/30/25 R22.1 - Localized swelling, mass and lump, neck Vitamin B12 and Folate 01/30/25 E53.8 - Deficiency of other specified B group vitamins, R22.1 - Localized swelling, mass and lump, neck US abdomen complete 01/30/25 R10.9 - Unspecified abdominal pain, R10.30 - Lower abdominal pain, unspecified US pelvic complete 01/30/25 R10.30 - Lower abdominal pain, unspecified
--- OUTSIDE RECORDS SUMMARY | 2025-01-30 10:38 | XMS_ITS | Encounter Summary ---
Author Organization [facility] Address [address] [place] [address] [phone] Phone Care Team Providers Care Facilities Maintenance Supervisor Name Role Phone Rory Mcconnell MD Unavailable [phone] Iggy Kent MD Unavailable [phone] Leonel Shipman MD Primary Care Provider [phone] Encounter Details Date Type Department Care Team (Late st Contact Info) Description 10/27/2024 Ancillary Orders [facility], X-Ray - [address] [address] Leonel Shipman MD [address] [place] [address] Alfonzo Ashely [place] [address] Localized swelling, mass and lump, neck (Primary Dx) Social History Tobacco Use Types Packs/Day Years Used Date Smoking Tobacco: Former Cigarettes 0.3 8.8 2 008 - 02/24/2016 Passive Smoke Exposure: Never Smokeless Tobacco: Never Alcohol Use Standard Drinks/Week Comments Yes 1 (1 standard drink = 0.6 oz pur e alcohol) Education Answer Date Recorded Are you interested in more education? Not on herberth e 09/19/2022 Are you concerned about learning? Not on file 09/19/2022 No 09/19/2022 No 09/19/2022 Digital Access Answer Date Recorded No 10/15/2022 No 10/15/2022 Reliable internet access at home? Not on file 10/15/2022 Device with a working camera? 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 Not on file Not on file Not on file documented as of this encounter Plan of Treatment Upcoming Encounters Date Type Department Care Team (Late st Contact Info) Description 02/07/2025 8:30 AM EDT Office Visit [facility] [address], [address] [place] [address] Sofie Hansen PA-C [address] [place] [address] 03/22/2025 6:00 PM EDT Appointment [facility] [address] [place] [address] Mar Deras MD [address] [place] [phone] 03/30/2025 9:00 AM EST Nurse Only [facility] [address] [place] [address] Delvin Gross MD [address] [place] [phone] 06/15/2025 8:20 AM EST Office Visit [facility] [address] [place] [address] Mar Deras MD [address] [place] [phone] 07/23/2026 3:00 PM EST Office Visit [facility] [address] [place] [address] Cecilia Conn [address] [place] [address], [address] [place] [address] [email or web address] Scheduled Orders Name Type Priority Associated Diagnoses Orde r Schedule XR Neck Soft Tissue Imaging Routine Localized swelling, mass and lump, neck 1 Occurrences starting 10/27/2024 until 01/27/2025 documented as of this encounter Visit Diagnoses Diagnosis Localized swelling, mass and lump, neck- Primary Swelling, mass, or lump in head and neck documented in this encounter Additional Health Concerns Assessment Noted Time PHQ-9 Depression Total Score: 9 05/20/20 22 1:33 PM EST PHQ-2 Depression Total Score: 0 05/20/20 22 1:33 PM EST documented as of this encounter Care Teams Facilities Maintenance Supervisor Relationship Specialty Start Date End Date Leonel Shipman MD [address] [place] [address] PCP - General Internal Medicine 12/23/22 Rory Mcconnell MD [address] [place] [id number] [email or web address] Historical LMR Provider 03/12/17 Iggy Kent MD [address] [place] [address] [address] [place] [address] Historical LMR Provider 03/12/17 documented as of this encounter Additional Source Comments The information contained in this document represents components of the legal health record. It is not the complete legal health record.[facility]
--- OUTSIDE RECORDS SUMMARY | 2025-01-30 10:38 | XMS_ITS | Encounter Summary ---
Author Organization [facility] Address [address] [place] [address] Phone Care Team Providers Care Deburr Operator Name Role Phone Rory Mcconnell MD Unavailable [phone] Iggy Kent MD Unavailable [phone] Leonel Shipman MD Primary Care Provider [phone] Reason for Visit * Reason Onset Date Comments r/s nurse visit 12/13/2024 Encounter Details Date Type Department Care Team (Late st Contact Info) Description 12/13/2024 Telephone [facility] Pulmonary, Allergy and Critical Care Medicine [address] [place], [place] [id number] [email or web address] r/s nurse visit Social History Tobacco Use Types Packs/Day Years [...] on file documented as of this encounter Progress Notes * Alia Hackett - 12/13/2024 11:24 AM EDT Pt called to r/s nurse visit. Please contact and advise. Central Support Counter Professional (Please do not reply to this user; this inbox is not monitored.) Thank you. documented in this encounter Plan of Treatment Upcoming Encounters Date Type Department Care Team (Late st Contact Info) Description 02/07/2025 8:30 AM EDT Office Visit [facility] [address] [place] [address] [facility] [place] [address] Sofie Hansen PA-C [address] [place] [address] [email or web address] 03/22/2025 6:00 PM EDT Appointment [facility] [address] [place] [address] Mar Deras MD [address] [place] [phone] 03/30/2025 9:00 AM EST Nurse Only [facility] [address] [place] [address] Delvin Gross MD [address] [place] [phone] 06/15/2025 8:20 AM EST Office Visit [facility] [address] [place] [address] Mar Deras MD [address] [place] [phone] 07/23/2026 3:00 PM EST Office Visit [facility] [address] [place] [address] Cecilia Conn [address] [facility], [address] [place] [address] [email or web address] documented as of this encounter Visit Diagnoses Not on filedocumented in this encounter Additional Health Concerns Assessment Noted Time PHQ-9 Depression Total Score: 9 05/20/20 22 1:33 PM EST PHQ-2 Depression Total Score: 0 05/20/20 22 1:33 PM EST documented as of this encounter Care Teams Deburr Operator Relationship Specialty Start Date End Date Leonel Shipman MD [address] [place] [address] PCP - General Internal Medicine 12/23/22 Rory Mcconnell MD [address] [place] [address] [email or web address] Historical LMR Provider 03/12/17 Iggy Kent MD [address] [facility], [address] [place] [address] Historical LMR Provider 03/12/17 documented as of this encounter Additional Source Comments The information contained in this document represents components of the legal health record. It is not the complete legal health record.[facility]
--- OUTSIDE RECORDS SUMMARY | 2025-01-30 10:38 | XMS_ITS | Clinical Summary ---
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 Name Role Phone Rory Mcconnell MD Unavailable [phone] Iggy Kent MD Unavailable [phone] Leonel Shipman MD Primary Care Provider [phone] Allergies Active Allergy Reactions Criticality Noted Date Comments Aller Ext-Malian Cockroach 022 Cat Dander 12/26/2021 Dog Dander 12/26/2021 Grass Pollen 12/26/2021 House Dust Mite 12/26/2021 Mold 12/26/2021 Mouse Epithelium Allergenic Extract 12/26/2021 Other 12/26/2021 Rabbit 12/26/2021 Ragweed 12/26/2021 Tree And Shrub Pollen 12/26/2021 Rives Pollen-Armenian Plantain 022 Medications cetirizine (ZYRTEC) 10 MG tablet Take 10 mg by mouth as needed. Active fluticasone propionate (FLONASE) 50 mcg/actuation nasal spray 2 sprays by Nasal route as needed. Active albuterol 90 mcg/actuation inhaler TAKE 2 PUFFS BY MOUTH EVERY 6 HOURS NEEDED 18 g 3 3 Active tretinoin (RETIN-A) 0.025 % cream as needed. 4 Active metroNIDAZOLE (METROGEL) 0.75 % (37.5mg/5 gram) vaginal gel Place vaginally every evening. 70 g 5 Active Additional Information Patient not taking.Reported on 11/02/2024 PULMICORT FLEXHALER 90 mcg/actuation inhalerIndicatio ns:Moderate persistent asthma without complication TAKE 1 PUFF BY MOUTH TWICE A DAY 3 each 4 5 Active Additional Information Patient not taking.Reported on 11/02/2024 fluticasone furoate-vilanter oL (BREO ELLIPTA) 100-25 mcg/dose inhaler Inhale 1 puff into the lungs daily. 60 each 5 5 Active Additional Information Patient taking differently:1 puff Inhalation Daily,Has a few left of 200 just ran out of 100, Reported on 11/02/2024 Active Problems Problem Noted Date Diagnosed Date Dysmenorrhea 12/30/2023 Assessment & Plan (01/02/2024 12:34 AM EDT): Feeling better off the Nuvaring Managing with Ibuprofen Reviewed to contact office if symptoms are not manageable Long COVID 04/24/2022 Assessment & Plan (11/04/2024 3:26 PM EDT): COVID-19 with long COVID symptoms COVID-19 with subsequent respiratory complications, including lymphadenopathy and neck pain. Consideration of Pfizer vaccine for potential improvement of long COVID symptoms based on anecdotal evidence. - Consider Pfizer COVID-19 vaccine for potential improvement of long COVID symptoms. Assessment & Plan (06/17/2024 9:47 PM EST): Pt's symptoms did worsen after her bout of COVID in December 2023 as well as viral illness in April 2024. She appears otherwise stable and is doing well with her accommodations. Reviewed the continued unknown pathophysiology of long COVID and underlying symptom management. As pt will likely continue to require medical accommodations, we will continue annual follow-up. Assessment & Plan (06/05/2023 8:57 AM EST): Discussed that pt's symptoms may slightly worsen after her recent bout of COVID. She appears otherwise stable and is doing well with her accommodations. Discussed that long COVID is an evolving disease process and that we don't understand the underlying pathophysiology completely as of yet. This means that we are treating lasting symptoms and conditions which may be exacerbated by long-COVID. As more information becomes available, we will contact patients to return to ID clinic. As she will likely continue to require medical accommodations she may follow-up on an annual basis Assessment & Plan (11/21/2022 8:11 AM EDT): Pt seems to have hit a plateau in her symptom improvement. Discussed that this is common. She feels she is coping well. FMLA paperwork filled out to continue her work accomodation for the next year. Encouraged to book previously ordered sleep study. Consider acupuncture. Discussed that long COVID is an evolving disease process and that we don't understand the underlying pathophysiology completely as of yet. This means that we are treating lasting symptoms and conditions which may be exacerbated by long-COVID. As more information becomes available, we will contact patients to return to ID clinic. Current recommendation is to follow-up with ID as needed. If she continues to require work accomodation, I will see her on an annual basis. Assessment & Plan (05/20/2022 3:59 PM EST): Timing of fatigue as well as onset of asthma symptoms following initial COVID diagnosis are consistent with long COVID. Discussed that understanding of long COVID is an evolving process and with our current information we will manage/treat underlying symptoms. Given non-restful sleep, pt would likely benefit from a sleep study. Based on her PHQ-9 and LOPEZ-7 testing, I do not think she needs a further neuropsychiatric work-up at this time. Referred to SMART program at [facility] for resiliency training. 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 She declines referral for physical and occupational therapy at this time due to her schedule. She would like to revisit this in the summer. Discussed potential alternative treatments such as acupuncture. Will follow-up in 6 months. Return sooner as needed. Assessment & Plan (04/24/2022 1:51 PM EST): Patient unable to see the [facility] long COVID specialist due to her insurance reasons. I understand that Lili Su is an ID HARVESTING CONTRACTOR who has been trained on this. I will send a referral for her to see this person. Shortness of breath 12/26/2021 Assessment & Plan (06/10/2024 1:13 PM EST): [id number] Respiratory Symptoms Persistent respiratory symptoms following COVID-19 infection in December, including increased asthma symptoms and a productive cough. Concern for potential inflammatory processes or scarring in the lungs secondary to COVID-19. Discussed the role of a chest x-ray in evaluating these conditions. - Order chest x-ray to evaluate for potential inflammatory processes or scarring Orders: XR Chest; Future Assessment & Plan (12/04/2023 10:17 AM EDT): She actually exercises on a regular basis and does not have any cardiorespiratory limitation Assessment & Plan (12/26/2021 10:16 AM EDT): Will check CT chest to evaluate the parenchyma for scarring and inflammation post-covid. Perhaps she has BOOP or similar inflammatory lung disease. Palpitations 12/26/2021 Assessment & Plan (12/04/2023 10:17 AM EDT): No longer present we do not need to give her any medications for this is had a negative cardiac workup in the past Assessment & Plan (11/21/2022 8:10 AM EDT): Symptom intensity has improved. She had a reassuring visit with cardiology Assessment & Plan (05/20/2022 3:55 PM EST): Holter monitor ordered Assessment & Plan (12/26/2021 10:17 AM EDT): Will check echo to rule out covid-related cardiomyopathy Moderate persistent asthma without complication 12/26/2021 Assessment & Plan (11/04/2024 3:26 PM EDT): Moderate persistent asthma with exacerbations [id number] infection. Despite normal pulmonary function test results, symptoms of uncontrolled asthma persist, including occasional cough, phlegm, and exertional dyspnea. Recent weight loss and dietary changes may contribute to improved control. Concerns about Breo side effects, such as skin bruising, were discussed. Pulmicort is recommended as needed for exacerbations to prevent airway inflammation and potential scarring. She was informed about the risk of airway inflammation leading to scarring if not controlled and the importance of using Pulmicort to prevent this outcome. - Prescribe Pulmicort for use during exacerbations, for three weeks at a time. - Continue Breo at 100 mcg dose. - Use rescue inhaler as needed. - Order peak flow meter for home monitoring. - Schedule pulmonary function test with exhaled nitric oxide measurement in one year. - Arrange appointment with nurse in 6-8 weeks for asthma action plan development. Orders: Peak flow meter Assessment & Plan (06/10/2024 1:13 PM EST): Kikis asthma control has worsened from a 2 to a 5 on a 10-point scale since jess COVID-19 in December. She has been using Breo without achieving stabilization. Recent exacerbation includes a productive cough following a cold and sinus infection in April, now improved but with clear to white sputum. Discussed using Pulmicort in combination with Breo for three weeks. Prednisone was considered if symptoms do not improve, with potential side effects including insomnia, hyperactivity, hyperglycemia, and weight gain. Emphasized a low-carb diet while on prednisone. Rola prefers to start with Pulmicort and will notify via portal if prednisone is needed. - Order chest x-ray - Prescribe Pulmicort twice daily for three weeks - Continue Breo - Consider prednisone 20 mg for five days if symptoms do not improve with Pulmicort - Send portal message if prednisone is used Orders: predniSONE (DELTASONE) 20 MG tablet; Take 1 tablet (20 mg total) by mouth daily for 5 days. Assessment & Plan (12/04/2023 10:17 AM EDT): Well-controlled with inhalers Assessment & Plan (07/20/2023 5:30 PM EST): We will try to de-escalate her to Pulmicort. Will wait until she is back from her trip before doing that. If her symptoms progress we will go back to the Breo. Assessment & Plan (07/24/2022 3:35 PM EST): Would continue with the Breo Ellipta. Could de-escalate to Pulmicort or Asmanex at her next visit. Assessment & Plan (04/24/2022 1:52 PM EST): Continue with the Breo. Assessment & Plan (12/26/2021 10:17 AM EDT): Does have asthma based on PFTs and some symptoms. Though I'm not sure it is the whole picture. Will switch to Breo once a day. Use albuterol more before exertion. Vocal cord dysfunction 12/26/2021 Assessment & Plan (07/20/2023 5:30 PM EST): Plan for an NPL at our next visit. Will plan that in October. Assessment & Plan (07/24/2022 3:36 PM EST): She does have a sort of wheeze in the upper airway that she can force but the repeat pulmonary function test does not show any flattening of the inspiratory loop. Will defer nasopharyngeal laryngoscopy at this time. There is any change in her symptoms we we will revisit. Assessment & Plan (04/24/2022 1:52 PM EST): I do think there may be an element of vocal cord dysfunction looking at the pulmonary function test and on exam today. Recommend repeat pulmonary function tests in May which we 1 year from the previous. If she does have continued flattening of the inspiratory limb we will plan for a nasopharyngeal laryngoscopy. Assessment & Plan (12/26/2021 10:15 AM EDT): Question of vocal cord dysfunction based on PFTs. Also with upper airway wheeze. May need NPL or bronch to evaluate at some point. Resolved Problems Problem Noted Date Diagnosed Date Resolved Date Dyspareunia in female 12/24/20222023 Encounters Date Type Department Care Team Description 12/13/2024 Telephone [facility] [address] [place] [id number] Mar Deras MD 12/13/2024 Telephone [facility] [address] [place] [address] Alia Hackett r/s nurse visit 11/02/2024 4:39 PM EDT - 11/02/2024 11:59 PM EDT Hospital Encounter [facility] [address] [place] [address] Leonel Shipman MD Discharge Disposition: Home or Self Care 11/02/2024 3:40 PM EDT Office Visit [facility] [address] [place] [address] Mar Deras MD Moderate persistent asthma without complication (Primary Dx); Long COVID 10/31/2024 Transcribe Orders Virtual Department [address] [place] [address] Leonel Shipman MD Localized swelling, mass and lump, neck (Primary Dx) from Last 3 Months Immunizations Immunization Administration Dates Next Due COVID-19 (Pre-03/16) Moderna Vaccine, mRNA, PF 0 07/20/2024,07/05/2020 Hepatitis B 10/23/1994 Influenza Quadrivalent Preservative Free IM 12/0 11/2021,03/22/2020 Influenza Trivalent MDCK Preservative Free IM Polio, Unspecified Formulation 10/23/1994 Td (adult) 5 Lf Tetanus Toxoid, PF, Adsorbed 12/2017 Family History * Patient is adopted Medical History Relation Comments No Known Problems Father CV disease Maternal Grandmother Diabetes mellitus Maternal Grandmother Hypertension Maternal Grandmother Stroke Maternal Grandmother No Known Problems Mother Sleep disorder Neg Hx Relation Status Comments Father Alive Maternal Grandmother Mother Alive Social History Tobacco Use Types Packs/Day Years Used Date Smoking Tobacco: Former Cigarettes 0.3 8.8 2 008 - 02/24/2016 Passive Smoke Exposure: Never Smokeless Tobacco: Never Tobacco Cessation:Counseling Given: Not Answered Alcohol Use Standard Drinks/Week Comments Yes 1 [...] file Not on file Not on file Last Filed Vital Signs Vital Sign Reading Time Taken Comments Blood Pressure 113/75 11/02/2024 3:48 PM EDT AUTOMATED MACHINE READING Pulse 80 11/02/2024 3:48 PM EDT Temperature 36.2 C (97.2 F) 11/02/2024 3:48 PM EDT Respiratory Rate 18 06/09/2020 7:42 PM EST Oxygen Saturation 98% 11/02/2024 3:4 8 PM EDT Inhaled Oxygen Concentration - - Weight 83.6 kg (184 lb 3.2 oz) 11/02/2024 3:48 PM EDT Height 163.8 cm (5' 4.49 ) 11/02/2024 3 :48 PM EDT Body Mass Index 31.14 11/02/2024 3:48 PM EDT Plan of Treatment Upcoming Encounters Date Type Department Care Team (Late st Contact Info) Description 02/07/2025 8:30 AM EDT Office Visit [facility] [address] [facility] 3rd Floor, [address] [place] [address] Sofie Hansen PA-C [address] [place] [address] 03/22/2025 6:00 PM EDT Appointment [facility] [address] [place] [address] Mar Deras MD [address] [facility] [address] [place] [address] 03/30/2025 9:00 AM EST Nurse Only [facility] [address] [place] [address] Delvin Gross MD [address] [address] 06/15/2025 8:20 AM EST Office Visit [facility] [address] [place] [address] Mar Deras MD [address] [place] [address] 07/23/2026 3:00 PM EST Office Visit [facility] [address] Cecilia Conn [address] [place] [address], [address] [place] [address] [email or web address] Health Maintenance Due Date Last Done Comments HEPATITIS C SCREENING 2008 HIV ONE-TIME SCREENING (18-6 5 YEARS) 2008 PNEUMOCOCCAL VACCINES (0-49 years) (1 of 2 - PCV) 2009 DEPRESSION SCREENING 05/20/2023 05/20/2022, 05/20/2022 INFLUENZA VACCINE (#1) 2024 , 04/30/2022, 03/22/2020 COVID-19 VACCINE (3 - 2024-2 6 season) 2025 07/20/2024, 07/05/2020 PAP SMEAR 07/23/2025 07/23/2020, 11/20/2016, 11/13/2016 Adult Td,Tdap Booster 07/31/2027 07/30/2017 SMOKING STATUS SCREENING (Every 5 Years) 11/02/2029 11/02/2024 HEPATITIS A VACCINES Aged Out No long er eligible based on patient's age to complete this topic HIB VACCINES Aged Out No longer eligi ble based on patient's age to complete this topic MENINGOCOCCAL VACCINES (ACWY) Aged Out No longer eligible based on patient's age to complete this topic MENINGOCOCCAL VACCINES (B) Aged Out N o longer eligible based on patient's age to complete this topic Medical Devices Not on file Procedures Procedure Name Priority Date/Time Associated Diagnosis Comments US SOFT TISSUES OF HEAD AND NECK (NON-THYROID) Routine 11/02/2024 4:59 PM EDT Localized swelling, mass and lump, neck PAP TEST Routine 07/23/2020 12:00 AM EST from Last 3 Months or Most Recently Relevant to Health Maintenance Results * US Soft Tissues of Head and Neck (Non-Thyroid) (11/02/2024 4:59 PM EDT) Anatomical Region Laterality Modality Neck, Head Ultrasound 11/02/2024 5:09 PM EDT Impressions 11/02/2024 5:12 PM EDT 1. Mildly enlarged lymph node in the low lateral posterior neck is again noted. This demonstrates a mildly thickened cortex and is similar to prior studies. 2. Correlate with physical exam and history. If this is clinically suspicious based on physical exam, biopsy could be considered for definitive characterization. Surgical consultation could also be considered for further management. 3. No suspicious sonographic abnormality in the left supraclavicular region. Correlate with physical exam. Narrative 11/02/2024 5:12 PM EDT US SOFT TISSUES OF HEAD AND NECK (NON-THYROID) Referring clinician's provided indication for this examination in Epic: Mass/lump on face/head; Other Indication (Please use free text); Localized swelling, mass and lump, neck COMPARISON: 12/23/2022 FINDINGS: Focused sonographic evaluation in the area of palpable abnormality as demonstrated by the patient in the low lateral posterior neck. Subcutaneous hypoechoic oval-shaped nodule measures 16 x 6 x 6 mm with echogenic hilum, likely a lymph node with thickened cortex. On the prior study, this measured 13 x 5 x 6 mm. On 10/23/2022, this measured 15 x 5 x 9 mm. The left supraclavicular region was also imaged without sonographic abnormality. Procedure Note Speedy Keenan MD - 11/02/2024 US SOFT TISSUES OF HEAD AND NECK (NON-THYROID) Referring clinician's provided indication for this examination in Epic:Mass/lump on face/head; Other Indication (Please use free text); Localizedswelling, mass and lump, neck COMPARISON: 12/23/2022 FINDINGS: Focused sonographic evaluation in the area of palpableabnormality as demonstrated by the patient in the low lateral posteriorneck. Subcutaneous hypoechoic oval-shaped nodule measures 16 x 6 x 6 mm withechogenic hilum, likely a lymph node with thickened cortex. On the priorstudy, this measured 13 x 5 x 6 mm. On 10/23/2022, this measured 15 x 5 x 9mm. The left supraclavicular region was also imaged without sonographicabnormality. IMPRESSION: 1. Mildly enlarged lymph node in the low lateral posterior neck is againnoted. This demonstrates a mildly thickened cortex and is similar to priorstudies. 2. Correlate with physical exam and history. If this is clinicallysuspicious based on physical exam, biopsy could be considered fordefinitive characterization. Surgical consultation could also beconsidered for further management. 3. No suspicious sonographic abnormality in the left supraclavicularregion. Correlate with physical exam. 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 PAP SMEAR (SUREPATH) CE: SPECIMEN ADEQUACY: Satisfactory for evaluation; transformation zone present. INTERPRETATION: NEGATIVE FOR INTRAEPITHELIAL LESION OR MALIGNANCY. Electronically Signed Out By: HOWARD Blue(ASCP) The Pap test is a screening test primarily for squamous cancers and precursors and has associated false-negative and false-positive results. New technologies such as liquid-based preparations may decrease but will not eliminate all false-negative results. Regular sampling and follow-up of unexplained clinical signs and symptoms are recommended to minimize false negative results. PROCEDURES/ADDENDA HPV Testing (Requested) Ordered Date: 07/24/2020 A. PAP SMEAR (SUREPATH) CE: Human Papilloma Virus Test Negative for high-risk human papillomavirus types 16, 18, 45 and the Other high risk probe set (Includes 31, 33, 35, 39, 51, 52, 56, 58, 59, 66, 68) by [employer] Onclarity HR-HPV analysis. Clinical correlation is advised. This HPV test was performed at [facility], [address] [place] [address]. This test has been FDA approved for SurePath cervical cytology specimens. The accuracy and precision of this test for all other specimen sources has been verified in the Cytopathology Laboratory of the [facility] and has not been cleared or approved by the U.S. Food and Drug Administration. Clinical correlation is advised. CLINICAL HISTORY Date of Last Menstrual Period: 06-27-2020 Other Clinical Conditions: Screening Pap SPECIMEN SOURCE A: PAP SMEAR (SUREPATH) CE Patient Name: ROLA BURK : 1990 (Age: 29) Sex: F [facility]: [facility] Location: [facility] Date of Collection: 07/23/2020 Date of Reported: 07/27/2020 08:45 Results to: Daiana Robles MSN, BS Daiana Robles HARVESTING CONTRACTOR CYTOLOGY ORDERABLES Final Resu lt SEE NARRATIVE from Last 3 Months or Most Recently Relevant to Health Maintenance Insurance [facility] Care Teams Milk Processing Worker Relationship Specialty Start Date End Date Leonel Shipman MD [address] [place] [address] [place] [address] PCP - General Internal Medicine 12/23/22 Rory Mcconnell MD [address] [place] [phone] [email or web address] Historical LMR Provider 03/12/17 Iggy Kent MD [address] [place] [address] [email or web address] Historical LMR Provider 03/12/17 Additional Source Comments The information contained in this document represents components of the legal health record. It is not the complete legal health record.[facility]
--- OUTSIDE RECORDS SUMMARY | 2025-01-30 10:38 | XMS_ITS | Encounter Summary ---
Author Organization [facility] Address [address] [place] [address] Phone Care Team Providers Care Signal Maintenance Technician Name Role Phone Minerva Shankar TECHNOLOGY ANALYST Unavailable [phone] Rose Maciel TECHNOLOGY ANALYST Unavailable [phone] Rory Mcconnell MD Unavailable Bernie Sharp MD Unavailable Iggy Kent MD Unavailable Simon Oliveira MD Unavailable [phone] Rory Mcconnell MD Primary Care Provider Rory Mcconnell MD Unavailable Rory Mcconnell MD Unavailable Rory Mcconnell MD Unavailable Leonel Shipman MD Primary Care Provider [phone] Encounter Details Date Type Department Care Team (Latest Contact Info) Description 07/27/2017 Transcribe Orders [facility] Laboratory [address] [id number] Rory Mcconnell MD [address] [place] [address] [phone] Immunity status testing (Primary Dx) Social History Tobacco Use Types Packs/Day Years Used Date Smoking Tobacco: Never Assessed Comments Unknown Sex and Gender Information Value Date Recorded Sex Assigned at Not on file Legal Sex Female 9:02 PM EDT Gender Identity Not on file Sexual Orientation Not on file documented as of this encounter Plan of Treatment Upcoming Encounters Date Type Department Care Team (Late st Contact Info) Description 02/07/2025 8:30 AM EDT Office Visit [facility] [address] [facility] 3rd Floor, [address] [place] [address] Sofie Hansen PA-C 50 [place] [address] 03/22/2025 6:00 PM EDT Appointment [facility] PFT Lab 30 [place] [address] Mar Deras MD [address] [place] [address] 03/30/2025 9:00 AM EST Nurse Only [facility] [address] [place] [address] Delvin Gross MD [address] [place] [address] 06/15/2025 8:20 AM EST Office Visit [facility] [address] [place] [address] Mar Deras MD [address] [place] [address] 07/23/2026 3:00 PM EST Office Visit [facility] Medicine [address] [place] [address] [place] [address] Cecilia Conn [address] [facility] [place] [address] [email or web address] documented as of this encounter Results * Hepatitis B surface antigen (07/27/2017 2:01 PM EST) HBV SURFACE ANTIGEN Negative Negative [facility] Blood 07/27/2017 2:01 PM EST 07/27/2017 2:07 PM EST us Rory Mcconnell MD LAB BLOOD ORDERABLES Final R esult Performing Organization Address City/[facility]/ZIP Co de Phone Number [address] [address] * Hepatitis B surface antibody (07/27/2017 2:01 PM EST) HBV SURFACE ANTIBODY Positive [facility] Comment: Unvaccinated: Negative Vaccinated: Positive Blood 07/27/2017 2:01 PM EST 07/27/2017 2:07 PM EST us Rory Mcconnell MD LAB BLOOD ORDERABLES Final R esult Performing Organization Address City/[facility] Co de Phone Number [address] [address] documented in this encounter Visit Diagnoses Diagnosis Immunity status testing- Primary Antibody response examination documented in this encounter Additional Health Concerns Infection Onset Date Last Indicated Resolved Time CoV-Risk 09/19/2019 09/19/2019 09/20/2019 12:2 2 PM EDT COVID-19 09/19/2019 09/19/2019 10/22/2019 1:26 AM EDT documented as of this encounter Care Teams Signal Maintenance Technician Relationship Specialty Start Date End Date Rory Mcconnell MD [address] [place] [address] [email or web address] PCP - General 05/28/17 12/22/22 Leonel Shipman MD [address] [place] [address] PCP - General Internal Medicine 12/23/22 Minerva Shankar NP 30 [place] [address] Historical LMR Provider 03/12/17 2 Rose Maciel, ADIN [address] [place] [address] 2_[place] [address] [email or web address] Historical LMR Provider 03/12/17 06/01/21 Rory Mcconnell MD [address] [place] [address] [email or web address] Historical LMR Provider 03/12/17 Bernie Sharp MD [address] [place] [address] [email or web address] Historical LMR Provider 03/12/17 06/01/21 Iggy Kent MD [address] [place] [address] [email or web address] Historical LMR Provider 03/12/17 Simon Oliveira MD 61 [place] [address] Historical LMR Provider 03/12/17 2 Rory Mcconnell MD [address] [place] [address] [email or web address] Insurance Assigned Provider 09/26/17 06/26/18 Rory Mcconnell MD [address] [address] [email or web address] Insurance Assigned Provider 10/24/18 04/30/19 Rory Mcconnell MD [address] [address] [email or web address] Insurance Assigned Provider 02/04/20 10/28/20 documented as of this encounter Additional Source Comments The information contained in this document represents components of the legal health record. It is not the complete legal health record.[facility]
--- OUTSIDE RECORDS SUMMARY | 2025-01-30 10:38 | XMS_ITS | Encounter Summary ---
Author Organization [facility] Address [address] [place] [address] [place] [address] Phone Care Team Providers Care Quality Assurance Technician Name Role Phone Rory Mcconnell MD Unavailable Iggy Kent MD Unavailable [phone] Rory Mcconnell MD Primary Care Provider Leonel Shipman MD Primary Care Provider [phone] Encounter Details Date Type Department Care Team (Late st Contact Info) Description 12/26/2021 Procedure Pass [facility] Echo Lab 30 [place], [place] [phone] Social History Tobacco Use Types Packs/Day Years Used Date Smoking Tobacco: Former Cigarettes Q uit: 02/24/2016 Smokeless Tobacco: Never Alcohol Use Standard Drinks/Week Comments Yes 1 (1 standard drink = 0.6 oz pur e alcohol) Comments No Sex and Gender Information Value [...] Encounters Date Type Department Care Team (Late Contact Info) Description 02/07/2025 8:30 AM EDT Office Visit [facility] [address] [facility] 3rd Floor, [address] [place] [address] Sofie Hansen, PAMagiC [address] [place] [address] 03/22/2025 6:00 PM EDT Appointment [facility] PFT Lab 30 [place] [address] Mar Deras MD [address] [place] [address] 03/30/2025 9:00 AM EST Nurse Only [facility] [address] [place] [address] Delvin Gross MD [address] [place] [address] 06/15/2025 8:20 AM EST Office Visit [facility] All[facility] Medicine [address] [place] [address] Mar Deras MD [address] [place] [address] 07/23/2026 3:00 PM EST Office Visit [facility] [address] [place] [address] Cecilia Conn [address] [place] [address], [address] [place] [address] [email or web address] documented as of this encounter Visit Diagnoses Not on filedocumented in this encounter Care Teams Quality Assurance Technician Relationship Specialty Start Date End Date Rory Mcconnell MD [address] [place] [address] [email or web address] PCP - General 05/28/17 12/22/22 Leonel Shipman MD [address] [place] [address] 101 [place] [address] PCP - General Internal Medicine 12/23/22 Rory Mcconnell MD [address] [place] [address] 12 [place] [address] [email or web address] Historical LMR Provider 03/12/17 Iggy Kent MD [address] [place] [address] 102 [place] [address] [email or web address] Historical LMR Provider 03/12/17 documented as of this encounter Additional Source Comments The information contained in this document represents components of the legal health record. It is not the complete legal health record.[facility]
--- OUTSIDE RECORDS SUMMARY | 2025-01-30 10:38 | XMS_ITS | Encounter Summary ---
Author Organization [facility] Address [address] [place] [address] [address] [place] [address] Phone Care Team Providers Care Bar Machine Operator Name Role Phone Rory Mcconnell MD Unavailable Iggy Kent MD Unavailable Rory Mcconnell MD Primary Care Provider Leonel Shipman MD Primary Care Provider [phone] Encounter Details Date Type Department Care Team (Late st Contact Info) Description 12/26/2021 Procedure Pass [facility], [facility] Scan - [address] [address] Social History Tobacco Use Types Packs/Day Years [...] 02/07/2025 8:30 AM EDT Office Visit [facility] [address] [place] [address] 3rd Floor, [address] [place] [address] Sofie Hansen, MADELIN [address] [place] [address] 03/22/2025 6:00 PM EDT Appointment [facility] PFT Lab 30 [place] [address] Mar Deras MD [address] [place] [address] 03/30/2025 9:00 AM EST Nurse Only [facility] Pulmonary, Allergy and Critical Care Medicine [address] [place] [address] Delvin Gross MD [address] [place] [address] 06/15/2025 8:20 AM EST Office Visit [facility] Pulmonary, Allergy and Critical Care Medicine [address] [place] [address] aMr Deras MD [address] [place] [address] 07/23/2026 3:00 PM EST Office Visit [facility] [address] [address] Cecilia Conn [address] [place] [address], [address] [place] [address] [email or web address] documented as of this encounter Visit Diagnoses Not on filedocumented in this encounter Care Teams Bar Machine Operator Relationship Specialty Start Date End Date Rory Mcconnell MD [address] [place] [address] [email or web address] PCP - General 05/28/17 12/22/22 Leonel Shipman MD [address] [place] [address] 101 [place] [address] PCP - General Internal Medicine 12/23/22 Rory Mcconnell MD [address] [place] [address] 12 [place] [address] [email or web address] Historical LMR Provider 03/12/17 Iggy Kent MD [address] [place] [address], [address] [place] [address] [email or web address] Historical LMR Provider 03/12/17 documented as of this encounter Additional Source Comments The information contained in this document represents components of the legal health record. It is not the complete legal health record.[facility]
--- OUTSIDE RECORDS SUMMARY | 2025-01-30 10:38 | XMS_ITS | Encounter Summary ---
Author Organization [facility] Address [address] [place] [address] [address] [place] [address] Phone Care Team Providers Care Acetylene Torch Operator Name Role Phone Rory Mcconnell MD Unavailable Iggy Kent MD Unavailable [phone] Rory Mcconnell MD Primary Care Provider Leonel Shipman MD Primary Care Provider [phone] Encounter Details Date Type Department Care Team (Late st Contact Info) Description 05/20/2022 Procedure Pass Non-Invasive Cardiology [address] [place] [address] Social History Tobacco Use Types Packs/Day Years [...] Description 02/07/2025 8:30 AM EDT Office Visit [facility] [address], [address] [place], [place] [phone] Sofie Hansen PA-C [address] [place] [address] 03/22/2025 6:00 PM EDT Appointment [facility] PFT Lab 30 [place] [address] Mar Deras MD [address] [place] [address] 03/30/2025 9:00 AM EST Nurse Only [facility] All[facility] Critical [facility] Medicine [address] [place] [address] Delvin Gross MD [address] [place] [address] 06/15/2025 8:20 AM EST Office Visit [facility] Medicine [address] [place] [address] Mar Deras MD [address] [place] [address] 07/23/2026 3:00 PM EST Office Visit [facility] [address] [address] Cecilia Conn [address] [place] [address], [address] [place] [address] [email or web address] documented as of this encounter Visit Diagnoses Not on filedocumented in this encounter Additional Health Concerns Assessment Noted Time PHQ-9 Depression Total Score: 9 05/20/20 22 1:33 PM EST PHQ-2 Depression Total Score: 0 05/20/20 22 1:33 PM EST documented as of this encounter Care Teams Acetylene Torch Operator Relationship Specialty Start Date End Date Rory Mcconnell MD [address] [place] [address] PCP - General 05/28/17 12/22/22 Leonel Shipman MD [address] [place] [address] PCP - General Internal Medicine 12/23/22 Rory Mcconnell MD [address] [place] [address] Historical LMR Provider 03/12/17 Iggy Kent MD [address] [place] [address] 102 [place] [address] [email or web address] Historical LMR Provider 03/12/17 documented as of this encounter Additional Source Comments The information contained in this document represents components of the legal health record. It is not the complete legal health record.[facility]
--- OUTSIDE RECORDS SUMMARY | 2025-01-30 10:38 | XMS_ITS | Encounter Summary ---
Author Organization [facility] Address [address] [place] [address] [place] [address] Phone Care Team Providers Care House Sitter Name Role Phone Rory Mcconnell MD Unavailable Iggy Kent MD Unavailable Rory Mcconnell MD Primary Care Provider Leonel Shipman MD Primary Care Provider [phone] Encounter Details Date Type Department Care Team (Latest Contact Info) Description 12/12/2022 Transcribe Orders Virtual Department 30 [place] [address] Katelin Muñoz MD [address] [place] [address], [facility] 8 [place] [address] [email or web address] Arthralgia of left acromioclavicular joint (Primary Dx) Social History Tobacco Use Types [...] Description 02/07/2025 8:30 AM EDT Office Visit [facility] [address] [place] [address] 3rd Floor, [address] [place] [address] Sofie Hansen PA-C 50 [place] [address] 03/22/2025 6:00 PM EDT Appointment [facility] PFT Lab 30 [place] [address] Mar Deras MD [address] [place] [address] 03/30/2025 9:00 AM EST Nurse Only [facility] All[facility] Critical [facility] Medicine [address] [place] [address] Delvin Gross MD [address] [place] [address] 06/15/2025 8:20 AM EST Office Visit [facility] Medicine [address] [place] [address] Mar Deras MD [address] [place] [address] 07/23/2026 3:00 PM EST Office Visit [facility] [address] [place] [address] [place] [address] Cecilia Conn [address] [place] [address], [address] [place] [address] [email or web address] documented as of this encounter Results * US UPPER EXTREMITY NON-VASCULAR LIMITED (LEFT) (12/23/2022 11:59 AM EDT) Anatomical Region Laterality Modality Shoulder Left, Arm Left, Elb ow Left, Forearm Left, Wrist Left, Hand Left Ultrasound 12/26/2022 8:08 AM EDT Impressions 12/26/2022 11:45 AM EDT FINDINGS/IMPRESSION: Superficial ultrasound of the left supra clavicular region in the area of reported palpable abnormality demonstrates a 13 x 6 x 5 mm node which appears similar to 10/23/2022, likely benign/reactive. This could be followed clinically. Narrative 12/26/2022 11:45 AM EDT TECHNIQUE: US UPPER EXTREMITY NON-VASCULAR LIMITED (LEFT) Focused sonographic evaluation of the left supraclavicular region COMPARISON: Targeted neck ultrasound 10/23/2022. Procedure Note Jack Hill MD - 12/26/2022 TECHNIQUE: US UPPER EXTREMITY NON-VASCULAR LIMITED (LEFT) Focused sonographic evaluation of the left supraclavicular region COMPARISON: Targeted neck ultrasound 10/23/2022. IMPRESSION: FINDINGS/IMPRESSION: Superficial ultrasound of the left supra clavicular region in the area ofreported palpable abnormality demonstrates a 13 x 6 x 5 mm node whichappears similar to 10/23/2022, likely benign/reactive. This could befollowed clinically. Katelin Muñoz MD IMG US EXTREMITY Final Result documented in this encounter Visit Diagnoses Diagnosis Arthralgia of left acromioclavicular joint- Primary Arthralgia of left acromioclavicular joint documented in this encounter Additional Health Concerns Assessment Noted Time PHQ-9 Depression Total Score: 9 05/20/20 22 1:33 PM EST PHQ-2 Depression Total Score: 0 05/20/20 22 1:33 PM EST documented as of this encounter Care Teams House Sitter Relationship Specialty Start Date End Date Rory Mcconnell MD [address] [address] PCP - General 05/28/17 12/22/22 Leonel Shipman MD [address] [place] [address] PCP - General Internal Medicine 12/23/22 Rory Mcconnell MD [address] [place] [address] [email or web address] Historical LMR Provider 03/12/17 Iggy Kent MD [address] [place] [address], [facility] [address] [place] [address] [email or web address] Historical LMR Provider 03/12/17 documented as of this encounter Additional Source Comments The information contained in this document represents components of the legal health record. It is not the complete legal health record.[facility]
--- OUTSIDE RECORDS SUMMARY | 2025-01-30 10:38 | XMS_ITS | Encounter Summary ---
Author Organization [facility] Address [address] [place] [address] Phone Care Team Providers Care Rattan Worker Name Role Phone Clover Shankarnifer Christo YARD SUPERVISOR Unavailable [phone] Rose Maciel YARD SUPERVISOR Unavailable Rory Mcconnell MD Unavailable [phone] Bernie Sharp MD Unavailable Iggy Kent MD Unavailable [phone] Simon Oliveira MD Unavailable [phone] Rory Mcconnell MD Primary Care Provider [phone] Leonel Shipman MD Primary Care Provider [phone] Reason for Referral * Consultation (Elective) - Closed Specialty Diagnoses / Procedures Referred By Don t Referred To Contact Pulmonary Disease Rory Mcconnell MD Phone: tel: fax: [email or web address] Phone: tel: Referral ID Status Reason Start Date Expiration Date Visits Re quested Visits Authorized [id number] Closed 02/18/2021 02/18/2022 1 1 Encounter Details Date Type Department Care Team ([facility] Contact Info) Description 02/18/2021 Transcribe Orders [facility], Allergy [facility] Critical Care Medicine 10 [place] [address] Rory Mcconnell MD [address] [place] [address] [email or web address] Social History Tobacco Use Types Packs/Day Years [...] Description 02/07/2025 8:30 AM EDT Office Visit [facility] [address] [place] [address] [address], [address] [place] [address] Sofie Hansen PAMarisol [address] [place] [address] 03/22/2025 6:00 PM EDT Appointment [facility] PFT Lab 30 [place] [address] Mar Deras MD [address] [place] [address] 03/30/2025 9:00 AM EST Nurse Only [facility], Allergy [facility] Critical [facility] Medicine 10 [place] [address] Delvin Gross MD [address] [address] 06/15/2025 8:20 AM EST Office Visit [facility] Pulmonary, Allergy and Critical Care Medicine [address] [place] [address] [place] [address] Mar Deras MD [address] [place] [address] 2nd [place] [address] 07/23/2026 3:00 PM EST Office Visit [facility] [address] [place] [address] Cecilia Conn [address] [place] [address], [address] [place] [address] [email or web address] Scheduled Referrals Name Type Priority Associated Diagnoses Order Schedule Ambulatory referral to [facility] Pulmonology Outpatient Referral Routine Ordered: 02/18/2021 documented as of this encounter Visit Diagnoses Not on filedocumented in this encounter Care Teams Rattan Worker Relationship Specialty Start Date End Date Rory Mcconnell MD [address] [place] [address] [email or web address] PCP - General 05/28/17 12/22/22 Leonel Shipman MD [address] [place] [address] PCP - General Internal Medicine 12/23/22 Minerva Shankar NP [address] [place] [address] Historical LMR Provider 03/12/17 2 Rose Maciel NP [address] [place] [address] 2_[place] [address] [email or web address] Historical LMR Provider 03/12/17 06/01/21 Rory Mcconnell MD [address] [place] [address] [email or web address] Historical LMR Provider 03/12/17 Bernie Sharp MD [address] [place] [address] [email or web address] Historical LMR Provider 03/12/17 06/01/21 Iggy Kent MD [address] [place] [address] Historical LMR Provider 03/12/17 Simon Oliveira MD [address] [place] [address] Historical LMR Provider 03/12/17 2 documented as of this encounter Additional Source Comments The information contained in this document represents components of the legal health record. It is not the complete legal health record.[facility]
--- OUTSIDE RECORDS SUMMARY | 2025-01-30 10:38 | XMS_ITS | Encounter Summary ---
Author Organization [facility] Address [address] [place] [address] Phone Care Team Providers Care Lane Marker Installer Name Role Phone Rory Mcconnell MD Unavailable Iggy Kent MD Unavailable Rory Mcconnell MD Primary Care Provider Leonel Shipman MD Primary Care Provider [phone] Encounter Details Date Type Department Care Team (Latest Contact Info) Description 10/13/2022 Transcribe Orders Virtual Department 30 [place], [place] [phone] Rory Mcconnell MD [address] [place] [address] [phone] [email or web address] Supraclavicular mass (Primary Dx) Social History Tobacco Use Types [...] Description 02/07/2025 8:30 AM EDT Office Visit [facility] [address] [place] [address] 3rd Floor, [address] [place] [address] Sofie Hansen PA-C 50 [place] [address] 03/22/2025 6:00 PM EDT Appointment [facility] 30 [place] [address] Mar Deras MD [address] [place] [address] 03/30/2025 9:00 AM EST Nurse Only [facility] Pulmonary, Allergy and Critical Care Medicine [address] [place] [address] Delvin Gross MD [address] [place] [address] 06/15/2025 8:20 AM EST Office Visit [facility] Pulmonary, Allergy and Critical Care Medicine [address] [place] [address] Mar Deras MD [address] [place] [address] 07/23/2026 3:00 PM EST Office Visit [facility] [place] [address] Cecilia Conn [address] [place] [address], [address] [place] [address] [email or web address] documented as of this encounter Results * US UPPER EXTREMITY NON-VASCULAR LIMITED (LEFT) (10/23/2022 11:54 AM EDT) Anatomical Region Laterality Modality Shoulder Left, Arm Left, Elb ow Left, Forearm Left, Wrist Left, Hand Left Ultrasound 10/23/2022 6:12 PM EDT Impressions 10/23/2022 6:15 PM EDT 1.5 x 0.5 x 0.9 cm borderline enlarged lymph node corresponding to the palpable area, most likely inflammatory. If this does not improve clinically, consider further follow-up with ultrasound or neck CT. Narrative 10/23/2022 6:15 PM EDT TECHNIQUE: US UPPER EXTREMITY NON-VASCULAR LIMITED (LEFT) Focused sonographic evaluation of the left neck base COMPARISON: None FINDINGS: Targeted ultrasound examination along the area of pain/palpable area indicated by the patient over the base of the left neck demonstrates a well-defined oval reniform-shaped subcutaneous mass measuring 1.5 x 0.5 x 0.9 cm, with mild internal vascularity, most likely representing a borderline enlarged lymph node, most likely inflammatory in etiology. Procedure Note Jax Thomas MD - 10/23/2022 TECHNIQUE: US UPPER EXTREMITY NON-VASCULAR LIMITED (LEFT) Focused sonographic evaluation of the left neck base COMPARISON: None FINDINGS: Targeted ultrasound examination along the area of pain/palpable areaindicated by the patient over the base of the left neck demonstrates awell-defined oval reniform-shaped subcutaneous mass measuring 1.5 x 0.5 x0.9 cm, with mild internal vascularity, most likely representing aborderline enlarged lymph node, most likely inflammatory in etiology. IMPRESSION: 1.5 x 0.5 x 0.9 cm borderline enlarged lymph node corresponding to thepalpable area, most likely inflammatory. If this does not improveclinically, consider further follow-up with ultrasound or neck CT. us Rory Mcconnell MD IMG US EXTREMITY Final Resul t documented in this encounter Visit Diagnoses Diagnosis Supraclavicular mass- Primary Supraclavicular mass documented in this encounter Additional Health Concerns Assessment Noted Time PHQ-9 Depression Total Score: 9 05/20/20 22 1:33 PM EST PHQ-2 Depression Total Score: 0 05/20/20 22 1:33 PM EST documented as of this encounter Care Teams Lane Marker Installer Relationship Specialty Start Date End Date Rory Mcconnell MD [address] [address] PCP - General 05/28/17 12/22/22 Leonel Shipman MD [address] [place] [address] PCP - General Internal Medicine 12/23/22 Rory Mcconnell MD [address] [address] Historical LMR Provider 03/12/17 Iggy Kent MD [address] [place] [address], [address] [place] [address] [email or web address] Historical LMR Provider 03/12/17 documented as of this encounter Additional Source Comments The information contained in this document represents components of the legal health record. It is not the complete legal health record.[facility]
== END 2025-01-30 10:27 | disposition home or self-care (01) ==
LOC: HO.HMCH 09:27
PROVIDERS: PCP Internal Medicine; Visit Provider Internal Medicine
DX: Z00.00 Encounter for general adult medical examination without abnormal findings (principal); U09.9 Post COVID-19 condition, unspecified; E66.9 Obesity, unspecified; Z68.30 Body mass index [BMI] 30.0-30.9, adult; R59.0 Localized enlarged lymph nodes; R10.30 Lower abdominal pain, unspecified; J45.909 Unspecified asthma, uncomplicated; J30.9 Allergic rhinitis, unspecified

== ENCOUNTER 2025-04-14 08:01 | Outpatient (REF) | payer OTHER, SELFPAY ==
--- NOTE | ~2025-04-14 | US_ITS ---
CLINICAL HISTORY: R10.9 - Unspecified abdominal pain US abdomen complete Comparison: None provided Findings: The liver is normal in size and echotexture without focal lesions or intrahepatic biliary dilatation. The gallbladder is nondistended. Gallbladder wall normal at 2 mm. There is no pericholecystic fluid or gallstones. CBD nondilated at 2 mm. The right kidney measures 11 cm and the left kidney measures 11 cm. No cortical renal lesions or signs of obstructive uropathy bilaterally. Unremarkable sonographic evaluation of the pancreas and spleen without focal lesions. The spleen measures nearly 10 cm. The aorta is normal in caliber. IVC is patent. There no fluid in the abdomen. IMPRESSION: 1. Normal complete abdominal ultrasound. This document has been electronically signed by: Landon Camarillo MD on 04/14/2025 09:36:41
--- OUTSIDE RECORDS SUMMARY | 2025-04-14 08:04 | XMS_ITS | Encounter Summary ---
Author Organization [facility] Address [address] [place] [address] Phone Care Team Providers Care Medicine Teacher Name Role Phone Clover Shankarnifer Christo GRAPPLE YARDER OPERATOR Unavailable [phone] Rose Maciel GRAPPLE YARDER OPERATOR Unavailable Rory Mcconnell MD Unavailable [phone] Bernie Sharp MD Unavailable Iggy Kent MD Unavailable [phone] Simon Oliveira MD Unavailable [phone] Rory Mcconnell MD Primary Care Provider Leonel Shipman MD Primary Care Provider [phone] Reason for Referral * Consultation (Elective) - Closed Specialty Diagnoses / Procedures Referred By Contadelaida t Referred To Contact Pulmonary Disease Rory Mcconnell MD Phone: tel: fax: [email or web address] Phone: tel: Referral ID Status Reason Start Date Expiration Date Visits Re quested Visits Authorized [id number] Closed 02/18/2021 02/18/2022 1 1 Encounter Details Date Type Department Care Team ([facility] Contact Info) Description 02/18/2021 Transcribe Orders [facility] Pulmonary, Allergy and Critical Care Medicine 10 [place] [address] Rory Mcconnell MD [address] [address] [email or web address] Social History Tobacco Use Types Packs/Day Years [...] Department Care Team (Late Contact Info) Description 06/15/2025 8:20 AM EST Office Visit [facility] Pulmonary, Allergy and Critical Care Medicine 10 [place] [address] Mar Deras MD [address] [place] [address] 07/23/2026 3:00 PM EST Office Visit [facility] [address] [address] Cecilia Conn [address] [place] [address], [address] [place] [address] [email or web address] Scheduled Referrals Name Type Priority Associated Diagnoses Order Schedule Ambulatory referral to [facility] Pulmonology Outpatient Referral Routine Ordered: 02/18/2021 documented as of this encounter Visit Diagnoses Not on filedocumented in this encounter Care Teams Medicine Teacher Relationship Specialty Start Date End Date Rory Mcconnell MD [address] [address] PCP - General 05/28/17 12/22/22 Leonel Shipman MD [address] [place] [address] PCP - General Internal Medicine 12/23/22 Minerva Shankar NP 30 [place] [address] Historical LMR Provider 03/12/17 Rose Mariee NP [address] [place] [address] 2_[place] [address] Historical LMR Provider 03/12/17 06/01/21 Rory Mcconnell MD [address] [place] [address] [email or web address] Historical LMR Provider 03/12/17 Bernie Sharp MD [address] [place] [address] Historical LMR Provider 03/12/17 06/01/21 Iggy Kent MD [address] [place] [address] Historical LMR Provider 03/12/17 Simon Oliveira MD 61 [place] [address] Historical LMR Provider 03/12/17 2 documented as of this encounter Additional Source Comments The information contained in this document represents components of the legal health record. It is not the complete legal health record.[facility]
--- OUTSIDE RECORDS SUMMARY | 2025-04-14 08:04 | XMS_ITS | Encounter Summary ---
Author Organization [facility] Address [address] [place] [address] Phone Care Team Providers Care Intelligence Intern Name Role Phone Rory Mcconnell MD Unavailable Iggy Kent MD Unavailable [phone] Leonel Shipman MD Primary Care Provider [phone] Encounter Details Date Type Department Care Team (Late st Contact Info) Description 04/06/2025 Orders Only [facility] [address]rd Floor, [address] [place] [address] Provider, MD Tj [address] [place] [address] Social History Tobacco Use Types Packs/Day Years [...] Upcoming Encounters Date Type Department Care Team ([facility] Contact Info) Description 06/15/2025 8:20 AM EST Office Visit [facility] Pulmonary, Allergy and Critical Care Medicine 10 [facility] [place] [address] Mar Deras MD [address] [address] 07/23/2026 3:00 PM EST [facility] [address] [place] [address] Cecilia Conn [address] [place] [address], [address] [place] [address] [email or web address] documented as of this encounter Procedures Procedure Name Priority Date/Time Associated Diagnosis Comments OUTSIDE LAB Routine 04/06/2025 3:23 PM EST documented in this encounter Results * Outside Lab (Non-MGB) (04/06/2025 3:23 PM EST) us Historical Provider LAB BLOOD BKR ORDERABLES Final Result documented in this encounter Visit Diagnoses Not on filedocumented in this encounter Additional Health Concerns Assessment Noted Time PHQ-9 Depression Total Score: 9 05/20/20 22 1:33 PM EST PHQ-2 Depression Total Score: 0 05/20/20 22 1:33 PM EST documented as of this encounter Care Teams Intelligence Intern Relationship Specialty Start Date End Date Leonel Shipman MD [address] [place] [address] PCP - General Internal Medicine 12/23/22 Rory Mcconnell MD [address] [place] [address] 12 [place] [address] [email or web address] Historical LMR Provider 03/12/17 Iggy Kent MD [address] [place] [address] [email or web address] Historical LMR Provider 03/12/17 documented as of this encounter Additional Source Comments The information contained in this document represents components of the legal health record. It is not the complete legal health record.[facility]
--- OUTSIDE RECORDS SUMMARY | 2025-04-14 08:04 | XMS_ITS | Encounter Summary ---
Author Organization [facility] Address [address] [place] [address] Phone Care Team Providers Care Artificial Breast Fabricator Name Role Phone Minerva Shankar CAMP MANAGER Unavailable Rose Maciel CAMP MANAGER Unavailable Rory Mcconnell MD Unavailable Bernie Sharp MD Unavailable Iggy Kent MD Unavailable Simon Oliveira MD Unavailable [phone] Rory Mcconnell MD Primary Care Provider Rory Mcconnell MD Unavailable [phone] Rory Mcconnell MD Unavailable Rory Mcconnell MD Unavailable Leonel Shipman MD Primary Care Provider [phone] Encounter Details Date Type Department Care Team (Latest Contact Info) Description 07/27/2017 Transcribe Orders [facility] [address] [id number] Rory Mcconnell MD [address] [place] [address] [phone] Immunity status testing (Primary Dx) Social History [...] Care Team (Late st Contact Info) Description 06/15/2025 8:20 AM EST Office Visit [facility] Pulmonary, Allergy and Critical Care Medicine 10 [facility] [place] [address] Mar Deras MD 10 [facility] 2nd [place] [address] 07/23/2026 3:00 PM EST Office Visit [address] [address] Cecilia Conn 22 [facility], [address] [place] [address] [email or web address] documented as of this encounter Results * Hepatitis B surface antigen (07/27/2017 2:01 PM EST) HBV SURFACE ANTIGEN Negative Negative [facility] Blood 07/27/2017 2:01 PM EST 07/27/2017 2:07 PM EST Rory Mcconnell MD LAB BLOOD BKR ORDERABLES Fin al Result [facility] 30 [place] [address] * Hepatitis B surface antibody (07/27/2017 2:01 PM EST) HBV SURFACE ANTIBODY Positive [facility] Comment: Unvaccinated: Negative Vaccinated: Positive Blood 07/27/2017 2:01 PM EST 07/27/2017 2:07 PM EST Rory Mcconnell MD LAB BLOOD BKR ORDERABLES Fin al Result [facility] 30 [place] [address] documented in this encounter Visit Diagnoses Diagnosis Immunity status testing- Primary Antibody response examination documented in this encounter Additional Health Concerns Infection Onset Date Last Indicated Resolved Time CoV-Risk 09/19/2019 09/19/2019 09/20/2019 12:2 2 PM EDT COVID-19 09/19/2019 09/19/2019 10/22/2019 1:26 AM EDT documented as of this encounter Care Teams Artificial Breast Fabricator Relationship Specialty Start Date End Date Rory Mcconnell MD [address] [address] [email or web address] PCP - General 05/28/17 12/22/22 Leonel Shipman MD [address] [place] [address] PCP - General Internal Medicine 12/23/22 Minerva Shankar NP [address] [place] [address] Historical LMR Provider 03/12/17 Rose Mariee NP [address] [place] [address] 2_[place] [address] [email or web address] Historical LMR Provider 03/12/17 06/01/21 Rory Mcconnell MD [address] [place] [address] [email or web address] Historical LMR Provider 03/12/17 Bernie Sharp MD [address] [place] [address], [address] [address] [email or web address] Historical LMR Provider 03/12/17 06/01/21 Iggy Kent MD [address] [place] [address] [email or web address] Historical LMR Provider 03/12/17 Simon Oliveira MD [address] [place] [address] Historical LMR Provider 03/12/17 2 Rory Mcconnell MD [address] [address] [email or web address] Assigned Provider 09/26/17 06/26/18 Rory Mcconnell MD [address] [address] [email or web address] Insurance Assigned Provider 10/24/18 04/30/19 Rory Mcconnell MD [address] [address] [email or web address] Insurance Assigned Provider 02/04/20 10/28/20 documented as of this encounter Additional Source Comments The information contained in this document represents components of the legal health record. It is not the complete legal health record.[facility]
--- OUTSIDE RECORDS SUMMARY | 2025-04-14 08:04 | XMS_ITS | Encounter Summary ---
Author Organization [facility] Address [address] [place] [address] [place] [address] Phone Care Team Providers Care Audio/Visual Operator Name Role Phone Rory Mcconnell MD Unavailable Iggy Kent MD Unavailable Rory Mcconnell MD Primary Care Provider Leonel Shipman MD Primary Care Provider [phone] Encounter Details Date Type Department Care Team (Late Contact Info) Description 12/26/2021 Procedure Pass [facility], Ct Scan - [address] [address] Social History Tobacco Use Types Packs/Day Years [...] Pulmonary, Allergy and Critical Care Medicine 10 [facility] [place], [place] [id number] Mar Deras MD [address] [address] 07/23/2026 3:00 PM EST [facility] [address] [place] [address] ScottdelmaMagiTiffanie Cecilia 22 [facility], [address] [place] [address] [email or web address] documented as of this encounter Visit Diagnoses Not on filedocumented in this encounter Care Teams Audio/Visual Operator Relationship Specialty Start Date End Date Rory Mcconnell MD [address] [address] [email or web address] PCP - General 05/28/17 12/22/22 Leonel Shipman MD [address] [place] [address] PCP - General Internal Medicine 12/23/22 Rory Mcconnell MD [address] [place] [address] [email or web address] Historical LMR Provider 03/12/17 Iggy Kent MD 22 [facility], [address] [place] [address] Historical LMR Provider 03/12/17 documented as of this encounter Additional Source Comments The information contained in this document represents components of the legal health record. It is not the complete legal health record.[facility]
--- OUTSIDE RECORDS SUMMARY | 2025-04-14 08:04 | XMS_ITS | Encounter Summary ---
Author Organization [facility] Address [address] [place] [address] [place] [address] Phone Care Team Providers Care Customer Relations Representative Name Role Phone Rory Mcconnell MD Unavailable Iggy Kent MD Unavailable Rory Mcconnell MD Primary Care Provider Leonel Shipman MD Primary Care Provider [phone] Encounter Details Date Type Department Care Team (Late Contact Info) Description 05/20/2022 Procedure Pass Non-Invasive Cardiology [address] [place] [address] Social History Tobacco Use Types Packs/Day Years [...] Pulmonary, Allergy and Critical Care Medicine 10 [place], [place] [phone] Mar Deras MD [address] [phone] 07/23/2026 3:00 PM EST Office Visit [facility] [address] [place] [address] ScottdelmaCecilia Louis 22 [facility], [address] [place] [address] [email or web address] documented as of this encounter Visit Diagnoses Not on filedocumented in this encounter Additional Health Concerns Assessment Noted Time PHQ-9 Depression Total Score: 9 05/20/20 22 1:33 PM EST PHQ-2 Depression Total Score: 0 05/20/20 22 1:33 PM EST documented as of this encounter Care Teams Customer Relations Representative Relationship Specialty Start Date End Date Rory Mcconnell MD [address] [place] [address] PCP - General 05/28/17 12/22/22 Leonel Shipman MD [address] [place] [address] PCP - General Internal Medicine 12/23/22 Rory Mcconnell MD [address] [place] [address] Historical LMR Provider 03/12/17 Iggy Kent MD [address] [place] [address], [address] [place] [address] [email or web address] Historical LMR Provider 03/12/17 documented as of this encounter Additional Source Comments The information contained in this document represents components of the legal health record. It is not the complete legal health record.[facility]
--- OUTSIDE RECORDS SUMMARY | 2025-04-14 08:04 | XMS_ITS | Encounter Summary ---
Author Organization [facility] Address [address] [place] [address] Phone Care Team Providers Care Logistics Director Name Role Phone Rory Mcconnell MD Unavailable Iggy Kent MD Unavailable Rory Mcconnell MD Primary Care Provider Leonel Shipman MD Primary Care Provider [phone] Encounter Details Date Type Department Care Team (Latest Contact Info) Description 10/13/2022 Transcribe Orders Virtual Department 30 [place] [address] Rory Mcconnell MD [address] [place] [address] [phone] [email or web address] Supraclavicular mass (Primary Dx) Social History Tobacco [...] Pulmonary, Allergy and Critical Care Medicine 10 [facility] [place] [address] Mar Deras MD [address] [address] [email or web address] 07/23/2026 3:00 PM EST Office Visit [facility] [address] [place] [address] Cecilia Conn [address] [place] [address], [address] [place] [address] [email or web address] documented as of this encounter Results [...] documented as of this encounter Care Teams Logistics Director Relationship Specialty Start Date End Date Rory Mcconnell MD [address] [place] [address] PCP - General 05/28/17 12/22/22 Leonel Shipman MD [address] [place] [address] PCP - General Internal Medicine 12/23/22 Rory Mcconnell MD [address] [place] [address] [email or web address] Historical LMR Provider 03/12/17 Iggy Kent MD [address] [place] [address] 102 [place] [address] [email or web address] Historical LMR Provider 03/12/17 documented as of this encounter Additional Source Comments The information contained in this document represents components of the legal health record. It is not the complete legal health record.[facility]
--- OUTSIDE RECORDS SUMMARY | 2025-04-14 08:04 | XMS_ITS | Encounter Summary ---
Author Organization [facility] Address [address] [place] [address] [place] [address] Phone Care Team Providers Care Certified Prosthetist Vice President Name Role Phone Rory Mcconnell MD Unavailable Iggy Kent MD Unavailable Leonel Shipman MD Primary Care Provider [phone] Encounter Details Date Type Department Care Team (Late st Contact Info) Description 10/27/2024 Ancillary Orders [facility], X-Ray - [address] [address] Leonel Shipman MD [address] [place] [address] [place] [address] Localized swelling, mass and lump, neck (Primary [...] Upcoming Encounters Date Type Department Care Team ([facility] st Contact Info) Description 06/15/2025 8:20 AM EST Office Visit [facility] Pulmonary, Allergy and Critical Care Medicine [address] [facility] [place] [address] Mar Deras MD 10 [facility] 2nd [place] [address] [email or web address] 07/23/2026 3:00 PM EST Office Visit [facility] [place] [address] Cecilia Conn 22 [facility], [address] [place] [address] [email or web address] documented as of this encounter Visit Diagnoses Diagnosis Localized swelling, mass and lump, neck- Primary Swelling, mass, or lump in head and neck documented in this encounter Additional Health Concerns Assessment Noted Time PHQ-9 Depression Total Score: 9 05/20/20 22 1:33 PM EST PHQ-2 Depression Total Score: 0 05/20/20 22 1:33 PM EST documented as of this encounter Care Teams Certified Prosthetist Vice President Relationship Specialty Start Date End Date Leonel Shipman MD [address] [place] [address] PCP - General Internal Medicine 12/23/22 Rory Mcconnell MD [address] [place] [address] [email or web address] Historical LMR Provider 03/12/17 Iggy Kent MD [address] [place] [address], [address] [place] [address] [email or web address] Historical LMR Provider 03/12/17 documented as of this encounter Additional Source Comments The information contained in this document represents components of the legal health record. It is not the complete legal health record.[facility]
--- OUTSIDE RECORDS SUMMARY | 2025-04-14 08:04 | XMS_ITS | Clinical Summary ---
Author Organization [facility] Address Critical access hospital [employer] [address] [address] Phone Care Team Providers Care Etcher Enameling Name Role Phone Rory Mcconnell MD Unavailable [phone] Iggy Kent MD Unavailable [phone] Leonel Shipman MD Primary Care Provider [phone] Allergies Active Allergy Reactions Criticality Noted Date Comments Aller Ext-Stateless Cockroach 022 Cat Dander 12/26/2021 Dog Dander 12/26/2021 Grass Pollen 12/26/2021 House Dust Mite 12/26/2021 Mold 12/26/2021 Mouse Epithelium Allergenic Extract 12/26/2021 Other 12/26/2021 Rabbit 12/26/2021 Ragweed 12/26/2021 Tree And Shrub Pollen 12/26/2021 [place] Pollen-Citizen Of [place] Plantain 022 Medications cetirizine (ZYRTEC) 10 MG tablet Take 10 mg by mouth as needed. Active fluticasone propionate (FLONASE) 50 mcg/actuation nasal spray 2 sprays by Nasal route as needed. Active tretinoin (RETIN-A) 0.025 % cream as needed. 12/28/19 24 Active metroNIDAZOLE (METROGEL) 0.75 % (37.5mg/5 gram) vaginal gel Place vaginally every evening. 70 g 07/13/19 25 Active Additional Information Patient not taking.Reported on 11/02/2024 PULMICORT FLEXHALER 90 mcg/actuation inhalerIndicatio ns:Moderate persistent asthma without complication TAKE 1 PUFF BY MOUTH TWICE A DAY 3 each 4 07/22/19 25 Active Additional Information Patient taking differently: As needed, Reported on 03/28/2025 fluticasone furoate-vilanter oL (BREO ELLIPTA) 100-25 mcg/dose inhaler Inhale 1 puff into the lungs daily. 60 each 5 10/29/19 25 Active albuterol 90 mcg/actuation inhaler Inhale 2 puffs into the lungs every 6 (six) hours as needed for wheezing or shortness of breath/dyspnea. 18 g 03/24/20 25 Active fexofenadine (NADIA) 180 MG tablet Take 180 mg by mouth daily. Active albuterol 90 mcg/actuation inhaler TAKE 2 PUFFS BY MOUTH EVERY 6 HOURS NEEDED 18 g 3 11/18/19 23 025 Discontin ued(Reord er) Active Problems Problem Noted Date Diagnosed Date [...] this time. Referred to SMART program at [facility] for resiliency training. Discussed this is likely [...] PM EST): Patient unable to see the [facility] long COVID specialist due to her insurance reasons. 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 I will send a referral for her to see this person. Shortness of breath 12/26/2021 Assessment & Plan (06/10/2024 1:13 PM EST): [id number] Respiratory Symptoms Persistent respiratory symptoms following COVID-19 [...] lung disease. Palpitations 12/26/2021 Assessment & Plan (03/28/2025 4:27 PM EST): Not currently endorsing. Previous echocardiogram was unremarkable. Previous monitoring has shown a few PACs and PVCs. She is asymptomatic today. She takes no cardiovascular medications. Triggers discussed. Consider repeat monitoring should symptoms resurface. Labs reviewed. She will follow-up with cardiology as needed. Assessment & Plan (12/04/2023 10:17 AM EDT): [...] PM EDT): Moderate persistent asthma with exacerbations [id number] infection. Despite normal pulmonary function test results, [...] Encounters Date Type Department Care Team Description 04/06/2025 Orders Only [facility] [address] Floor, [address] [place] [address] Provider, MD Tj 03/30/2025 9:00 AM EST Nurse Only [facility], Allergy [facility] Critical [facility] [address] [place] [address] Delvin Gross MD Zaman, Tonbira S, MD Moderate persistent asthma without complication (Primary Dx) 03/28/2025 4:00 PM EST Office Visit [facility] [address], [address] [place] [address] Sofie Hansen, PAMarisol Palpitations (Primary Dx) 03/22/2025 4:11 PM EDT - 03/22/2025 11:59 PM EDT Hospital Encounter [facility] PFT Lab [address] [place] [address] Mar Deras MD Discharge Disposition: Home or Self Care 03/15/2025 Transcribe Orders [facility] PFT Lab [address] [place] [address] Mar Deras MD 02/27/2025 Telephone [facility], Allergy [facility] Critical Care Medicine 10 [place] [address] Sadie Gillespie Covid + Flu vaccines from Last 3 Months Immunizations Immunization Administration Dates Next Due COVID-19 (Pre-03/16) Moderna Vaccine, mRNA, PF 02/22/2025,07/20/2024,07/05/2020 Hepatitis B 10/23/1994 Influenza High-Dose Trivalen t Preservative Free IM 02/22/2025 Influenza Quadrivalent Prese rvative Free IM 04/07/2023,04/30/2022,03/10/2021,2019 Influenza Trivalent MDCK Pre servative Free IM 02/22/2025,07/18/2024 Polio, Unspecified Formulation 10/23/1994 Td (adult) 5 Lf Tetanus Toxo id, PF, Adsorbed 07/30/2017 Family History * Patient is adopted Medical [...] Sign Reading Time Taken Comments Blood Pressure 112/68 03/28/2025 4:00 PM EST Pulse 68 03/28/2025 4:00 PM EST Temperature 36.2 C (97.2 F) 11/02/2024 3:48 PM EDT Respiratory Rate 18 06/09/2020 7:42 PM EST Oxygen Saturation 97% 03/28/2025 4:00 PM EST Inhaled Oxygen Concentration - - Weight 83.5 kg (184 lb) 03/28/2025 4:00 PM EST Height 163.8 cm (5' 4.49 ) 03/28/2025 4:00 PM ES T Body Mass Index 31.11 03/28/2025 4:00 PM EST Plan of Treatment Upcoming Encounters Date Type Department Care Team (Late st Contact Info) Description 06/15/2025 8:20 AM EST Office Visit [facility], Allergy [facility] 10 [facility] [place] [address] [place] [address] Mar Deras MD 10 [facility] 2nd [place] [address] 07/23/2026 3:00 PM EST [facility] Visit [facility] [address] [place] [address] Cecilia Conn 22 [facility], [address] [place] [address] [email or web address] Health Maintenance Due Date Last Done Comments IPV VACCINES (2 of 3 - 4-dose series) 11/20/1994 10/23/1994 HIV ONE-TIME SCREENING (18-65 YEARS) 2008 PNEUMOCOCCAL VACCINES (0-49 years) (1 of 2 - PCV) 2009 DEPRESSION SCREENING 05/20/2023 05/20/2022, 05/20/20 22 COVID-19 VACCINE (2024- season) 2025 02/22/2025, 02/22/2025, 07/20/2024, Additional history exists PAP SMEAR 07/23/2025 07/23/2020, 10/24, 11/13/2016 Adult Td,Tdap Booster 07/31/2027 07/30/2017 SMOKING STATUS SCREENING (Every 5 Years) 03/28/2030 03/28/2025 HEPATITIS C SCREENING Completed 07/27/2017 INFLUENZA VACCINE Completed 02/22/2025, , 07/18/2024, Additional history exists HEPATITIS A VACCINES Aged Out No long [...] OUTSIDE LAB Routine 04/06/2025 3:23 PM EST PULMONARY FUNCTION TEST Routine 03/22/2025 4:49 PM EDT Moderate persistent asthma without complication PAP TEST Routine 07/23/2020 12:00 AM EST HEPATITIS B SURFACE ANTIGEN Routine 07/27/2017 2:01 PM EST Immunity status testing from Last 3 Months or Most Recently Relevant to Health Maintenance Results * Outside Lab (Non-MGB) (04/06/2025 3:23 PM EST) us Historical Provider LAB BLOOD BKR ORDERABLES Final Result * Pulmonary Function Test Reason for Exam: Dyspnea/Shortness of Breath; Type of PFT Test: Spirometry with bronchodilator, DLCO, Lung Volumes; Additional Testing: Exhaled Nitric Oxide Test ([facility], [facility], [facility], [facility] and [facility] only); Performing Location: [facility]... (03/22/2025 4:49 PM EDT) FEV1 3.60 liters FVC 4.66 liters FEV1/FVC 77 % TLC 5.64 liters DLCO 20.88 ml/mmHg sec Anatomical Region Laterality Modality Other Impressions 03/22/2025 4:49 PM EDT PULMONARY FUNCTION STUDIES Full pulmonary function studies were performed on this 34 y.o. year-old female for evaluation of asthma. Review of the medical record reveals that the patient is a past smoker. Prior pulmonary function studies from 05/30/2022 are available for comparison. SPIROMETRY: The FEV1 is normal at 3.60 L or 119% predicted. The FVC is normal at 4.66 L or 130% predicted. The FEV1/FVC ratio is normal at 77%. After the administration of a bronchodilator agent, there is no technically significant change. FLOW-VOLUME LOOPS: Evaluation of the flow-volume loops reveals normal morphology of both the inspiratory and expiratory limbs with no significant difference when comparing the tracings performed pre- and post-bronchodilator. LUNG VOLUME MEASUREMENTS BY PLETHYSMOGRAPHY: The total lung capacity is normal at 5.64 L or 106% predicted. The RV/TLC ratio is normal at 17%. DIFFUSION CAPACITY: The diffusion capacity is normal at 20.9 mL/mmHg sec or 94% predicted. EXHALED NITRIC OXIDE MEASUREMENT: FeNO is 9 ppb. COMPARISON TO PRIOR STUDIES: When comparing to prior studies, there has been no significant change. Resting oxygen saturation is 99% on room air. IMPRESSION: Normal pulmonary function studies and normal exhaled nitric oxide measurement. Technical Note: As of 04/05/2024, the [facility] Pulmonary Function Testing (PFT) Laboratory transitioned from using race-specific to using race-neutral equations for determining lung function predicted values for all persons. Due to this change some individuals previously classified as either normal or abnormal may now change from one to the other category without a true change in lung function. Such changes, as well as changes in severity classification, should be considered broadly and in their clinical context. Absolute values of lung function are unaffected. For further questions please contact the interpreting physician or PFT liaison inspection laboratory assistant. For further discussion of this issue please see Kimmie et al [facility] 2022;2078):978. Please Note: Not all PFT labs within, or outside of, our system will be transitioning to new reference equations at the same time. For this reason, please pay close attention to absolute values when comparing results done at different testing locations within or outside of our system. us Mar Deras MD PFT ORDERABLES Final Result * Pap Smear (07/23/2020 12:00 AM EST) 07/23/2020 07/24/2020 9:1 7 AM EST Narrative SEE NARRATIVE - 07/27/2020 8:45 AM EST [address] [address] Risk Control Representative: Radha Heredia MD CLOTH WIRE WEAVER Cytology Report FINAL DIAGNOSIS A. PAP SMEAR (SUREPATH) CE: SPECIMEN ADEQUACY: Satisfactory for evaluation; transformation zone present. INTERPRETATION: NEGATIVE FOR INTRAEPITHELIAL LESION OR MALIGNANCY. Electronically Signed Out By: Ector Mackenzie CT(ASCP) The Pap test is a screening test [...] 52, 56, 58, 59, 66, 68) by [employer] HR-HPV analysis. Clinical correlation is advised. This HPV test was performed at [facility], [address] [place] [address]. This test has been FDA approved for SurePath cervical cytology specimens. The accuracy and precision of this test for all other specimen sources has been verified in the Cytopathology Laboratory of the [facility] and has not been cleared or approved by the U.S. Food and Drug Administration. Clinical correlation is advised. CLINICAL HISTORY Date of Last Menstrual Period: 06-27-2020 Other Clinical Conditions: Screening Pap SPECIMEN SOURCE A: PAP SMEAR (SUREPATH) CE Patient Name: ROLA BURK : 1990 (Age: 29) Sex: F Institution: [facility] Location: [facility] Date of Collection: 07/23/2020 Date of Reported: 07/27/2020 08:45 Results to: Daiana Robles MSN, BS Daiana Robles ASP DEVELOPER CYTOLOGY ORDERABLES Final Resu lt SEE NARRATIVE * Hepatitis B surface antigen (07/27/2017 2:01 PM EST) HBV SURFACE ANTIGEN Negative Negative [facility] Blood 07/27/2017 2:01 PM EST 07/27/2017 2:07 PM EST Rory Mcconnell MD LAB BLOOD BKR ORDERABLES Fin al Result [address] [address] from Last 3 Months or Most Recently Relevant to Health Maintenance Insurance [facility] Care Teams Etcher Enameling Relationship Specialty Start Date End Date Leonel Shipman MD [address] [place] [address] [address] [place] [address] PCP - General Internal Medicine 12/23/22 Rory Mcconnell MD [address] [place] [address] 12 [place] [address] [email or web address] Historical LMR Provider 03/12/17 Iggy Kent MD [address] [place] [address] 102 [place] [address] [email or web address] Historical LMR Provider 03/12/17 Additional Source Comments The information contained in this document represents components of the legal health record. It is not the complete legal health record.[facility]
--- OUTSIDE RECORDS SUMMARY | 2025-04-14 08:04 | XMS_ITS | Encounter Summary ---
Author Organization [facility] Address [address] [place] [address] [place] [address] Phone Care Team Providers Care Mechanical Drafter Name Role Phone Rory Mcconnell MD Unavailable Iggy Kent MD Unavailable [phone] Rory Mcconnell MD Primary Care Provider Leonel Shipman MD Primary Care Provider [phone] Encounter Details Date Type Department Care Team (Late Contact Info) Description 12/26/2021 Procedure Pass [facility] Echo Lab 30 [place] [address] Social History Tobacco Use Types Packs/Day Years [...] Pulmonary, Allergy and Critical Care Medicine 10 [place], [place] [id number] Mar Deras MD [address] [id number] [email or web address] 07/23/2026 3:00 PM EST Office Visit [facility] [address] [place] [address] ScottdelmaCecilia Louis 22 [facility], [address] [place] [address] [email or web address] documented as of this encounter Visit Diagnoses Not on filedocumented in this encounter Care Teams Mechanical Drafter Relationship Specialty Start Date End Date Rory Mcconnell MD [address] [place] [address] [email or web address] PCP - General 05/28/17 12/22/22 Leonel Shipman MD [address] [place] [address] PCP - General Internal Medicine 12/23/22 Rory Mcconnell MD [address] [address] [email or web address] Historical LMR Provider 03/12/17 Iggy Kent MD 22 [facility], [address] [place] [address] Historical LMR Provider 03/12/17 documented as of this encounter Additional Source Comments The information contained in this document represents components of the legal health record. It is not the complete legal health record.[facility]
--- OUTSIDE RECORDS SUMMARY | 2025-04-14 08:05 | XMS_ITS | Encounter Summary ---
Author Organization [facility] Address [address] [place] [address] [place] [address] Phone Care Team Providers Care Divisional Storekeeper Name Role Phone Rory Mcconnell MD Unavailable Iggy Kent MD Unavailable [phone] Rory Mcconnell MD Primary Care Provider Leonel Shipman MD Primary Care Provider [phone] Encounter Details Date Type Department Care Team (Latest Contact Info) Description 12/12/2022 Transcribe Orders Virtual Department 30 [place] [address] Katelin Muñoz MD [address] [place] [address], [facility] 8 [place] [address] [email or web address] Arthralgia of left acromioclavicular joint (Primary Dx) [...] Pulmonary, Allergy and Critical Care Medicine 10 [facility] [place] [address] Mar Deras MD 10 [facility] 2nd [place] [address] 07/23/2026 3:00 PM EST Office Visit [facility] [place] [address] Cecilia Conn 22 [facility], [address] [place] [address] [email or web address] documented as of this encounter [...] 10/23/2022, likely benign/reactive. This could befollowed clinically. us Katelin Muñoz MD IMG US EXTREMITY Final Result documented in this encounter Visit Diagnoses Diagnosis Arthralgia of left acromioclavicular joint- Primary Arthralgia of left acromioclavicular joint documented in this encounter Additional Health Concerns Assessment Noted Time PHQ-9 Depression Total Score: 9 05/20/20 22 1:33 PM EST PHQ-2 Depression Total Score: 0 05/20/20 22 1:33 PM EST documented as of this encounter Care Teams Divisional Storekeeper Relationship Specialty Start Date End Date Rory Mcconnell MD [address] [address] [email or web address] PCP - General 05/28/17 12/22/22 Leonel Shipman MD [address] [place] [address] PCP - General Internal Medicine 12/23/22 Rory Mcconnell MD [address] [address] [email or web address] Historical LMR Provider 03/12/17 Iggy Kent MD [address] [place] [address], [place] [id number] [email or web address] Historical LMR Provider 03/12/17 documented as of this encounter Additional Source Comments The information contained in this document represents components of the legal health record. It is not the complete legal health record.[facility]
== END 2025-04-14 08:02 | disposition home or self-care (01) ==
LOC: HO.US 08:01
PROVIDERS: PCP Internal Medicine; Visit Provider Internal Medicine
DX: R10.30 Lower abdominal pain, unspecified (principal)
CPT/HCPCS: 76700

== ENCOUNTER → 2025-04-14 08:03 | Outpatient (BNV) | payer OTHER, SELFPAY | PROVIDERS: PCP Internal Medicine; Visit Provider Radiology Diagnostic Radiology | DX: K76.0 Fatty (change of) liver, not elsewhere classified (principal) | CPT/HCPCS: 76700 ==

== ENCOUNTER 2025-04-24 13:01 | Outpatient (REF) | payer OTHER, SELFPAY ==
--- NOTE | ~2025-04-24 | US_ITS ---
EXAMINATION: US PELVIS CLINICAL INFORMATION: Lower abdominal pain, unspecified. LMP = 2 weeks ago. COMPARISON: None available. TECHNIQUE: Ultrasound of the pelvis is performed using both transabdominal and transvaginal transducers along with Doppler. Transvaginal imaging is performed due to inadequate visualization transabdominally. FINDINGS: Uterus: The uterus is anteverted, anteflexed, and measures 8.2 x 2.9 x 4.8 cm. Arcuate configuration. The cervix has a normal appearance. The double wall endometrial thickness is 9 mm. The uterus is smooth in contour and has normal myometrial echogenicity. No visible fibroid. Adnexa: Both ovaries are visualized. There is normal color flow to the adnexa. There is no ovarian torsion. There is no pelvic ascites or fluid collection. There are no adnexal masses. Right ovary measures 3.0 x 2.0 x 1.9 cm. Volume = 6.0 mL. Normal sonographic appearance. Left ovary measures 3.3 x 1.7 x 2.1 cm. Volume = 6.0 mL. Normal sonographic appearance. US/US pelvic and transvaginal IMPRESSION: Normal pelvic ultrasound. Electronically signed by: Paulo Burgos MD 04/24/2025 01:47 PM [facility]
--- OUTSIDE RECORDS SUMMARY | 2025-04-24 16:40 | XMS_ITS | Encounter Summary ---
Author Organization [facility] Address [address] [place] [address] [place] [address] Phone Care Team Providers Care Maternity Nurse Name Role Phone Rory Mcconnell MD Unavailable Iggy Kent MD Unavailable [phone] Rory Mcconnell MD Primary Care Provider Leonel Shipman MD Primary Care Provider [phone] Encounter Details Date Type Department Care Team (Latest Contact Info) Description 12/12/2022 Transcribe Orders Virtual Department 30 [place] [address] Katelin Muñoz MD [address] [place] [address], [facility] 8 [place] [address] [email or web address] Arthralgia of left acromioclavicular joint (Primary Dx) [...] Pulmonary, Allergy and Critical Care Medicine 10 [facility] [place] [place] [address] Mar Deras MD 10 [facility] 2nd [place] [address] 07/23/2026 3:00 PM EST Office Visit [facility] [place] [address] Cecilia Conn 22 [facility], [address] [place] [address] [email or web address] documented as of this encounter [...] documented as of this encounter Care Teams Maternity Nurse Relationship Specialty Start Date End Date Rory Mcconnell MD [address] [address] [email or web address] PCP - General 05/28/17 12/22/22 Leonel Shipman MD [address] [place] [address] PCP - General Internal Medicine 12/23/22 Rory Mcconnell MD [address] [address] [email or web address] Historical LMR Provider 03/12/17 Iggy Kent MD [address] [place] [address], [place] [id number] [email or web address] Historical LMR Provider 03/12/17 documented as of this encounter Additional Source Comments The information contained in this document represents components of the legal health record. It is not the complete legal health record.[facility]
--- OUTSIDE RECORDS SUMMARY | 2025-04-24 16:40 | XMS_ITS | Encounter Summary ---
Author Organization [facility] Address [address] [place] [address] Phone Care Team Providers Care Automotive Project Engineer Name Role Phone Rory Mcconnell MD Unavailable Iggy Kent MD Unavailable Rory Mcconnell MD Primary Care Provider Leonel Shipman MD Primary Care Provider [phone] Encounter Details Date Type Department Care Team (Latest Contact Info) Description 10/13/2022 Transcribe Orders Virtual Department 30 [place] [address] Rory Mcconnell MD [address] [place] [id number] [email or web address] Supraclavicular mass (Primary Dx) Social History [...] Pulmonary, Allergy and Critical Care Medicine 10 [facility] [place] [address] Mar Deras MD [address] [address] [email or web address] 07/23/2026 3:00 PM EST Office Visit [facility] [address] [place] [address] Cecilia Conn [address] [place] [address], [address] [place] [address] [email or web address] documented as of this encounter [...] documented as of this encounter Care Teams Automotive Project Engineer Relationship Specialty Start Date End Date Rory Mcconnell MD [address] [place] [address] [email or web address] PCP - General 05/28/17 12/22/22 Leonel Shipman MD [address] [place] [address] PCP - General Internal Medicine 12/23/22 Rory Mcconnell MD [address] [place] [address] [email or web address] Historical LMR Provider 03/12/17 Iggy Kent MD [address] [place] [address] 102 [place] [address] [email or web address] Historical LMR Provider 03/12/17 documented as of this encounter Additional Source Comments The information contained in this document represents components of the legal health record. It is not the complete legal health record.[facility]
--- OUTSIDE RECORDS SUMMARY | 2025-04-24 16:40 | XMS_ITS | Encounter Summary ---
Author Organization [facility] Address [address] [place] [address] Phone Care Team Providers Care Gastroenterology Physician Name Role Phone Clover Shankarnifer Christo PRODUCT MANAGEMENT MANAGER Unavailable [phone] Rose Maciel PRODUCT MANAGEMENT MANAGER Unavailable Rory Mcconnell MD Unavailable [phone] Bernie Sharp MD Unavailable Iggy Kent MD Unavailable [phone] Simon Oliveira MD Unavailable [phone] Rory Mcconnell MD Primary Care Provider Leonel Shipman MD Primary Care Provider [phone] Reason for Referral * Consultation (Elective) - Closed Specialty Diagnoses / Procedures Referred By Contadelaida t Referred To Contact Pulmonary Disease Rory Mcconnell MD Phone: tel: fax: mailto:[email or web address] Phone: tel: Referral ID Status Reason Start Date Expiration Date Visits Re quested Visits Authorized [id number] Closed 02/18/2021 02/18/2022 1 1 Encounter Details Date Type Department Care Team ([facility] Contact Info) Description 02/18/2021 Transcribe Orders [facility] Pulmonary, Allergy and Critical Care Medicine 10 [place] [address] Rory Mcconnell MD [address] [address] [email or web address] Social History Tobacco Use Types Packs/Day [...] Pulmonary, Allergy and Critical Care Medicine 10 [place] [address] Mar Deras MD [address] [place] [address] 07/23/2026 3:00 PM EST Office Visit [facility] [address] [address] Cecilia Conn [address] [place] [address], [address] [place] [address] [email or web address] Scheduled Referrals Name Type Priority Associated Diagnoses Order Schedule Ambulatory referral to [facility] Pulmonology Outpatient Referral Routine Ordered: 02/18/2021 documented as of this encounter Visit Diagnoses Not on filedocumented in this encounter Care Teams Gastroenterology Physician Relationship Specialty Start Date End Date Rory Mcconnell MD [address] [address] PCP - General 05/28/17 12/22/22 Leonel Shipman MD [address] [place] [address] PCP - General Internal Medicine 12/23/22 Minerva Shankar NP 30 [place] [address] Historical LMR Provider 03/12/17 Rose Mariee NP [address] [place] [address] 2_[place] [address] [email or web address] Historical LMR Provider 03/12/17 06/01/21 Rory Mcconnell MD [address] [place] [address] [email or web address] Historical LMR Provider 03/12/17 Bernie Sharp MD [address] [place] [address] Historical LMR Provider 03/12/17 06/01/21 Iggy Kent MD [address] [place] [address] Historical LMR Provider 03/12/17 Simon Oliveira MD [address] [place] [address] Historical LMR Provider 03/12/17 2 documented as of this encounter Additional Source Comments The information contained in this document represents components of the legal health record. It is not the complete legal health record.[facility]
--- OUTSIDE RECORDS SUMMARY | 2025-04-24 16:40 | XMS_ITS | Encounter Summary ---
Author Organization [facility] Address [address] [place] [address] Phone Care Team Providers Care Girls Swimming Coach Name Role Phone Minerva Shankar FELT CEMENTER Unavailable Rose Maciel FELT CEMENTER Unavailable [phone] Rory Mcconnell MD Unavailable [phone] Bernie Sharp MD Unavailable Iggy Knet MD Unavailable Simon Oliveira MD Unavailable [phone] Rory Mcconnell MD Primary Care Provider Rory Mcconnell MD Unavailable Rory Mcconnell MD Unavailable [phone] Rory Mcconnell MD Unavailable [phone] Leonel Shipman MD Primary Care Provider [phone] Encounter Details Date Type Department Care Team (Latest Contact Info) Description 07/27/2017 Transcribe Orders [facility] Phleb Flaca [address] [id number] Rory Mcconnell MD [address] [place] [address] [phone] Immunity status testing (Primary Dx) Social History [...] Description 06/15/2025 8:20 AM EST Office Visit [facility] Pulmonary, Allergy and Critical Care Medicine 10 [facility] [place] [address] Mar Deras MD 10 [facility] 2nd [place] [address] 07/23/2026 3:00 PM EST Office Visit [address] [address] Cecilia Conn 22 [facility], [address] [place] [address] [email or web address] documented as of this encounter Results * Hepatitis B surface antigen (07/27/2017 2:01 PM EST) HBV SURFACE ANTIGEN Negative Negative [facility] Blood 07/27/2017 2:01 PM EST 07/27/2017 2:07 PM EST Rory Mcconnell MD LAB BLOOD BKR ORDERABLES Fin al Result [facility] 30 [place] [address] * Hepatitis B surface antibody (07/27/2017 2:01 PM EST) HBV SURFACE ANTIBODY Positive [facility] Comment: Unvaccinated: Negative Vaccinated: Positive Blood 07/27/2017 2:01 PM EST 07/27/2017 2:07 PM EST Rory Mcconnell MD LAB BLOOD BKR ORDERABLES Fin al Result [facility] 30 [place] [address] documented in this encounter Visit Diagnoses Diagnosis Immunity status testing- Primary Antibody response examination documented in this encounter Additional Health Concerns Infection Onset Date Last Indicated Resolved Time CoV-Risk 09/19/2019 09/19/2019 09/20/2019 12:2 2 PM EDT COVID-19 09/19/2019 09/19/2019 10/22/2019 1:26 AM EDT documented as of this encounter Care Teams Girls Swimming Coach Relationship Specialty Start Date End Date Rory Mcconnell MD [address] [address] [email or web address] PCP - General 05/28/17 12/22/22 Leonel Shipman MD [address] [place] [address] PCP - General Internal Medicine 12/23/22 Minerva Shankar NP [address] [place] [address] Historical LMR Provider 03/12/17 Rose Mariee NP [address] [place] [address] 2_[place] [address] [email or web address] Historical LMR Provider 03/12/17 06/01/21 Rory Mcconnell MD [address] [place] [address] [email or web address] Historical LMR Provider 03/12/17 Bernie Sharp MD [address] [place] [address], [address] [address] [email or web address] Historical LMR Provider 03/12/17 06/01/21 Iggy Kent MD [address] [place] [address] [email or web address] Historical LMR Provider 03/12/17 Simon Oliveira MD [address] [place] [address] Historical LMR Provider 03/12/17 2 Rory Mcconnell MD [address] [address] [email or web address] Insurance Assigned Provider 09/26/17 06/26/18 Rory Mcconnell MD [address] [address] [email or web address] Insurance Assigned Provider 10/24/18 04/30/19 Rory Mcconnell MD [address] [address] [email or web address] Insurance Assigned Provider 02/04/20 10/28/20 documented as of this encounter Additional Source Comments The information contained in this document represents components of the legal health record. It is not the complete legal health record.[facility]
--- OUTSIDE RECORDS SUMMARY | 2025-04-24 16:40 | XMS_ITS | Encounter Summary ---
Author Organization [facility] Address [address] [place] [address] Phone Care Team Providers Care Job Hand Name Role Phone Rory Mcconnell MD Unavailable [phone] Iggy Kent MD Unavailable [phone] Leonel Shipman MD Primary Care Provider [phone] Encounter Details Date Type Department Care Team (Late st Contact Info) Description 04/06/2025 Orders Only [facility] [address] Floor, [address] [place] [address] Provider, MD Tj [address] [place] [address] Social History Tobacco Use Types Packs/Day [...] Upcoming Encounters Date Type Department Care Team ([facility] Contact Info) Description 06/15/2025 8:20 AM EST Office Visit [facility] Pulmonary, Allergy and Critical Care Medicine 10 [facility] [place] [address] Mar Deras MD [address] [address] 07/23/2026 3:00 PM EST Office [facility] [address] [place] [address] Cecilia Conn [address] [place] [address], [address] [place] [address] [email or web address] documented as of this encounter [...] documented as of this encounter Care Teams Job Hand Relationship Specialty Start Date End Date Leonel Shipman MD [address] [place] [address] PCP - General Internal Medicine 12/23/22 Rory Mcconnell MD [address] [place] [address] 12 [place] [address] [email or web address] Historical LMR Provider 03/12/17 Iggy Kent MD [address] [place] [address] [email or web address] Historical LMR Provider 03/12/17 documented as of this encounter Additional Source Comments The information contained in this document represents components of the legal health record. It is not the complete legal health record.[facility]
--- OUTSIDE RECORDS SUMMARY | 2025-04-24 16:40 | XMS_ITS | Encounter Summary ---
Author Organization [facility] Address [address] [place] [address] [place] [address] Phone Care Team Providers Care Manager Assurance Name Role Phone Rory Mcconnell MD Unavailable Iggy Kent MD Unavailable Rory Mcconnell MD Primary Care Provider Leonel Shipman MD Primary Care Provider [phone] Encounter Details Date Type Department Care Team (Late Contact Info) Description 12/26/2021 Procedure Pass [facility], [place] Scan - [address] [address] Social History Tobacco Use Types Packs/Day Years [...] Pulmonary, Allergy and Critical Care Medicine 10 [facility] [place], [place] [id number] aMr Deras MD [address] [address] 07/23/2026 3:00 PM EST Office [facility] [address] [place] [address] ScottdelmaMagiTiffanie Cecilia 22 [facility], [address] [place] [address] [email or web address] documented as of this encounter Visit Diagnoses Not on filedocumented in this encounter Care Teams Manager Assurance Relationship Specialty Start Date End Date Rory Mcconnell MD [address] [address] [email or web address] PCP - General 05/28/17 12/22/22 Leonel Shipman MD [address] [place] [address] PCP - General Internal Medicine 12/23/22 Rory Mcconnell MD [address] [place] [address] [email or web address] Historical LMR Provider 03/12/17 Iggy Kent MD 22 [facility], [address] [place] [address] Historical LMR Provider 03/12/17 documented as of this encounter Additional Source Comments The information contained in this document represents components of the legal health record. It is not the complete legal health record.[facility]
--- OUTSIDE RECORDS SUMMARY | 2025-04-24 16:40 | XMS_ITS | Encounter Summary ---
Author Organization [facility] Address [address] [place] [address] [place] [address] Phone Care Team Providers Care Extractor And Wringer Operator Name Role Phone Rory Mcconnell MD Unavailable [phone] Iggy Kent MD Unavailable Rory Mcconnell MD Primary Care Provider Leonel Shipman MD Primary Care Provider [phone] Encounter Details Date Type Department Care Team (Late Contact Info) Description 12/26/2021 Procedure Pass [facility] 30 [place] [address] Social History Tobacco Use Types Packs/Day Years [...] Pulmonary, Allergy and Critical Care Medicine 10 [place], [place] [id number] Mar Deras MD [address] [id number] [email or web address] 07/23/2026 3:00 PM EST Office Visit [facility] [address] [place] [address] ScottdelmaCecilia Louis 22 [facility], [address] [place] [address] [email or web address] documented as of this encounter Visit Diagnoses Not on filedocumented in this encounter Care Teams Extractor And Wringer Operator Relationship Specialty Start Date End Date Rory Mcconnell MD [address] [place] [address] [email or web address] PCP - General 05/28/17 12/22/22 Leonel Shipman MD [address] [place] [address] PCP - General Internal Medicine 12/23/22 Rory Mcconnell MD [address] [address] [email or web address] Historical LMR Provider 03/12/17 Iggy Kent MD 22 [facility], [address] [place] [address] Historical LMR Provider 03/12/17 documented as of this encounter Additional Source Comments The information contained in this document represents components of the legal health record. It is not the complete legal health record.[facility]
--- OUTSIDE RECORDS SUMMARY | 2025-04-24 16:40 | XMS_ITS | Encounter Summary ---
Author Organization [facility] Address [address] [place] [address] [place] [address] Phone Care Team Providers Care Highway Design Engineer Name Role Phone Rory Mcconnell MD Unavailable Iggy Kent MD Unavailable [phone] Leonel Shipman MD Primary Care Provider [phone] Encounter Details Date Type Department Care Team (Late st Contact Info) Description 10/27/2024 Ancillary Orders [facility], X-Ray - [address] [address] Leonel Shipman MD [address] [place] [address] Alfonzo Ashely [place] [address] Localized swelling, mass and lump, neck (Primary [...] Upcoming Encounters Date Type Department Care Team ([facility] st Contact Info) Description 06/15/2025 8:20 AM EST Office Visit [facility] Pulmonary, Allergy and Critical Care Medicine 10 [facility] [place] [address] Mar Deras MD 10 [facility] 2nd [place] [address] [email or web address] 07/23/2026 3:00 PM EST Office Visit [facility] [place] [address] Cecilia Conn 22 [facility], [address] [place] [address] [email or web address] documented as of this encounter Visit Diagnoses Diagnosis Localized swelling, mass and lump, neck- Primary Swelling, mass, or lump in head and neck documented in this encounter Additional Health Concerns Assessment Noted Time PHQ-9 Depression Total Score: 9 05/20/20 22 1:33 PM EST PHQ-2 Depression Total Score: 0 05/20/20 22 1:33 PM EST documented as of this encounter Care Teams Highway Design Engineer Relationship Specialty Start Date End Date Leonel Shipman MD [address] [place] [address] PCP - General Internal Medicine 12/23/22 Rory Mcconnell MD [address] [place] [address] [email or web address] Historical LMR Provider 03/12/17 Iggy Kent MD [address] [place] [address], [address] [place] [address] [email or web address] Historical LMR Provider 03/12/17 documented as of this encounter Additional Source Comments The information contained in this document represents components of the legal health record. It is not the complete legal health record.[facility]
--- OUTSIDE RECORDS SUMMARY | 2025-04-24 16:40 | XMS_ITS | Encounter Summary ---
Author Organization [facility] Address [address] [place] [address] [place] [address] Phone Care Team Providers Care Sugar Mixer Name Role Phone Rory Mcconnell MD Unavailable Iggy Kent MD Unavailable Rory Mcconnell MD Primary Care Provider Leonel Shipman MD Primary Care Provider [phone] Encounter Details Date Type Department Care Team (Late Contact Info) Description 05/20/2022 Procedure Pass Non-Invasive Cardiology [address] [place] [address] Social History Tobacco Use Types Packs/Day Years [...] Pulmonary, Allergy and Critical Care Medicine 10 [place], [place] [phone] Mar Deras MD [address] [phone] 07/23/2026 3:00 PM EST Office Visit [facility] [address] [place] [address] ScottdelmaCecilia Louis 22 [facility], [address] [place] [address] [email or web address] documented as of this encounter Visit Diagnoses Not on filedocumented in this encounter Additional Health Concerns Assessment Noted Time PHQ-9 Depression Total Score: 9 05/20/20 22 1:33 PM EST PHQ-2 Depression Total Score: 0 05/20/20 22 1:33 PM EST documented as of this encounter Care Teams Sugar Mixer Relationship Specialty Start Date End Date Rory Mcconnell MD [address] [place] [address] PCP - General 05/28/17 12/22/22 Leonel Shipman MD [address] [place] [address] PCP - General Internal Medicine 12/23/22 Rory Mcconnell MD [address] [place] [address] Historical LMR Provider 03/12/17 Iggy Kent MD [address] [place] [address], [address] [place] [address] Historical LMR Provider 03/12/17 documented as of this encounter Additional Source Comments The information contained in this document represents components of the legal health record. It is not the complete legal health record.[facility]
--- OUTSIDE RECORDS SUMMARY | 2025-04-24 16:40 | XMS_ITS | Clinical Summary ---
Author Organization [facility] Address [facility] [address] [address] Phone Care Team Providers Care Felt Cutter Name Role Phone Rory Mcconnell MD Unavailable [phone] Iggy Kent MD Unavailable [phone] Leonel Shipman MD Primary Care Provider [phone] Allergies Active Allergy Reactions Criticality Noted Date Comments Aller Ext-Turkish Cockroach 022 Cat Dander 12/26/2021 Dog Dander 12/26/2021 Grass Pollen 12/26/2021 House Dust Mite 12/26/2021 Mold 12/26/2021 Mouse Epithelium Allergenic Extract 12/26/2021 Other 12/26/2021 Rabbit 12/26/2021 Ragweed 12/26/2021 Tree And Shrub Pollen 12/26/2021 Phoenix Pollen-Argentine Plantain 022 Medications cetirizine (ZYRTEC) 10 MG [...] each 4 5 Active Additional Information Patient taking differently: As needed, Reported on 03/28/2025 fluticasone furoate-vilanter oL (BREO ELLIPTA) 100-25 mcg/dose inhaler Inhale 1 puff into the lungs daily. 60 each 5 5 Active albuterol 90 mcg/actuation inhaler Inhale 2 puffs into the lungs every 6 (six) hours as needed for wheezing or shortness of breath/dyspnea. 18 g 5 Active fexofenadine (NADIA) 180 MG tablet Take 180 mg by mouth daily. Active Active Problems Problem Noted Date Diagnosed Date [...] common. She feels she is coping well. [place] paperwork filled [place] to continue her work [...] this time. Referred to SMART program at [facility] for resiliency training. Discussed this is [...] PM EST): Patient unable to see the [facility] long COVID specialist due to her insurance reasons. 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 I will send a referral for her to see this person. Shortness of breath 12/26/2021 Assessment & Plan (06/10/2024 1:13 PM EST): [id number] Respiratory Symptoms Persistent respiratory symptoms following COVID-19 [...] PM EDT): Moderate persistent asthma with exacerbations [id number] infection. Despite normal pulmonary function test results, [...] Assessment & Plan (06/10/2024 1:13 PM EST): Rola's asthma control has worsened from a 2 [...] Department Care Team Description 04/06/2025 Orders Only [facility] [address], [address] [place] [address] Provider, MD Tj 03/30/2025 9:00 AM EST Nurse Only [facility] [address] [place] [address] Delvin Gross MD Zaman, Tonbira S, MD Moderate persistent asthma without complication (Primary Dx) 03/28/2025 4:00 PM EST Office Visit [address], [address] [place] [address] Sofie Hansen, PAMagiC Palpitations (Primary Dx) 03/22/2025 4:11 PM EDT - 03/22/2025 11:59 PM EDT Hospital Encounter [facility] [address] [place] [address] Mar Deras MD Discharge Disposition: Home or Self Care 03/15/2025 Transcribe Orders [facility] [address] [place] [address] Mar Deras MD 02/27/2025 Telephone [facility] [address] [place] [address] Sadie Gillespie Covid + Flu vaccines from [...] Pulmonary, Allergy and Critical Care Medicine [address] [place] [address] Mar Deras MD [address] [facility] [address] [place] [address] 07/23/2026 3:00 PM EST Office Visit [facility] [place] [address] [place] [address] Cecilia Conn [address] [facility], [address] [place] [address] [email or web address] Health Maintenance Due Date Last Done [...] Volumes; Additional Testing: Exhaled Nitric Oxide Test ([facility], [facility], [facility], [facility] and [facility] only); Performing [...] measurement. Technical Note: As of 04/05/2024, the [facility] Pulmonary Function Testing (PFT) Laboratory transitioned [...] please contact the interpreting physician or PFT dental laboratory assistant. For further discussion of this issue please see Kimmie et al [facility] 2022;2078):[id number]. Please Note: Not all PFT labs [...] SEE NARRATIVE - 07/27/2020 8:45 AM EST [address] [address] [employer] Salesperson: Radha Heredia MD [employer]OUN[employer] HAND Cytology Report FINAL DIAGNOSIS A. PAP SMEAR [...] 52, 56, 58, 59, 66, 68) by [facility] On[facility] HR-HPV analysis. Clinical correlation is advised. This HPV test was performed at [facility], [address] [place] [address]. This test has been FDA approved for [facility] cervical cytology specimens. The accuracy and precision of this test for all other specimen sources has been verified in the Cytopathology Laboratory of the [facility] and has not been cleared or approved by the U.S. Food and Drug Administration. Clinical correlation is advised. CLINICAL HISTORY Date of Last Menstrual Period: 06-27-2020 Other Clinical Conditions: Screening Pap SPECIMEN SOURCE A: PAP SMEAR (SUREPATH) CE Patient Name: ROLA BURK : 1990 (Age: 29) Sex: F Institution: [facility] Location: [facility] Date of Collection: 07/23/2020 Date of Reported: 07/27/2020 08:45 Results to: Daiana Robles MSN, BS us Daiana Robles PUBLIC TRANSIT BUS DRIVER CYTOLOGY ORDERABLES Final Resu lt Performing Organization Address City/[facility] de Phone Number SEE NARRATIVE * Hepatitis B surface antigen (07/27/2017 2:01 PM EST) HBV SURFACE ANTIGEN Negative Negative [facility] Blood 07/27/2017 2:01 PM EST 07/27/2017 2:07 PM EST us Rory Mcconnell MD LAB BLOOD BKR ORDERABLES Fin al Result Performing Organization Address City/[facility] Co de Phone Number [address] [address] from Last 3 Months or Most Recently Relevant to Health Maintenance Insurance [facility] Care Teams Felt Cutter Relationship Specialty Start Date End Date Leonel Shipman MD [address] [place] [address] [address] [place] [address] PCP - General Internal Medicine 12/23/22 Rory Mcconnell MD [address] [place] [address] [address] [place] [address] [email or web address] Historical LMR Provider 03/12/17 Iggy Kent MD [address] [place] [address] [address] [place] [address] [email or web address] Historical LMR Provider 03/12/17 Additional Source Comments The information contained in this document represents components of the legal health record. It is not the complete legal health record.[facility]
== END 2025-04-24 13:02 | disposition home or self-care (01) ==
LOC: HO.US 13:01
PROVIDERS: PCP Internal Medicine; Visit Provider Internal Medicine
DX: R10.30 Lower abdominal pain, unspecified (principal)
CPT/HCPCS: 76830; 76856

== ENCOUNTER → 2025-04-24 13:04 | Outpatient (BNV) | payer OTHER, SELFPAY | PROVIDERS: PCP Internal Medicine; Visit Provider Radiology Diagnostic Radiology | DX: R10.30 Lower abdominal pain, unspecified (principal) | CPT/HCPCS: 76830; 76856 ==